=== PATIENT | male | born 1945 | race Caucasian/White ===

== ENCOUNTER → 2024-01-01 11:12 | Outpatient (REF) | payer MEDICARE, OTHER, SELFPAY | LOC: RAD 11:12 | PROVIDERS: ATTENDING PHYSICIAN Internal Medicine Gastroenterology; FAMILY PHYSICIAN Student in an Organized Health Care Education/Training Program | DX: Z85.038 Personal history of other malignant neoplasm of large intestine (principal) | CPT/HCPCS: 71260; 74177; Q9967 ==

== ENCOUNTER → 2024-04-19 09:36 | Outpatient (REF) | payer MEDICARE, OTHER, SELFPAY ==
[2024-04-19 09:55] VITALS: BP 143/86; BP_SYST 61
[2024-04-19] MEDS: ANCEF 10 IV (10:17)
[2024-04-19 11:24] VITALS: BP 126/67
[2024-04-19 11:30] VITALS: BP 139/48
== END ==
LOC: RADI 09:36
PROVIDERS: ATTENDING PHYSICIAN Internal Medicine Hematology & Oncology; FAMILY PHYSICIAN Student in an Organized Health Care Education/Training Program
DX: C18.3 Malignant neoplasm of hepatic flexure (principal)
CPT/HCPCS: 36561; 73610; 73630; 76937; 77001; 99152; 99153

== ENCOUNTER → 2024-04-20 13:34 | Outpatient (REF) | payer MEDICARE, OTHER, SELFPAY ==
[2024-04-20 11:49] LABS: % Basophils 1.2 % (0-2); % Eosinophils 3.7 % (0-6); % Immature Granulocytes 0.1 % (0-0.5); % Lymphocytes 26.8 % (20.5-51.1); % Monocytes 9.2 % (1.7-9.3); Absolute Basophils 0.1 10^3/uL (0-0.2); Absolute Eosinophils 0.3 10^3/uL (0-0.7); Absolute Monocytes 0.7 10^3/uL (0.1-0.6); Absolute Neutrophils 4.4 10^3/uL (1.4-6.5); Hematocrit 33.5 % (39.0-52.0); Hemoglobin 11.1 g/dL (13.0-18.0); Mean Corp Hgb Conc. 33.1 g/dL (33.0-37.0); Mean Corpuscular Hgb 29.7 pg (27.0-31.0); Mean Corpuscular Volume 89.6 fL (80.0-94.0); Mean Platelet Volume 9.6 fL (7.4-10.4); Platelet Count 285 10^3/uL (130-400); Red Blood Cell Count 3.74 10^6/uL (4.70-6.10); Red Cell Dist. Width 12.9 % (11.5-14.5); White Blood Cell Count 7.4 10^3/uL (4.8-10.8)
[2024-04-20 13:13] LABS: ALT (SGPT) 19 U/L (0-50); AST (SGOT) 30 U/L (17-59); Albumin 4.1 g/dl (3.5-5.0); Alkaline Phosphatase 85 U/L (38-126); Blood Urea Nitrogen 25 mg/dl (9-20); Calcium 9.3 mg/dl (8.4-10.2); Carbon Dioxide 23 mmol/L (22-30); Chloride 105 mmol/L (98-107); Glucose 90 mg/dl (70-99); Potassium 4.5 mmol/L (3.5-5.1); Sodium 138 mmol/L (135-145); Total Bilirubin 0.5 mg/dl (0.2-1.3); Total Protein 6.9 g/dl (6.3-8.2); eGFR 55.88
== END ==
LOC: OIDL 13:34
PROVIDERS: ATTENDING PHYSICIAN Internal Medicine Hematology & Oncology
DX: C18.3 Malignant neoplasm of hepatic flexure (principal)
CPT/HCPCS: 80053; 85025

== ENCOUNTER 2024-04-24 13:29 | Inpatient (IN) | payer MEDICARE, OTHER, SELFPAY ==
[2024-04-24] VITALS (21 sets, daily range): BP systolic 119–174; BP diastolic 58–87; PULSE 64; BMI 28.9; BMI 29.5
[2024-04-24] MEDS: DUONEB 3 ML INH (09:46)
--- NOTE | 2024-04-24 09:56 | ED.GENMED ---
History of Present Illness
<MIRELLA Rosa - Last Filed: 04/24/24 11:41>
General
Chief Complaint: Chest Pain
Source: patient
Exam Limitations: none
Time Seen by Provider: 04/24/24 09:38
Nursing documentation reviewed up to this point in time: agreed with
History of Present Illness
History of Present Illness:
Patient is a 78-year-old male currently undergoing treatment for colon cancer presents to the ER for evaluation of chest pain shortness of breath. Yesterday he noticed he was more short of breath on a walk and then around 2:30�3 AM this morning
developed left-sided chest pain. He woke up with continued chest pain this morning and shortness of breath. He did to aspirin. He continues to complain of shortness of breath he does feel pain in the chest and in the middle of his back as well.
He has no cardiac history.
He denies any lung history. He is not on blood thinners. He denies any recent fever or chills. He denies any other recent illness. He did have his port placed on Thursday and had first chemo on (4 days ago).
Review of Systems
<MIRELLA Rosa - Last Filed: 04/24/24 11:41>
Review of Systems
Allergies reviewed?: Yes
All Other Systems: ROS reviewed and negative except as documented in HPI and ROS
Constitutional: Denies fever, fatigue or chills
EENT: Reports no symptoms
Respiratory: Reports trouble breathing; Denies cough
Cardiac: Reports chest pain; Denies palpitations or syncope
ABD/GI: Reports no symptoms
: Reports no symptoms
Musculoskeletal: Reports back pain
Neurological: Reports no symptoms
Endocrine: Reports no symptoms
Hematologic/Lymphatic: Reports no symptoms
Psychiatric: Reports no symptoms
Phy Exam
<MIRELLA Rosa - Last Filed: 04/24/24 11:41>
General Physical Exam
General Presentation: no apparent distress
General age: appears stated age
General Skin: warm and dry
General Habitus: normal
General Mental: alert
General Hydration: appears well hydrated
Cardiovascular Exam
Cardiovascular Exam: regular rate/rhythm, no murmur and normal peripheral pulses
Pulmonary Exam
Pulmonary Exam: no respiratory distress and other (exp wheezing )
Neurological Exam
Neurological Exam: alert and oriented x3
Musculoskeletal Exam
Musculoskeletal Exam: full ROM
Skin Exam
Skin Exam: normal color and warm/dry
Psychiatric Exam
Psychiatric Exam: normal mood/affect
Scores
<MIRELLA Rosa - Last Filed: 04/24/24 11:41>
Heart Score for Chest Pain Patients
STEMI patient?: Not applicable
Course
<MIRELLA Rosa - Last Filed: 04/24/24 11:41>
Orders/Labs/Results
Orders:
Orders
04/24/24 09:40
Electrocardiogram (*1) Urgent
Reason for Study: Chest Pain
Cardiac Monitoring- Treatment ONCE
EKG- Treatment ONCE
IV Insert/Care/Rem.- Treatment PRN
O2 Therapy [RESP] Urgent
Titrate/Wean O2 to maintain O2 sat greater than (%): 90
Special Instructions: Maintain sats >/=90%
Pulse Ox/spot Check [RESP] Urgent
Quantity: 1
Special Instructions: ON ROOM AIR
04/24/24 09:44
CXR [CR Chest Portable - 1 View] Stat
Comment:
Reason For Exam: sob
Reason Study Needs to be Portable: Patient Unstable
04/24/24 09:45
Ipratropium/Albuterol Sulfate [Duoneb] 3 ml .ROUTE .[facility]-MED ONE
04/24/24 09:46
Ipratropium/Albuterol Sulfate [Duoneb] 3 ml INH R NOW ONE
04/24/24 09:55
CT Chest Pe Study Urgent
Comment:
Reason For Exam: sob
04/24/24 10:04
Complete Blood Count/With Diff Urgent
Comprehensive Metabolic Panel Urgent
Pro-BNP [NT-proBNP] Urgent
Troponin I Urgent
Abnormal Lab Results
04/24/24
10:04
RBC 4.03 L 10^6/uL
(4.70-6.10)
Hgb 11.9 L g/dL
(13.0-18.0)
Hct 36.9 L %
(39.0-52.0)
MCHC 32.2 L g/dL
(33.0-37.0)
Absolute Neuts (auto) 6.8 H 10^3/uL
(1.4-6.5)
Absolute Monos (auto) 0.7 H 10^3/uL
(0.1-0.6)
Lymphocytes % 18.3 L %
(20.5-51.1)
BUN 25 H mg/dl
(9-20)
Creatinine 1.4 H mg/dL
(0.7-1.3)
Glucose 129 H mg/dl
(70-99)
Troponin I 0.068 H* ng/ml
04/24/24 10:04
04/24/24 10:04
Vital Signs
Initial and Last Documented VS:
Initial Vital Signs
Temp Pulse Resp BP Pulse Ox
97.5 F 68 18 141/66 99
04/24/24 09:49 04/24/24 09:49 04/24/24 09:49 04/24/24 09:49 04/24/24 09:49
Last Documented Vital Signs
Temp Pulse Resp BP Pulse Ox
97.5 F 68 18 141/66 99
04/24/24 09:49 04/24/24 09:49 04/24/24 09:49 04/24/24 09:49 04/24/24 09:49
Seat Nailer consulted with Physician
Seat Nailer consulted with physician?: Yes
Name of Physician Consulted: Julio Cesar
<Kari Harrell MD - Last Filed: 04/24/24 10:13>
Orders/Labs/Results
Orders:
Orders
04/24/24 09:40
Electrocardiogram (*1) Urgent
Reason for Study: Chest Pain
Cardiac Monitoring- Treatment ONCE
EKG- Treatment ONCE
IV Insert/Care/Rem.- Treatment PRN
O2 Therapy [RESP] Urgent
Titrate/Wean O2 to maintain O2 sat greater than (%): 90
Special Instructions: Maintain sats >/=90%
Pulse Ox/spot Check [RESP] Urgent
Quantity: 1
Special Instructions: ON ROOM AIR
04/24/24 09:44
CXR [CR Chest Portable - 1 View] Stat
Comment:
Reason For Exam: sob
Reason Study Needs to be Portable: Patient Unstable
04/24/24 09:45
Ipratropium/Albuterol Sulfate [Duoneb] 3 ml .ROUTE .[facility]-MED ONE
04/24/24 09:46
Ipratropium/Albuterol Sulfate [Duoneb] 3 ml INH R NOW ONE
04/24/24 09:55
CT Chest Pe Study Urgent
Comment:
Reason For Exam: sob
04/24/24 10:04
Complete Blood Count/With Diff Urgent
Comprehensive Metabolic Panel Urgent
Pro-BNP [NT-proBNP] Urgent
Troponin I Urgent
Abnormal Lab Results
04/24/24
10:04
RBC 4.03 L 10^6/uL
(4.70-6.10)
Hgb 11.9 L g/dL
(13.0-18.0)
Hct 36.9 L %
(39.0-52.0)
MCHC 32.2 L g/dL
(33.0-37.0)
Absolute Neuts (auto) 6.8 H 10^3/uL
(1.4-6.5)
Absolute Monos (auto) 0.7 H 10^3/uL
(0.1-0.6)
Lymphocytes % 18.3 L %
(20.5-51.1)
BUN 25 H mg/dl
(9-20)
Creatinine 1.4 H mg/dL
(0.7-1.3)
Glucose 129 H mg/dl
(70-99)
Troponin I 0.068 H* ng/ml
04/24/24 10:04
04/24/24 10:04
Vital Signs
Initial and Last Documented VS:
Initial Vital Signs
Temp Pulse Resp BP Pulse Ox
97.5 F 68 18 141/66 99
04/24/24 09:49 04/24/24 09:49 04/24/24 09:49 04/24/24 09:49 04/24/24 09:49
Last Documented Vital Signs
Temp Pulse Resp BP Pulse Ox
97.5 F 68 18 141/66 99
04/24/24 09:49 04/24/24 09:49 04/24/24 09:49 04/24/24 09:49 04/24/24 09:49
<MIRELLA Rosa - Last Filed: 04/24/24 11:41>
MDM/Problems Addressed
Differential Diagnosis Includes:
Not limited to PE less likely dissection, congestive heart failure, OK, pneumonia, bronchitis
MDM/Problems Addressed:
Patient is a 78-year-old male with recent diagnosis of colon cancer status post colon resection in January recently started chemo 4 days ago with port placed on Thursday. He started with shortness of breath yesterday and then woke up in the middle of
the night with chest pain and continued shortness of breath. He does feel short of breath currently and has pain in the chest and in the middle of his back. He presents awake alert however he presents wheezing hypoxic on room air.
Stat portable chest x-ray was ordered no pneumothorax. Neb given. ED physician at bedside will order CT to rule out PE.
1135: Patient feeling better breathing improved. Troponin is elevated with new left bundle however EKG from 2007. Possible demand ischemia from being hypoxic and short of breath. White blood count stable at 9.5 hemoglobin stable 11.9
BUN/creatinine mildly elevated 25 and 1.4 CAT scan negative for PE increased reticular and groundglass opacities within both lungs representing pneumonitis. Patient with no history of CHF low BNP pulmonary edema less likely. Case reviewed with ED
physician IV antibiotics ordered. Will require admission discussed with admitting hosp.
Chronic conditions affecting care:
Colon cancer currently receiving chemotherapy
<MIRELLA Rosa - Last Filed: 04/24/24 11:41>
*Radiology
Radiology exam reviewed: radiology read reviewed
*Pulse Oximetry
Patient hypoxic: yes
*EKG
Interpreted by ED Provider?: Yes
Interpretation: abnormal
Heart Rate: 74
Rate: normal
Rhythm: sinus
QRS Pattern: left bundle branch block
*Critical Care Note
Total Time (30-74mins, 75-104mins- exclusive of procedures): Not Applicable
comment:
Critical care statement: A total of 30 minutes of critical care time was provided for this patient. This includes management of unstable vital signs, evaluation of the patient at bedside, reviewing the patient's pertinent medical records, discussion
with consultants, review of old EKGs and review of pertinent medical records. This time with separate from time utilized to perform the aforementioned documented procedures
ED Attending Note
<MIRELLA Rosa - Last Filed: 04/24/24 11:41>
-
Portions of this chart may have been created with voice recognition software.� Occasional wrong word or��sound alike� substitutions may have occurred due to the inherent limitations of voice recognition software.
<Kari Harrell MD - Last Filed: 04/24/24 10:13>
ED Attending Note
Patient seen and examined by attending physician: Yes
I performed the substantive portion of visit, reviewed & personally made and approve the management plan that is documented in note by myself or THAD.: Yes
ED Attending Note:
78-year-old male presents emergency department with complaints of left-sided chest discomfort that he states he noticed at approximately 5:30 AM this morning continues. The pain is a 'pressure', not sudden onset, not ripping or tearing in quality.
He also notes discomfort in his, which she says is 'not new' and that he gets from time to time. He does not feel that the pain in his chest is radiating through to his back. When he got up at 8 AM this morning he noted that he was mildly short of
breath when walking around as well. He denies fever, chills, cough, sore throat, rhinorrhea, abdominal pain, nausea, vomiting, leg swelling, or other complaints. Patient has a history of cancer and just received his first chemo treatment earlier
this week. He notes that he felt profound fatigue that began yesterday. On exam, patient awake alert pleasant, neb in progress. Heart regular rate and rhythm. Patient has diffuse mild wheezing with mild Rales noted at left base, no respiratory
distress, no retractions, speaks in full sentences. Differential includes PE, pneumonia, ACS, etc. Highly doubt acute aortic dissection given history and physical.
Discharge Plan
Departure
Patient Disposition: Admit
Date of Disposition: 04/24/24
Time of Disposition: 11:37
Admit to: IMU
Admit to doctor: hospitalist
Presentation/result/management discussed w/ accepting MD/DO: Hospitalist
Patient with high blood pressure during this ER visit?: Yes
Condition: Fair
Covid-19: Not Applicable
Discharge Problem:
hypoxia, Elevated troponin, Pneumonitis, left bundle branch block
Prescriptions:
No Action
amlodipine 5 mg Tablet
5 mg PO DAILY
atorvastatin 20 mg Tablet
20 mg PO DAILY
polyethylene glycol 3350 [Miralax] 17 gram Powder In Packet
17 g PO DAILY PRN (Reason: constipation)
omeprazole 40 mg Capsule,Delayed Release(Dr/Ec)
40 mg PO DAILY
benazepril 10 mg Tablet
10 mg PO DAILY
Xanax 0.5 mg
1 tab PO HS
Referrals:
Yael Jean MD [Family Provider] -
Interventions
Interventions:
*Risk Screen - Suicide Last Done: 04/24/24 09:49
*Neglect/Abuse Screening Last Done: 04/24/24 09:49
*ED COVID-19 Vaccine History Last Done: 04/24/24 09:49
ED- Cardiac Assessment Last Done: 04/24/24 09:49
Discharge Date and Time
Print Language: MAORI
[2024-04-24 10:12] LABS: % Eosinophils 1.7 % (0-6); % Immature Granulocytes 0.3 % (0-0.5); % Lymphocytes 18.3 % (20.5-51.1); % Monocytes 7.3 % (1.7-9.3); % Neutrophils 71.4 % (42.2-75.2); Absolute Basophils 0.1 10^3/uL (0-0.2); Absolute Eosinophils 0.2 10^3/uL (0-0.7); Absolute Lymphocytes 1.7 10^3/uL (1.2-3.4); Absolute Monocytes 0.7 10^3/uL (0.1-0.6); Absolute Neutrophils 6.8 10^3/uL (1.4-6.5); Hematocrit 36.9 % (39.0-52.0); Hemoglobin 11.9 g/dL (13.0-18.0); Mean Corp Hgb Conc. 32.2 g/dL (33.0-37.0); Mean Corpuscular Hgb 29.5 pg (27.0-31.0); Mean Corpuscular Volume 91.6 fL (80.0-94.0); Mean Platelet Volume 9.8 fL (7.4-10.4); Nucleated Red Blood Cells % 0 % (-); Platelet Count 244 10^3/uL (130-400); Red Blood Cell Count 4.03 10^6/uL (4.70-6.10); Red Cell Dist. Width 13.2 % (11.5-14.5); White Blood Cell Count 9.5 10^3/uL (4.8-10.8)
[2024-04-24 10:23] LABS: ALT (SGPT) 20 U/L (0-50); AST (SGOT) 28 U/L (17-59); Alkaline Phosphatase 76 U/L (38-126); Blood Urea Nitrogen 25 mg/dl (9-20); Calcium 9.6 mg/dl (8.4-10.2); Carbon Dioxide 26 mmol/L (22-30); Chloride 106 mmol/L (98-107); Estimated Creatinine Clearance 44 ml/min; Glucose 129 mg/dl (70-99); Potassium 4.8 mmol/L (3.5-5.1); Sodium 139 mmol/L (135-145); Total Bilirubin 0.4 mg/dl (0.2-1.3); Total Protein 6.7 g/dl (6.3-8.2); eGFR 51.13
[2024-04-24 10:41] LABS: NT-proBNP 186 pg/ml; Troponin I 0.068 ng/ml
[2024-04-24] MEDS: MAXIPIME 2000 MG IV (12:09)
[2024-04-24] MEDS: VANCOCIN 300 ML IV (12:20)
[2024-04-24] MEDS: VANCOCIN 300 MG IV (12:20)
--- NOTE | 2024-04-24 12:21 | HPS.HSE ---
Family Physician
<MIRELLA Kelly - Last Filed: 04/24/24 13:46>
-
Family Physician: Yael Jean MD
Chief Complaint
<MIRELLA Kelly - Last Filed: 04/24/24 13:46>
-
Shortness of breath, SANDHU, pleuritic chest pain
History of Present Illness
78-year-old male complaining of chest pain and shortness of breath. Yesterday he reported shortness of breath on exertion with walking. He reports around 230�3 AM this morning he developed left-sided/epigastric chest pain with inspiration and a
slight nonproductive cough. He does report taking an aspirin he also reported pain in the middle of his back. He is currently undergoing chemotherapy for colon cancer had first chemo 4 days ago. He also reports he did receive 1 single dose
infusion of oxaliplatin. he denies fever, chills, cough, abdominal pain, nausea, vomiting, diarrhea, urinary symptoms. Past medical history HTN, HLD, CKD 3B, GERD, anxiety, colon cancer Dx January 2024 on current chemo, hep C with interferon
treatment 1994
Medical History
<MIRELLA Kelly - Last Filed: 04/24/24 13:46>
Past Medical History
Past Medical History: Reports Other
Additional Past Medical History:
HTN
HLD
CKD 3B
GERD
anxiety
colon cancer Dx January 2024 on current chemo
hep C with interferon treatment 1994
Former smoker quit 40 years ago
Cardiac murmur
Past Surgical History: Reports Other
Additional Past Surgical History:
Port placement 04/19/2024
Foot surgery
Social History
Tobacco: Former Smoker (Quit 40 years ago)
Alcohol: Other (6 oz 1 to 2 days a week)
Drug: None
Personal:
Living: With Family ()
Employment: Retired
Family History
Family History: Not pertinent
Allergies / Home Medications
Allergies reflects when Allergies were last updated in [facility].
Home Medications with original date entered in [facility]
Allergy/Medication List:
Allergies
Allergy/AdvReac Type Severity Reaction Status Date / Time
meperidine [From Demerol] Allergy Unknown Verified 04/15/24 17:09
Sulfa (Sulfonamide Allergy Unknown Verified 04/15/24 17:09
Antibiotics)
Home Medications
alprazolam 0.5 mg tablet 0.5 mg PO HS anxiety/sleep 04/19/24
amlodipine 5 mg tablet 5 mg PO DAILY 04/19/24
atorvastatin 20 mg tablet 20 mg PO DAILY 04/19/24
benazepril 10 mg tablet 10 mg PO DAILY 04/19/24
polyethylene glycol 3350 17 gram oral powder packet (Miralax) 17 g PO DAILY PRN constipation 04/19/24
Xeloda 3 tab PO DIRECTED 04/24/24
omeprazole 20 mg capsule,delayed release 40 mg PO HS 04/24/24
ondansetron 8 mg disintegrating tablet 8 mg PO Q8H PRN nausea/vomiting 04/24/24
prochlorperazine maleate 10 mg tablet 10 mg PO Q6H PRN nausea/vomiting 04/24/24
Review of Systems
Gerardlt;MIRELLA Kelly - Last Filed: 04/24/24 13:46>
-
History Source: Patient
A 12 point ROS was completed and negative except as noted: Yes
Constitutional: Denies Fever, Fatigue or Chills
EENT: Denies Sore Throat or Runny Nose
Respiratory: Reports Cough (Nonproductive) and Trouble Breathing (SANDHU)
Cardiac: Reports Chest Pain (Epigastric to left side with inspiration); Denies Diaphoresis, Palpitations or Syncope
Abdomen/GI: Denies Abdominal Pain, Nausea, Vomiting, Diarrhea, Constipated, Bloody Stools or Black Stools
: Denies Dysuria, Frequency, Flank Pain, Incontinence, Difficulty Voiding or Urgency
Musculoskeletal: Denies Joint Pain or Edema
Skin: Denies Itching or Rash
Neurological: Denies Dizzy, Headache or Weakness
Endocrine: Reports No Symptoms
Hematologic/Lymphatic: Reports No Symptoms
Psych: Reports Calm
Physical Exam
<MIRELLA Kelly - Last Filed: 04/24/24 13:46>
Vital Signs
Vital Signs
Temp Pulse Resp BP Pulse Ox
97.5 F 60 17 137/59 97
04/24/24 09:49 04/24/24 12:15 04/24/24 12:15 04/24/24 12:07 04/24/24 12:15
Physical Exam
General: Comfortable and Conversant; No Fever or Chills
HEENT: NormoCephalic, Anicteric, Moist mucous membranes, PERRLA, [place] Conjunctivae, No Ptosis and Neck Nontender
Respiratory: Rales (Coarse fine throughout both lung wagner); No Wheezes
Cardiac: S1/S2, Regular Rhythm and Murmur (2/6 systolic); No Rub, Gallop or Peripheral Edema
Breast: Deferred by me
GI: Soft, Non Tender, Non Distended, Normal Bowel Sounds and No Hepatosplenomegaly
Rectal: Deferred by Provider
Genito-urinary: Deferred by me
Musculoskeletal: No Clubbing, No Cyanosis and No Edema
Skin: Warm, Dry and Other (Port present right upper chest wall with surrounding resolving ecchymosis as this is new placement 6 days ago); No Rash
Neuro: AO x 3, No Motor Deficits, Nonfocal/grossly intact, Cranial Nerves Intact and No Sensory Deficits; No Slurred Speech, Facial Droop or Tremors
Psych: Calm
Laboratory Results
<MIRELLA Kelly - Last Filed: 04/24/24 13:46>
-
04/24/24 10:04
04/24/24 10:04
Laboratory Results
Total Bilirubin 0.4 mg/dl (0.2-1.3) 04/24/24 10:04
AST 28 U/L (17-59) 04/24/24 10:04
ALT 20 U/L (0-50) 04/24/24 10:04
Alkaline Phosphatase 76 U/L (38-126) 04/24/24 10:04
Troponin I 0.068 ng/ml H* 04/24/24 10:04
Impression/Plan
<MIRELLA Kelly - Last Filed: 04/24/24 13:46>
-
Impression/plan:
Admit to telemetry
# Acute hypoxic resp insuff 2/2 pneumonitis bilateral lungs likely 2/2 chemotherapy
88% RA, 97% 2 L nasal cannula
-Given IV vancomycin IV cefepime in ER we will hold further antibiotics
-Consult Onc-consulted via phone regarding consideration of possible steroids
-PT/OT/case management consult
-Hold current Xeloda
CT PE study:
1. Increased reticular and groundglass opacities within both lungs representing pneumonitis.
2. Negative for PE
3. Bronchial wall thickening mainly in the lower lung suggesting bronchitis
#Nonischemic myocardial injury
#New LBBB�since 1999 and
-Troponin 0.068 will trend
-Follow EKG
-Continue aspirin 81 mg daily, atorvastatin 20 mg daily
-Check lipid profile
EKG: NSR 74 bpm, LBBB new since March 2008 QTc 472 MS
#Colon cancer on current chemotherapy
#Hemicolectomy January 2024
#Port placement 04/19/2024
1st chemotherapy 4 days ago 04/21/2024 is on Xeloda 3 tabs twice daily
-Single dose of oxaliplatin given before oral chemo
# Hx Cardiac murmur
#HTN�benign
141/66
-Continue amlodipine, benazepril
#HLD
-Continue atorvastatin 20 mg at bedtime
#CKD 3B
Creat 1.4 appears near baseline
#Normocytic anemia
Hgb 11.9, MCV 91.6
#Hep C with interferon treatment 1994
#Former smoker quit 40 years ago
DVT prophylaxis
Subcu Lovenox
DNR per patient states his son Pete is his POA is his has dementia
<Angel Jack, DO - Last Filed: 04/24/24 14:18>
-
Impression/plan:
Admit to telemetry
# Acute hypoxic resp insuff 2/2 pneumonitis bilateral lungs likely 2/2 chemotherapy
88% RA, 97% 2 L nasal cannula
-Given IV vancomycin IV cefepime in ER we will hold further antibiotics
-Consult Onc-consulted via phone regarding consideration of possible steroids
-PT/OT/case management consult
-Hold current Xeloda
CT PE study:
1. Increased reticular and groundglass opacities within both lungs representing pneumonitis.
2. Negative for PE
3. Bronchial wall thickening mainly in the lower lung suggesting bronchitis
#Nonischemic myocardial injury
#New LBBB�since 1999 and
-Troponin 0.068 will trend
-Follow EKG
-Continue aspirin 81 mg daily, atorvastatin 20 mg daily
-Check lipid profile
EKG: NSR 74 bpm, LBBB new since March 2008 QTc 472 MS
#Colon cancer on current chemotherapy
#Hemicolectomy January 2024
#Port placement 04/19/2024
1st chemotherapy 4 days ago 04/21/2024 is on Xeloda 3 tabs twice daily
-Single dose of oxaliplatin given before oral chemo
# Hx Cardiac murmur
#HTN�benign
141/66
-Continue amlodipine, benazepril
#HLD
-Continue atorvastatin 20 mg at bedtime
#CKD 3B
Creat 1.4 appears near baseline
#Normocytic anemia
Hgb 11.9, MCV 91.6
#Hep C with interferon treatment 1994
#Former smoker quit 40 years ago
DVT prophylaxis
Subcu Lovenox
DNR per patient states his son Pete is his POA is his has dementia
Attending note:
Patient seen and examined and discussed with RACHELLE Man, and I agree with her note.
Gen-AAOx3, NAD
HEENT-NC, AT, anicteric, clear oral mm
Neck-supple
CV-reg, no M, +S1/S2
Lungs-clear B/L
Abd-soft, NT, ND
Ext-no edema
Musculoskeletal-no cyanosis, clubbing
Skin-warm and dry
Neuro-grossly non-focal
Psych-calm, cooperative
Acute hypoxic respiratory insufficiency -due to pneumonitis. Oxygenation stable on 2 L. Reportedly was 89% on room air prior to arrival.
Acute pneumonitis -Suspect inflammatory component more so than infectious. Unclear if related to recent chemotherapy versus other causes. Hold further antibiotics for now pending oncology input.
No signs or symptoms of sepsis.
CT chest shows increased reticular and groundglass opacities within both lungs. Bronchial wall thickening mainly within the lower lungs suggesting bronchitis.
FAIZA -possibly due to volume depletion. Creatinine 1.4, BUN 25. Prerenal azotemia. IV fluids. Hold LAURA inhibitor.
Troponin elevation -0.068, will trend. Monitor on telemetry. EKG shows left bundle branch block with sinus rhythm. No recent baseline EKG to compare to. Differential diagnosis for troponin elevation includes ACS versus acute nonischemic
myocardial injury. Will need cardiology consult if troponin significantly elevated.
Colon cancer -T3. Just started chemotherapy on with 1 dose of oxaliplatin and oral Xeloda. Has a port in place.
ALMA -on CPAP at bedtime.
HCV
DNR
[2024-04-24 12:22] LABS: Urine Albumin Negative (Neg - Trace); Urine Bilirubin Negative (Negative); Urine Character Clear (Clear); Urine Color Straw; Urine Glucose Negative (Negative); Urine Ketone Negative (Negative); Urine Leukocyte Negative (Negative); Urine Nitrite Negative (Negative); Urine Occult Blood Negative (Negative); Urine Urobilinogen Negative (Neg - 1+)
[2024-04-24] MEDS: PROTONIX IV 40 MG IV (13:13)
[2024-04-24] MEDS: NSS (PRESERVATIVE FREE) 10 ML IV (13:13)
[2024-04-24] MEDS: TYLENOL 650 MG PO ×2 (14:05→18:37)
[2024-04-24 14:42] LABS: Troponin I 0.508 ng/ml
[2024-04-24] MEDS: ASPIRIN 325 MG PO (15:38)
[2024-04-24] MEDS: NSS 1000 IV (15:47)
--- NOTE | 2024-04-24 16:51 | CON.CAR ---
Consultation
Consultation Request
Date/Time Consultation Requested: 04/24/24 3:00pm
Date/Time Consultation Performed: 04/24/24 4:30pm
Requesting Provider: Dr Jack
Performing Provider: Dr Hebert
Reason for Consultation: chest pain
Medical History
-
Chief Complaint: chest pain
History of Present Illness:
78-year-old male with past medical history of hypertension, hyperlipidemia, colon cancer status post treatment 3 days ago with oxaliplatin and daily Xeloda, presents with left-sided chest pains and shortness of breath. The pain felt like an ache or
pressure and started at 3 AM this morning and then improved. It then again reoccurred and he presented to the emergency room. He had some mild shortness of breath. The pain seemed worse with deep breaths or twisting or pulling. He has never had
this pain before. CT scan of the chest was performed which revealed no pulmonary embolism. He denies any palpitations, dizziness, or syncope. He denies any orthopnea, PND, or edema. He has no bleeding. He has no fevers or chills. He has no
coughing or wheezing. He still is having some mild left-sided chest pain. He was also found to have a new left bundle branch block.
Past Medical History
Past Medical History: Cancer (Colon cancer diagnosed January 2024, CKD 3, GERD, hepatitis C), HTN, Hypercholesterolemia and Other (Right port placed 04/19/2024)
Social History
Tobacco: Former Smoker
Alcohol: Occasional
Drug: None
Personal:
Living: With Family
Employment: Retired
Family History
Family History: CAD and Hypertension
Allergies / Home Medications
Allergy/AdvReac Type Severity Reaction Status Date / Time
meperidine [From Demerol] Allergy Unknown Verified 04/15/24 17:09
Sulfa (Sulfonamide Allergy Unknown Verified 04/15/24 17:09
Antibiotics)
�Medication �Instructions �Recorded �Confirmed �Type
alprazolam 0.5 mg tablet 0.5 mg PO HS anxiety/sleep 04/19/24 04/24/24 History
amlodipine 5 mg tablet 5 mg PO DAILY 04/19/24 04/24/24 History
atorvastatin 20 mg tablet 20 mg PO DAILY 04/19/24 04/24/24 History
benazepril 10 mg tablet 10 mg PO DAILY 04/19/24 04/24/24 History
polyethylene glycol 3350 17 gram 17 g PO DAILY PRN constipation 04/19/24 04/24/24 History
oral powder packet (Miralax)
Xeloda 3 tab PO DIRECTED 04/24/24 04/24/24 History
omeprazole 20 mg capsule,delayed 40 mg PO HS 04/24/24 04/24/24 History
release
ondansetron 8 mg disintegrating 8 mg PO Q8H PRN nausea/vomiting 04/24/24 04/24/24 History
tablet
prochlorperazine maleate 10 mg 10 mg PO Q6H PRN nausea/vomiting 04/24/24 04/24/24 History
tablet
Review of Systems
-
History Source: Patient
Constitutional: Fatigue
EENT: No Symptoms
Respiratory: Trouble Breathing
Cardiac: Chest Pain
Abdomen/GI: No Symptoms
: No Symptoms
Musculoskeletal: No Symptoms
Skin: No Symptoms
Neurological: No Symptoms
Endocrine: No Symptoms
Hematologic/Lymphatic: No Symptoms
Physical Exam
Vital Signs
Temp Pulse Resp BP Pulse Ox
97.5 F 67 17 163/67 95
04/24/24 09:49 04/24/24 14:45 04/24/24 14:45 04/24/24 14:30 04/24/24 14:45
Lab Results
04/24/24 10:04
04/24/24 10:04
Troponin I 0.508 ng/ml H* D 04/24/24 14:04
Mzr-Y-Gdqlxcfrmke Pept 186 pg/ml 04/24/24 10:04
Physical Exam
General: Well Developed and Well Nourished
HEENT: Normocephalic and Anicteric
Respiratory: Clear and Non Labored Respirations
Cardiac: S1/S2, Regular Rhythm and Murmur (2/6 syst RSB)
GI: Soft, Non Tender and Non Distended
Genito-urinary: No Costovertebral Tender
Musculoskeletal: No Edema
Skin: Warm and Dry
Neuro: AO x 3
Hematologic/Lymphatic: No Lymphadenopathy
Psych: Calm
Impression / Plan
-
Assess:
Chest pain/non-STEMI
Colon cancer status post chemotherapy treatment with oxiplatinum and Xeloda 04/21
Hypertension
Hyperlipidemia
New left bundle branch block
CKD 3
GERD
History hepatitis C
Echo April 21, 2023, EF 55 to 60%, mild LVH, mild MR, aortic sclerosis with mild AI
Plan:
He presents with chest pains, left bundle branch block, and an abnormal troponin of 0.5. While his chest pain is somewhat atypical, I do have a high index of suspicion for possible coronary artery disease. Trend troponin
This could also be coronary spasm possibly from Xeloda. Will start aspirin, and IV heparin. Continue amlodipine. Continue Lipitor. Check lipid
Will add low-dose metoprolol 25 mg p.o. every 12. Hold benazepril for now with CKD and possible cardiac cath.
Tentative plan will be for cath in a.m. Check repeat echocardiogram
Case was discussed with hematology/Oncology who does not feel the patient will become markedly pancytopenic after this chemo treatment.
Data Reviewed
-
EKG: Tracing Personally Visualized and interpreted
Medical Tests (Nuc Med, Echo etc): Report Reviewed by me
Labs: Labs Reviewed by me
Old Records: Reviewed
[2024-04-24 18:29] LABS: Hematocrit 39.3 % (39.0-52.0); Mean Corp Hgb Conc. 33.1 g/dL (33.0-37.0); Mean Corpuscular Hgb 30.1 pg (27.0-31.0); Mean Platelet Volume 9.8 fL (7.4-10.4); Platelet Count 272 10^3/uL (130-400); Red Blood Cell Count 4.32 10^6/uL (4.70-6.10); Red Cell Dist. Width 13.2 % (11.5-14.5); White Blood Cell Count 9.2 10^3/uL (4.8-10.8)
[2024-04-24 18:38] LABS: APTT 29.3 Sec (23.4-35.0)
[2024-04-24] MEDS: HEPARIN 25000 UNITS/250 ML IV (18:39)
--- NOTE | 2024-04-24 18:56 | PTCARENOTE ---
Received pt from ED with c/o 6 out of 10 lower left breast pain. He states that it becomes an intermittent stabbing pain when he takes a deep breath. NSS infusing through his right sq port. Labs drawn. Heparin drip to be started. VSS. Will
monitor.
[2024-04-24 19:00] LABS: Troponin I 0.688 ng/ml
[2024-04-24] MEDS: LOPRESSOR 25 MG PO (22:04)
[2024-04-24] MEDS: XANAX 0.5 MG PO (22:04)
[2024-04-24] MEDS: PROTONIX 40 MG PO (22:04)
[2024-04-25] VITALS (10 sets, daily range): BP systolic 112–130; BP diastolic 61–75; PULSE 61; O2SAT 99–100; BMI 29.6
[2024-04-25 02:30] LABS: % Basophils 0.8 % (0-2); % Eosinophils 1.8 % (0-6); % Immature Granulocytes 0.2 % (0-0.5); % Lymphocytes 25.8 % (20.5-51.1); % Monocytes 6.7 % (1.7-9.3); % Neutrophils 64.7 % (42.2-75.2); Absolute Basophils 0.1 10^3/uL (0-0.2); Absolute Eosinophils 0.2 10^3/uL (0-0.7); Absolute Lymphocytes 2.3 10^3/uL (1.2-3.4); Absolute Monocytes 0.6 10^3/uL (0.1-0.6); Absolute Neutrophils 5.7 10^3/uL (1.4-6.5); Hematocrit 32.4 % (39.0-52.0); Hemoglobin 10.6 g/dL (13.0-18.0); Mean Corp Hgb Conc. 32.7 g/dL (33.0-37.0); Mean Corpuscular Hgb 29.7 pg (27.0-31.0); Mean Corpuscular Volume 90.8 fL (80.0-94.0); Mean Platelet Volume 10.2 fL (7.4-10.4); Nucleated Red Blood Cells % 0 % (-); Platelet Count 241 10^3/uL (130-400); Red Blood Cell Count 3.57 10^6/uL (4.70-6.10); Red Cell Dist. Width 13.2 % (11.5-14.5); White Blood Cell Count 8.9 10^3/uL (4.8-10.8)
[2024-04-25 03:00] LABS: Blood Urea Nitrogen 22 mg/dl (9-20); Carbon Dioxide 25 mmol/L (22-30); Chloride 107 mmol/L (98-107); Estimated Creatinine Clearance 46 ml/min; Glucose 99 mg/dl (70-99); HDL Cholesterol 48 mg/dl; LDL Cholesterol, Calculated 61 mg/dl; Potassium 4.4 mmol/L (3.5-5.1); Sodium 139 mmol/L (135-145); Total Cholesterol 127 mg/dl (50-199); Triglyceride 94 mg/dl (10-149); Very Low Density Lipoprotein 18 mg/dl (0-30); eGFR 55.88
[2024-04-25] MEDS: NSS 1000 IV (03:00)
[2024-04-25] MEDS: LOW STRENGTH ASPIRIN 81 MG PO (08:40)
[2024-04-25] MEDS: LOPRESSOR 25 MG PO ×2 (08:40→19:27)
[2024-04-25] MEDS: NORVASC 5 MG PO (08:40)
[2024-04-25] MEDS: LIPITOR 20 MG PO (08:40)
--- NOTE | 2024-04-25 10:10 | CON.PUL ---
Consultation
Consultation Request
Date/Time Consultation Requested: 04/25/2024-8 AM
Date/Time Consultation Performed: 04/25/2024-8:30 AM
Requesting Provider: Hospitalist
Performing Provider: Dr. Mccabe
Reason for Consultation: Abnormal CT chest
Medical History
-
Chief Complaint: Shortness of breath
History of Present Illness:
78-year-old male with a history of hypertension, hyperlipidemia, obstructive sleep apnea with recent diagnosis of colon cancer undergoing immunotherapy/chemotherapy and pulmonary consulted for abnormal CT chest 04/25/2024. Patient has very little
pulmonary complaints. Has mild dyspnea on exertion. Yesterday he had some pleuritic pain on the left side which is subsequently resolved. He has mild dyspnea on exertion. He currently denies any chest pain, chest tightness, wheezing, productive
cough, hemoptysis, abdominal pain, nausea, leg swelling or weakness.
Past Medical History
Past Medical History: None (Hypertension. Hyperlipidemia. Chronic kidney disease stage IIIb. GERD. Anxiety. Colon cancer diagnosed January 2024 on immunotherapy/chemotherapy. Hepatitis C/interferon treatment 1994. Former ahyvra-84-heio-year
quit 31 years old.)
Social History
Tobacco: Former Smoker (Less than 05-[id number]-[id number]-three quarters of a pack daily from 19 to 31 years of age)
Alcohol: Occasional
Drug: None
Personal:
Living: With Family
Occupational Exposures: No known asbestos exposure
Environmental Exposures: No known tuberculosis exposure
Family History
Family History: Other (Father-CAD. Okhlpf-kqevyb-giciw.)
Allergies / Home Medications
Allergies
Allergy/AdvReac Type Severity Reaction Status Date / Time
meperidine [From Demerol] Allergy Unknown Verified 04/15/24 17:09
Sulfa (Sulfonamide Allergy Unknown Verified 04/15/24 17:09
Antibiotics)
Home Medications
�Medication �Instructions �Recorded �Confirmed �Last Taken �Type
alprazolam 0.5 mg tablet 0.5 mg PO HS anxiety/sleep 04/19/24 04/24/24 Unknown History
amlodipine 5 mg tablet 5 mg PO DAILY Blood Pressure 04/19/24 04/24/24 04/24/24 History
atorvastatin 20 mg tablet 20 mg PO DAILY High Cholesterol 04/19/24 04/24/24 04/24/24 History
benazepril 10 mg tablet 10 mg PO DAILY Blood Pressure 04/19/24 04/24/24 04/24/24 History
polyethylene glycol 3350 17 gram 17 g PO DAILY PRN constipation 04/19/24 04/24/24 Unknown History
oral powder packet (Miralax)
Xeloda 3 tab PO DIRECTED Cancer 04/24/24 04/24/24 04/24/24 History
omeprazole 20 mg capsule,delayed 40 mg PO HS Gastrointestinal Issue 04/24/24 04/24/24 04/23/24 History
release
ondansetron 8 mg disintegrating 8 mg PO Q8H PRN nausea/vomiting 04/24/24 04/24/24 Unknown History
tablet
prochlorperazine maleate 10 mg 10 mg PO Q6H PRN nausea/vomiting 04/24/24 04/24/24 Unknown History
tablet
Review of Systems
-
Unable to Obtain full review of systems at this time due to: Other (Per HPI)
Vitals / Labs / Diagnostic Testing
Vital Signs
Temp Pulse Resp BP Pulse Ox
97.4 F 62 18 121/71 97
04/25/24 08:43 04/25/24 08:43 04/25/24 08:43 04/25/24 08:43 04/25/24 08:43
Lab Data
04/25/24 02:03
04/25/24 02:03
Laboratory Results
04/24/24 04/25/24 04/25/24
18:21 00:49 07:13
APTT 29.3 82.0 H 114.0 H
Diagnostic Testing:
Physical Exam
-
Exam:
Well-nourished and well-developed in no apparent distress
HEENT-atraumatic, normocephalic
Neck-supple, no JVD, no bruit
Heart-regular rate and rhythm-systolic murmur
Chest with diminished breath sounds, rare end inspiratory crackle at the base without wheezes
Back without tenderness
Abdomen-soft, nontender, nondistended, no hepatosplenomegaly
Extremities-no cyanosis, clubbing, no edema
Integument-intact, no rashes, lesions or ecchymosis
Neurology-alert and oriented, nonfocal motor and sensory exam
Assessment
-
78-year-old male with a history of hypertension, hyperlipidemia, obstructive sleep apnea with recent diagnosis of colon cancer undergoing immunotherapy/chemotherapy and pulmonary consulted for abnormal CT chest 04/25/2024.
Atypical chest pain and shortness of breath
Mild anemia-hemoglobin 10.6-normocytic
Elevated troponin
Conditions present prior to admission:
Hypertension.
Hyperlipidemia.
Chronic kidney disease stage IIIb.
GERD.
Anxiety/depression
Colon cancer diagnosed January 2024-status post resection, 6 of 40 lymph nodes positive for on immunotherapy/chemotherapy-oxaliplatin and Xeloda.
Hepatitis C/interferon treatment 1994.
Obstructive sleep [id number], desaturation chula 77%-WmfoGxm-5-71 cm
Periodic limb movements of sleep
COPD/restrictive lung disease
Decreased diffusing capacity
Former ckgdly-93-fvol-year quit 31 years old.
Pulmonary nodule-4 mm left lower lobe stable 2014 through 2021
Elevated hemidiaphragm
Chronic cough
Postnasal drip
Vasomotor rhinitis
History of shingles
Hiatal hernia
Bilateral cataract
Postnasal drip
Shoulder surgery 10 years ago
Plan
Mild respiratory decompensation with abnormal CT chest, noted aortic regurgitation, aortic sclerosis, mild mitral regurgitation, possible fluid overload and pneumonitis
Multiple radiographs as well as multiple CTs chest summarized below
Recommended treating pneumonia as well as possible fluid overload with radiographic follow-up
Oxaliplatin and Xeloda recently started-can cause interstitial pneumonitis, but, he has only received 1 dose 1 week ago and unless hypersensitivity reaction less likely immunotherapy/chemotherapy induced lung injury
Hold oxaliplatin and Xeloda for now
Obtain oncological opinion
Trend troponin
Cardiology evaluation
Consider cardiac catheterization
Echocardiogram noted below
Diuresis as tolerated
Monitor renal function, electrolytes, intake/output, lower extremity edema and weight
Replace electrolytes as needed
Monitor hemoglobin
Transfuse if needed
DVT prophylaxis-on heparin
GI prophylaxis-on pantoprazole
Nutrition
Early mobilization
Last seen by Dr. Mccabe/-had been recommended follow-up in 1 year for CPAP compliance-will see sooner after this hospitalization
Diagnostic data:
Chest x-ray 01/15/2022-new mild to moderate elevation right hemidiaphragm
Chest x-ray 04/24/2024-increased reticular nodular markings within both lung, likely representing interstitial type pneumonia
CT chest 01/23/22-cough and elevated diaphragm, findings-Mildly elevated right hemidiaphragm, unchanged prior chest x-ray 01/15/22, no significant change compared to abdomen. CT 01/04/15, mild linear opacification each lung base suggesting subsegmental
atelectasis, right greater than left, no evidence for lobar pneumonia, emphysema or interstitial fibrosis, small lung nodule at the left base, 4 mm, unchanged compared to prior abdominal CT dating to and likely benign, moderate coronary artery
calcifications, mild aortic valvular calcification.
CT chest abdomen pelvis 01/01/2024-focal wall thickening and luminal narrowing superior aspect of ascending colon, no pathological mesenteric lymphadenopathy, small groundglass nodule left lower lobe measuring 4 mm, linear opacification at the Base
Suggesting Scarring or Subsegmental Atelectasis, No Lobar Airspace Consolidation, Pleural Effusion or Pneumothorax
CT Chest 04/24/2024-Negative for Pulm Embolism, Increased Reticular and Groundglass Opacifications within Both Lungs Likely Representing Pneumonitis, Pulmonary Edema Could Be Considered on Differential but Less Likely, Bronchial Wall Thickening May
within the Lower Lungs Suggesting Bronchitis
PET Scan 04/04/2024-No PET/CT Evidence for Hypermetabolic Metastatic Disease
Echocardiogram 04/21/2023-EF 55-60%, mild mitral regurgitation, aortic sclerosis with mild aortic regurgitation, normal pulmonary artery pressures
Spirometry 11/12/22-FEV1 1.89 L-64%, FVC 2.75 L-67%, no significant BD response. Moderate obstruction
PFT 02/10/23-FEV1 2.24-78%, FVC 3.45-85%, 8% BD response, TLC 69%, RV 44%, DLCO 84%. Mild combined obstruction and restriction with mild reduction in diffusing capacity.
6 minute walk test 02/10/23-Ambulated 1050 feet with a desaturation chula of 94%. The maximum heart rate of 101. Maximum dyspnea scale score 0. No supplemental oxygen required.
HST 10/08/2022-AHI-25, desaturation chula 77%, 1.1-minute spent less than 88% saturation-on AutoPap-average 7-10 cm
Data Reviewed
-
PFT: Report reviewed by me
EKG: Report reviewed by me
Radiology: Image personally visualized and interpreted and Report reviewed by me
CT Scan: Image personally visualized and interpreted and Report reviewed by me
Medical Tests (Nuc Med, Echo etc): Report reviewed by me
Labs: Labs reviewed by me
Old Records: Reviewed
Total Time Spent with Patient (in minutes): 65
--- NOTE | 2024-04-25 10:54 | PTCARENOTE ---
Pt AOx3, no complaints of pain, discomfort, or SOB. Heparin gtt infusing per orders. Independent with ADLs. NPO for possible cathodic protection technician today. VSS. Call coughlin within reach.
--- NOTE | 2024-04-25 12:34 | CM ---
Reviewed chart. Met with Mr. Bhatti to review discharge plans. He states prior to admission he resides alone in a two story home with two steps to enter. He states he has a first floor living arrangement. He states his spouse is currently in the
hospital, but she is residing at [facility] assisted living. She has been there since September. He states prior to admission he was independent with ambulation and adls. He states he has a CPAP Machine at home. He
states he has a prescription plan and uses [facility]. Medical work-up in progress. The discharge plan is to return home when medically stable.
--- NOTE | 2024-04-25 14:00 | PTOTSP ---
Patient is independent with functional mobility. No skilled PT needs at this time. Will D/C PT services.
--- NOTE | 2024-04-25 14:13 | W.PN.CARDCBS ---
Addendum entered and electronically signed by Misty Wilcox MD 04/25/24 21:41:
I saw and examined the patient.
The Court Officer's note was reviewed and I agree with the note.
Comment: Remains CP free, not exertional in nature per patient, possible pleuritic component. LBBB on ECG.
Echo completed and reviewed with normal biventricular function.
Labs and vitals reviewed. Exam with gentleman in NAD, RR, normal S1 and S2, no m/r/g, abd soft, NT, ND +BS, warm extrem, Lungs CTAB.
Reccs:
1. Plan for cath in AM. Informed consent obtained after discussion of risks and benefits.
2. Cont heparin gtt for now. TRending trops.
Misty Wilcox MD
Original Note:
Today's Communication / Plan
-
Heparin gtt renewed
Cath planned for AM
Check echo and trend Troponin
Impression / Plan
-
PCP: Dr. Jean
Cardiology: None prior to admission, seen initially by Dr. Hebert
Impression:
Chest pain
Elevated Troponin, possible NSTEMI, Troponin up to 0.68 and trending
Colon cancer status post chemotherapy treatment with oxiplatinum and Xeloda 04/21
Hypertension
Hyperlipidemia
New left bundle branch block
CKD 3
GERD
History hepatitis C
Echo 04/21/23: EF 55 to 60%, mild LVH, mild MR, aortic sclerosis with mild AI
Echo 04/25/24: Study pending
Plan:
-No recurrence of chest pain
-Remains on Heparin gtt. Platelet count 241 and stable. Heparin gtt renewed by nj 04/25/24
-Troponin up to 0.688 on 04/24/24 PM. Additional Troponin ordered for now and in AM
-Echo ordered for now
-New to Lopressor 25 mg BID this admission
-Outpatient dose of benazepril is on hold due to CKD and plans for cardiac cath
-Outpatient dose of amlodipine 5 mg daily continued
-LDL 61, outpatient dose of atorvastatin 20 mg daily continued. Might increase dose if CAD found
-Reviewed with patient that it is possible his Xeloda chemotherapy treatment for colon cancer might have caused coronary spasm.
HPI: He presents with chest pains, left bundle branch block, and an abnormal troponin of 0.5. While his chest pain is somewhat atypical, I do have a high index of suspicion for possible coronary artery disease. Trend troponin
Progress Note - Pain[employer] And [employer]
Subjective
Date of Service: April 25, 2024
He feels well, no chest pain
Objective
Labs:
04/25/24 02:03
04/25/24 02:03
Labs
Hgb 10.6 g/dL (13.0-18.0) L 04/25/24 02:03
Hct 32.4 % (39.0-52.0) L 04/25/24 02:03
Plt Count 241 10^3/uL (130-400) 04/25/24 02:03
APTT 114.0 Sec (23.4-35.0) H 04/25/24 07:13
Sodium 139 mmol/L (135-145) 04/25/24 02:03
Potassium 4.4 mmol/L (3.5-5.1) 04/25/24 02:03
BUN 22 mg/dl (9-20) H 04/25/24 02:03
Creatinine 1.3 mg/dL (0.7-1.3) 04/25/24 02:03
Glucose 99 mg/dl (70-99) 04/25/24 02:03
Troponins
04/24/24 04/24/24 04/24/24
10:04 14:04 18:21
Troponin I 0.068 H* 0.508 H* D 0.688 H* D
Vital Signs and I&O:
Vital Signs
Temp Pulse Resp BP Pulse Ox
97.8 F 56 20 118/61 99
04/25/24 11:15 04/25/24 11:45 04/25/24 11:15 04/25/24 11:15 04/25/24 11:15
Vital Signs
Temp Pulse Resp BP Pulse Ox
97.8 F 56 20 118/61 99
04/25/24 11:15 04/25/24 11:45 04/25/24 11:15 04/25/24 11:15 04/25/24 11:15
Physical Exam
Physical Exam
GEN: NAD. AAOx3
HEENT: EOMI, MMM
LUNGS: No audible wheeze
CV: SR with LBBB on tele
ABD: ND
EXT: No edema B/L
NEURO: Gross non-focal
SKIN: No rash
--- NOTE | 2024-04-25 15:22 | CON.ONC ---
Impression
Impression
Stage III colon cancer, first cycle of oxaliplatin and Xeloda on April 21
Shortness of breath and chest pain
Interstitial lung process, predominantly perihilar
Treated hepatitis C
Plan
Plan
Unclear process at this point. Both oxaliplatin and Xeloda have been associated, albeit rarely, with interstitial pneumonitis. The oxaliplatin cases have oftentimes been fatal even with steroids. Agree with plans to hold Xeloda for now. Also of
note, he was not on immunotherapy, which would be a more common cause of pneumonitis.
Await results of cardiac catheterization. Repeat studies to evaluate the interstitial process. Make a decision about possible steroids in the next 1 to 2 days. It remains unclear to me whether some of the process on the CT may be mild fluid
retention. We will continue to follow.
Patient History
History of Present Illness
Consult from Dr. Jack regarding colon cancer
This 78-year-old man was admitted with chest pain and breathing difficulties. Both of these came on early in the morning, without any known precipitating factors. He is still experiencing some left-sided chest discomfort, but his breathing is much
improved. His troponins have been as high as 0.688. CT of the chest showed a mild interstitial process, more pronounced at the hilar regions. He is due for catheterization tomorrow.
He is known to our office with a recently diagnosed stage III colon cancer. He received his first dose of oxaliplatin on April 21, and has been taking Xeloda since then.
Past-Medical/Surgical History
Hypertension
Chronic kidney disease
Treated hepatitis C
Patient Medication
�Medication �Instructions �Recorded �Confirmed �Last Taken �Type
alprazolam 0.5 mg tablet 0.5 mg PO HS anxiety/sleep 04/19/24 04/24/24 Unknown History
amlodipine 5 mg tablet 5 mg PO DAILY Blood Pressure 04/19/24 04/24/24 04/24/24 History
atorvastatin 20 mg tablet 20 mg PO DAILY High Cholesterol 04/19/24 04/24/2404/24/24 History
benazepril 10 mg tablet 10 mg PO DAILY Blood Pressure 04/19/24 04/24/24 04/24/24 History
polyethylene glycol 3350 17 gram 17 g PO DAILY PRN constipation 04/19/24 04/24/24 Unknown History
oral powder packet (Miralax)
Xeloda 3 tab PO DIRECTED Cancer 04/24/24 04/24/24 04/24/24 History
omeprazole 20 mg capsule,delayed 40 mg PO HS Gastrointestinal Issue 04/24/24 04/24/24 04/23/24 History
release
ondansetron 8 mg disintegrating 8 mg PO Q8H PRN nausea/vomiting 04/24/24 04/24/24 Unknown History
tablet
prochlorperazine maleate 10 mg 10 mg PO Q6H PRN nausea/vomiting 04/24/24 04/24/24 Unknown History
tablet
Active Medications
Generic Name Dose Route Start Last Admin
Trade Name Freq PRN Reason Stop Dose Admin
Acetaminophen 650 mg 04/24/24 13:37 04/24/24 18:37
Acetaminophen 325 Mg Tablet PO 05/22/24 13:36 650 mg
Q4HPRN PRN Administration
mild pain/SMALL/temp> 100.4F
Alprazolam 0.5 mg 04/24/24 22:00 04/24/24 22:04
Alprazolam 0.5 Mg Tablet PO 05/22/24 21:59 0.5 mg
HS SHAKEEL Administration
Amlodipine Besylate 5 mg 04/25/24 08:00 04/25/24 08:40
Amlodipine 5 Mg Tablet PO 05/23/24 07:59 5 mg
DAILY SHAKEEL Administration
Aspirin 81 mg 04/25/24 08:00 04/25/24 08:40
Aspirin 81 Mg Chewable Tablet PO 05/23/24 07:59 81 mg
DAILY SHAKEEL Administration
Atorvastatin Calcium 20 mg 04/25/24 08:00 04/25/24 08:40
Atorvastatin (Lipitor) 20 Mg Tablet PO 05/23/24 07:59 20 mg
DAILY SHAKEEL Administration
Sodium Chloride 1,000 mls @ 80 mls/hr 04/24/24 14:30 04/25/24 03:00
Nss IV 04/25/24 15:29 1,000 mls
.[id number] SHAKEEL Administration
Heparin Sodium 25,000 units in 250 mls @ 0 mls/hr 04/24/24 17:15 04/24/24 18:39
Heparin 69023 Units/250 Ml IV 250 mls
PER PROTOCOL SHAKEEL Administration
Protocol
Per Protocol
Metoprolol Tartrate 25 mg 04/24/24 20:00 04/25/24 08:40
Metoprolol 25 Mg Regular Release Tablet PO 05/22/24 19:59 25 mg
BID SHAKEEL Administration
Ondansetron HCl 8 mg 04/24/24 13:47
Ondansetron 4 Mg (Orally-Disintegrating) Tablet PO 05/22/24 13:46
Q8H PRN
nausea/vomiting
Pantoprazole Sodium 40 mg 04/24/24 22:00 04/24/24 22:04
Pantoprazole 40 Mg Delayed Release Tablet PO 05/22/24 21:59 40 mg
HS SHAKEEL Administration
Polyethylene Glycol 17 grams 04/24/24 13:37
Polyethylene Glycol Powder 17 Grams Packet PO 05/22/24 13:36
DAILY PRN
constipation
Prochlorperazine Maleate 10 mg 04/24/24 13:37
Prochlorperazine 10 Mg Tablet PO 05/22/24 13:36
Q6H PRN
nausea/vomiting
Sodium Chloride 0 flush 04/24/24 12:00
Sodium Chloride 0.9% (Flush) Syringe IV 05/22/24 11:59
PER PROTOCOL SHAKEEL
Review of Systems
-
All Other Systems: Reviewed and Negative
Physical Exam
-
Physical examination shows the patient to be in no acute distress.
HEENT exam is unremarkable.
There are no palpable nodes.
Chest is clear.
The heart is regular with no murmur or gallop.
The abdomen is soft and nontender with no organomegaly or masses.
Extremities are unremarkable.
Neurologic is grossly intact.
Labs
Lab Results
WBC 8.9 10^3/uL (4.8-10.8) 04/25/24 02:03
RBC 3.57 10^6/uL (4.70-6.10) L 04/25/24 02:03
Hgb 10.6 g/dL (13.0-18.0) L 04/25/24 02:03
Hct 32.4 % (39.0-52.0) L 04/25/24 02:03
MCV 90.8 fL (80.0-94.0) 04/25/24 02:03
MCH 29.7 pg (27.0-31.0) 04/25/24 02:03
MCHC 32.7 g/dL (33.0-37.0) L 04/25/24 02:03
RDW 13.2 % (11.5-14.5) 04/25/24 02:03
Plt Count 241 10^3/uL (130-400) 04/25/24 02:03
MPV 10.2 fL (7.4-10.4) 04/25/24 02:03
Abs Immat Gran (auto) 0.0 10^3/uL (0-0.05) 04/25/24 02:03
Absolute Neuts (auto) 5.7 10^3/uL (1.4-6.5) 04/25/24 02:03
Absolute Lymphs (auto) 2.3 10^3/uL (1.2-3.4) 04/25/24 02:03
Absolute Monos (auto) 0.6 10^3/uL (0.1-0.6) 04/25/24 02:03
Absolute Eos (auto) 0.2 10^3/uL (0-0.7) 04/25/24 02:03
Absolute Basos (auto) 0.1 10^3/uL (0-0.2) 04/25/24 02:03
Immature Gran % 0.2 % (0-0.5) 04/25/24 02:03
Neutrophils % 64.7 % (42.2-75.2) 04/25/24 02:03
Lymphocytes % 25.8 % (20.5-51.1) 04/25/24 02:03
Monocytes % 6.7 % (1.7-9.3) 04/25/24 02:03
Eosinophils % 1.8 % (0-6) 04/25/24 02:03
Basophils % 0.8 % (0-2) 04/25/24 02:03
Creatinine 1.3 mg/dL (0.7-1.3) 04/25/24 02:03
Vital Signs
Vital Signs
Temp Pulse Resp BP Pulse Ox
97.8 F 56 20 118/61 99
04/25/24 11:15 04/25/24 11:45 04/25/24 11:15 04/25/24 11:15 04/25/24 11:15
[2024-04-25 15:32] LABS: APTT 67.1 Sec (23.4-35.0)
[2024-04-25 15:59] LABS: Troponin I 0.284 ng/ml
--- NOTE | 2024-04-25 18:03 | W.PN.HOSP.TC ---
Today's Communication/Plan
-
cath tomorrow; trend trops. Echo. continue IV Heparin.
Assessment / Plan
Assessment / Plan
Assessment:
Acute hypoxic respiratory insufficiency - due to pneumonitis. Oxygenation improved, now on RA. Reportedly was 89% on room air prior to arrival and briefly required 2L NC.
Acute pneumonitis -Suspect inflammatory component more so than infectious. Unclear if related to recent chemotherapy versus other causes. Hold further antibiotics. Appreciate pulm input.
- CT chest shows increased reticular and ground-glass opacities within both lungs. Bronchial wall thickening mainly within the lower lungs suggesting bronchitis.
FAIZA
- possibly due to volume depletion. Creatinine 1.4, BUN 25. Prerenal azotemia. IV fluids. Hold LAURA inhibitor.
Troponin elevation with chest pain
- EKG: shows left bundle branch block with sinus rhythm
- trend trops to peak
- Lopressor BID
- continue IV heparin drip
- LDL 61; statin
- DCA cards following; for Cath tomorrow
- Echo pending
Essential HTN
- continue Norvasc 5mg daily
Colon cancer - T3. Just started chemotherapy on with 1 dose of oxaliplatin and oral Xeloda. Has a port in place. Oncology following.
ALMA -on CPAP at bedtime.
HCV
Code: DNR
Anticipated Discharge: > 48 hours
Subjective/Interval History
-
Date of Service: April 25, 2024
denies any new complaints at present
Objective Data
-
Labs:
Laboratory Results
04/25/24 04/25/24 04/25/24
07:13 15:08 21:50
APTT 114.0 H 67.1 H Pending
Vital Signs:
Vital Signs
Temp Pulse Resp BP Pulse Ox
97.8 F 68 20 120/75 97
04/25/24 15:52 04/25/24 15:45 04/25/24 15:52 04/25/24 13:08 04/25/24 15:52
Physical Exam
-
General: No Apparent Distress
HEENT: Normocephalic and Atraumatic
Respiratory: Negative Wheezes
Cardiac: Regular Rhythm and S1/S2
GI: Soft
Neuro: AO x 3
Hematologic / Lymphatic: No Lymphadenopathy
Psych: Calm
Data Reviewed
-
Total Time Spent with Patient (in minutes): 45
Labs: Labs Reviewed by me
[2024-04-25] MEDS: HEPARIN 25000 UNITS/250 ML IV (19:27)
[2024-04-25] MEDS: PROTONIX 40 MG PO (21:58)
[2024-04-25] MEDS: XANAX 0.5 MG PO (21:58)
[2024-04-25 22:11] LABS: APTT 86.5 Sec (23.4-35.0)
[2024-04-26] VITALS (15 sets, daily range): BP systolic 110–146; BP diastolic 59–90; PULSE 60
[2024-04-26 05:55] LABS: % Eosinophils 4.5 % (0-6); % Immature Granulocytes 0.3 % (0-0.5); % Lymphocytes 26.9 % (20.5-51.1); % Monocytes 8.4 % (1.7-9.3); % Neutrophils 58.9 % (42.2-75.2); Absolute Basophils 0.1 10^3/uL (0-0.2); Absolute Eosinophils 0.3 10^3/uL (0-0.7); Absolute Lymphocytes 1.7 10^3/uL (1.2-3.4); Absolute Monocytes 0.5 10^3/uL (0.1-0.6); Absolute Neutrophils 3.7 10^3/uL (1.4-6.5); Hematocrit 30.9 % (39.0-52.0); Hemoglobin 10.3 g/dL (13.0-18.0); Mean Corp Hgb Conc. 33.3 g/dL (33.0-37.0); Mean Corpuscular Hgb 29.3 pg (27.0-31.0); Mean Corpuscular Volume 87.8 fL (80.0-94.0); Nucleated Red Blood Cells % 0 % (-); Platelet Count 213 10^3/uL (130-400); Red Blood Cell Count 3.52 10^6/uL (4.70-6.10); White Blood Cell Count 6.3 10^3/uL (4.8-10.8)
[2024-04-26 06:08] LABS: APTT 93.8 Sec (23.4-35.0)
[2024-04-26 06:19] LABS: Blood Urea Nitrogen 22 mg/dl (9-20); Calcium 8.9 mg/dl (8.4-10.2); Carbon Dioxide 24 mmol/L (22-30); Chloride 106 mmol/L (98-107); Estimated Creatinine Clearance 46 ml/min; Glucose 101 mg/dl (70-99); Potassium 4.4 mmol/L (3.5-5.1); Sodium 138 mmol/L (135-145); eGFR 55.88
[2024-04-26 06:22] LABS: Troponin I 0.234 ng/ml
[2024-04-26] MEDS: LOW STRENGTH ASPIRIN 81 MG PO (09:07)
--- NOTE | 2024-04-26 09:44 | W.PN.PUL.V3 ---
Today's Communication / Plan
-
Cardiac catheterization
Diuresis
Medical therapy versus bypass grafting
After adequate diuresis repeat imaging-if interstitial pattern resolves then majority was likely fluid related and not immuno/chemotherapy induced
Assessment
-
78-year-old male with a history of hypertension, hyperlipidemia, obstructive sleep apnea with recent diagnosis of colon cancer undergoing immunotherapy/chemotherapy and pulmonary consulted for abnormal CT chest 04/25/2024.
Atypical chest pain and shortness of breath
Mild anemia-hemoglobin 10.6-normocytic
Elevated troponin
Conditions present prior to admission:
Hypertension.
Hyperlipidemia.
Chronic kidney disease stage IIIb.
GERD.
Anxiety/depression
Colon cancer diagnosed January 2024-status post resection, 6 of 40 lymph nodes positive for on immunotherapy/chemotherapy-oxaliplatin and Xeloda.
Hepatitis C/interferon treatment 1994.
Obstructive sleep [id number], desaturation chula 77%-HbtpYon-2-60 cm
Periodic limb movements of sleep
COPD/restrictive lung disease
Decreased diffusing capacity
Former karkhh-50-iacr-year quit 31 years old.
Pulmonary nodule-4 mm left lower lobe stable 2014 through 2021
Elevated hemidiaphragm
Chronic cough
Postnasal drip
Vasomotor rhinitis
History of shingles
Hiatal hernia
Bilateral cataract
Postnasal drip
Shoulder surgery 10 years ago
Plan
Mild respiratory decompensation with abnormal CT chest, noted aortic regurgitation, aortic sclerosis, mild mitral regurgitation, suspected fluid overload and pneumonitis
Multiple radiographs as well as multiple CTs chest summarized below
Recommended treating pneumonia as well as fluid overload with radiographic follow-up
Oxaliplatin and Xeloda recently started-can cause interstitial pneumonitis, but, he has only received 1 dose 1 week ago and unless hypersensitivity reaction less likely immunotherapy/chemotherapy induced lung injury
Hold oxaliplatin and Xeloda for now
Oncology following-correspondence reviewed
Troponin trended
Cardiology evaluation noted-correspondence reviewed
Cardiac catheterization 04/26/2024-significant CAD-50% distal left main extending into 80% ostial left circumflex, 70% ostial intermedius and 50 to 60% ostial LAD stenosis and elevated left ventricular end-diastolic pressure at 33
Discussions in regards to medical therapy versus bypass grafting
Echocardiogram summarized below
Continue diuresis as tolerated
Monitor renal function, electrolytes, intake/output, lower extremity edema and weight
Replace electrolytes as needed
After adequate diuresis repeat imaging-if interstitial pattern resolves then majority was likely fluid related and not immuno/chemotherapy induced
Follow hemoglobin
Transfuse if needed
DVT prophylaxis-on heparin
GI prophylaxis-on pantoprazole
Nutrition
Early mobilization
Reviewed with nursing
Last seen by Dr. Mccabe/-had been recommended follow-up in 1 year for CPAP compliance-will see sooner after this hospitalization
Diagnostic data:
Chest x-ray 01/15/2022-new mild to moderate elevation right hemidiaphragm
Chest x-ray 04/24/2024-increased reticular nodular markings within both lung, likely representing interstitial type pneumonia
CT chest 01/23/22-cough and elevated diaphragm, findings-Mildly elevated right hemidiaphragm, unchanged prior chest x-ray 01/15/22, no significant change compared to abdomen. CT 01/04/15, mild linear opacification each lung base suggesting subsegmental
atelectasis, right greater than left, no evidence for lobar pneumonia, emphysema or interstitial fibrosis, small lung nodule at the left base, 4 mm, unchanged compared to prior abdominal CT dating to and likely benign, moderate coronary artery
calcifications, mild aortic valvular calcification.
CT chest abdomen pelvis 01/01/2024-focal wall thickening and luminal narrowing superior aspect of ascending colon, no pathological mesenteric lymphadenopathy, small groundglass nodule left lower lobe measuring 4 mm, linear opacification at the Base
Suggesting Scarring or Subsegmental Atelectasis, No Lobar Airspace Consolidation, Pleural Effusion or Pneumothorax
CT Chest 04/24/2024-Negative for Pulm Embolism, Increased Reticular and Groundglass Opacifications within Both Lungs Likely Representing Pneumonitis, Pulmonary Edema Could Be Considered on Differential but Less Likely, Bronchial Wall Thickening May
within the Lower Lungs Suggesting Bronchitis
PET Scan 04/04/2024-No PET/CT Evidence for Hypermetabolic Metastatic Disease
Echocardiogram 04/21/2023-EF 55-60%, mild mitral regurgitation, aortic sclerosis with mild aortic regurgitation, normal pulmonary artery pressures
Spirometry 11/12/22-FEV1 1.89 L-64%, FVC 2.75 L-67%, no significant BD response. Moderate obstruction
PFT 02/10/23-FEV1 2.24-78%, FVC 3.45-85%, 8% BD response, TLC 69%, RV 44%, DLCO 84%. Mild combined obstruction and restriction with mild reduction in diffusing capacity.
6 minute walk test 02/10/23-Ambulated 1050 feet with a desaturation chula of 94%. The maximum heart rate of 101. Maximum dyspnea scale score 0. No supplemental oxygen required.
HST 10/08/2022-AHI-25, desaturation chula 77%, 1.1-minute spent less than 88% saturation-on AutoPap-average 7-10 cm
Subjective Data
-
Date of Service:
Date of Service: April 26, 2024
Chief Complaint: Pulmonary Follow Up and Dyspnea Follow Up
Subjective:
No complaints of worsening shortness of breath, cough, chest pain or abdominal pain
Review of Systems
General: Other (Per HPI)
Objective Data
Data Reviewed
Vital Signs / I&O:
Vital Signs
Temp Pulse Resp BP Pulse Ox
97.5 F 58 18 125/60 97
04/26/24 06:54 04/26/24 09:00 04/26/24 06:54 04/26/24 06:56 04/26/24 06:54
SaO2: 97
Nasal Cannula flow liters per minute: 2
Physical Exam
General: Respiratory Distress (n) and Comfortable
HEENT: Normocephalic, Anicteric and Moist Mucous Membranes
Cardiovascular: Regular Rhythm
Respiratory: Wheeze (n), Crackles (n), Rhonchi (n), Non-Labored Respirations, Accessory Resp Muscle Use (n) and Stridor (n)
GI: Soft, Non Distended and Non Tender
Neurology: Awake, Alert and No Motor Deficits
Skin: Warm, Good Color, Cyanosis (n), Jaundice (n) and Rash (n)
Labs/Micro/Reports
Lab Data
04/26/24 05:41
04/26/24 05:41
Laboratory Results
04/25/24 04/25/24 04/26/24
15:08 21:51 05:41
APTT 67.1 H 86.5 H 93.8 H
--- NOTE | 2024-04-26 10:24 | ITS.CL.CATH ---
Consumer Product Advisor - Catheterization
Cardiac Catheterization
Procedure Report:
LEFT HEART CATHETERIZATION
Date of Procedure: April 26, 2024
Referring: Jamie Hebert
PROCEDURES:
1. Left catheterization, coronary angiogram.
2. Ultrasound-guided access
INDICATION: Concern for NSTEMI
ACCESS: Right radial artery, 6 Portuguese sheath, under ultrasound guidance
HEMODYNAMICS : (mmHg)
AO (s/d) : 163/67
LV (s/d) : 173/8
LVEDP : 33
CORONARY FINDINGS
DOMINANCE: Left
LEFT MAIN: The left main artery is a large-caliber vessel which gives rise to the left anterior descending artery, the ramus intermedius artery and the left circumflex artery. There appears to be about 50% distal stenosis extending into the ostium
of all 3 major branches
LEFT ANTERIOR DESCENDING: The left anterior descending artery is a medium caliber vessel which gives rise to 1 major diagonal branch which is small in caliber as it courses through the anterior interventricular groove towards the apex. There is
eccentric ostial 50 to 60% stenosis.
CIRCUMFLEX: The left circumflex artery is a large-caliber, dominant vessel which gives rise to 2 major obtuse marginal branches, left posterolateral branch and the left posterior descending artery. There is an eccentric ostial 80% stenosis.
RAMUS INTERMEDIUS: The ramus intermedius artery is a medium caliber vessel with ostial 70% stenosis
RIGHT CORONARY ARTERY: The right coronary artery is a small caliber, nondominant vessel with mild diffuse atherosclerotic plaque
SEDATION: 33 minutes of procedural sedation was utilized. An independent medical research tech was present to assist with and help manage the patient's level of consciousness and physiologic status.
RADIATION SUMMARY: Fluoro Time (min): 3.6, Dose (mGy): 666.5, DAP (Gy.cm2) : 39.7
Closure Device: Vascular band over right radial artery, 10 cc of air
CONCLUSIONS
1. Significant coronary artery disease involving 50% distal left main stenosis extending into 80% ostial left circumflex stenosis, 70% ostial ramus intermedius artery stenosis and 50 to 60% ostial LAD stenosis.
2. Significantly elevated LVEDP at 33 mmHg.
RECOMMENDATIONS
1. Heart team discussion in regards to continued medical therapy versus consideration for coronary artery bypass grafting.
2. Continue goal-directed medical therapy for coronary artery disease and aggressive management of cardiovascular risk factors.
3. Discussed with oncology given known history of stage III colon cancer. Post his surgical resection, his colon cancer is thought to be curative and he is currently only on adjuvant therapy to prevent recurrence.
Copy to: Jamie Hebert
Misty Wilcox MD, FACC, [facility]
--- NOTE | 2024-04-26 10:27 | CONSULT.CT ---
Consultation
-
Date/Time Consultation Requested: 04/26/24 1025
Date/Time Consultation Performed: 04/26/24 1030
Requesting Provider: Dr. Wilcox
Performing Provider: Lian Conteh MD
Reason for Consultation: CABG Eval
Patient History
Physicians
Family Physician: Yael Jean MD
Outpatient Neonatal Critical Care Nurse: None
Inpatient Neonatal Critical Care Nurse: Anup
History of Present Illness
78-year-old male with past medical history significant for CKD stage IIIb, recent colon cancer diagnosis on chemotherapy, hepatitis C presented to [facility] on 04/24 with acute onset of chest pain and shortness of breath. He stated the day
prior to admission he was having some shortness of breath on upon exertion that subsided with rest, however, patient then developed left-sided chest pain and epigastric pain at 3 AM. Upon arrival to the ED emergency room patient was found to have
an elevated troponin and was started on a heparin infusion per cardiology. Today the patient was taken to the cardiac Cnc Set Up Operator for a left heart cath in which they found 50% distal left main stenosis extending into a 80% ostial left circumflex
stenosis, 70% ostial ramus stenosis, and 50 to 60% ostial LAD stenosis. CT surgery was consulted for surgical evaluation.
Of note he recently diagnosed with stage III colon cancer s/p surgical resection started his chemotherapy for colon cancer 1 week ago.
Past Medical History
Past Medical History: Other
HTN
HLD
CKD 3B
GERD
anxiety
colon cancer Dx January 2024 on current chemo
hep C with interferon treatment 1994
Former smoker quit 40 years ago
Cardiac murmur
Past Surgical History
Past Surgical History: Other
Port placement 04/19/2024
Foot surgery
Family History
Mother: Cause of (Colon CA)
Father: Cause of
Family Medical History: Aneurysm and CAD
Social History
Alcohol: Occasional (2/week)
Drug: None
Tobacco: Former Smoker (quit 40 years ago)
Personal: ( in memory care)
Living: Alone
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
Allergies
Allergy/AdvReac Type Severity Reaction Status Date / Time
meperidine [From Demerol] Allergy Unknown Verified 04/15/24 17:09
Sulfa (Sulfonamide Allergy Unknown Verified 04/15/24 17:09
Antibiotics)
Home Medications
�Medication �Instructions �Recorded �Confirmed �Type
alprazolam 0.5 mg tablet 0.5 mg PO HS anxiety/sleep 04/19/24 04/24/24 History
amlodipine 5 mg tablet 5 mg PO DAILY Blood Pressure 04/19/24 04/24/24 History
atorvastatin 20 mg tablet 20 mg PO DAILY High Cholesterol 04/19/24 04/24/24 History
benazepril 10 mg tablet 10 mg PO DAILY Blood Pressure 04/19/24 04/24/24 History
polyethylene glycol 3350 17 gram 17 g PO DAILY PRN constipation 04/19/24 04/24/24 History
oral powder packet (Miralax)
Xeloda 3 tab PO DIRECTED Cancer 04/24/24 04/24/24 History
omeprazole 20 mg capsule,delayed 40 mg PO HS Gastrointestinal Issue 04/24/24 04/24/24 History
release
ondansetron 8 mg disintegrating 8 mg PO Q8H PRN nausea/vomiting 04/24/24 04/24/24 History
tablet
prochlorperazine maleate 10 mg 10 mg PO Q6H PRN nausea/vomiting 04/24/24 04/24/24 History
tablet
Review of Systems
-
History Source: Patient
General: Reports No Symptoms
HEENT: Reports No Symptoms
Respiratory: Reports SANDHU and Cough
Cardiac: Reports Chest Pain
Abdomen/GI: Reports Abdominal Pain and Indigestion
: Reports No Symptoms
Musculoskeletal: Reports No Symptoms
Skin: Reports No Symptoms
Neurological: Reports No Symptoms
Vascular: Reports No Symptoms
Physical Exam
Vital Signs
Temp 97.5 F 04/26/24 06:54
Temp route: Oral 04/26/24 06:54
Pulse 58 04/26/24 09:00
Rhythm: Sinus bradycardia 04/26/24 09:00
With- Bundle Branch Block Confi 04/26/24 09:00
Resp Rate 18 04/26/24 06:54
Blood pressure 125/60 04/26/24 06:56
Blood pressure extremity used: Right upper arm 04/26/24 06:54
Position: Lying 04/26/24 06:54
MAP (cuff-Abdiaziz Monitor) 80 04/26/24 06:56
SaO2 97 04/26/24 09:44
Nasal Cannula flow liters per minute 2 04/26/24 09:44
Oxygen Mode of Delivery Room air 04/26/24 09:00
Pulse Ox at Rest 99 04/25/24 13:32
Acceptable pain level during hospitalization? 0 04/24/24 09:49
Can the patient verbally communicate their pain? Yes 04/24/24 20:04
Pain scale ratin 04/26/24 09:00
Actual Weight 90.9 kg 04/25/24 06:00
Body Mass Index (BMI) 29.6 04/25/24 06:00
Sitting- Blood Pressure 120/71 04/25/24 13:32
Sitting- Pulse 61 04/25/24 13:32
Heart rate after activity 64 04/25/24 13:31
Oxygen Saturation with Activity 99 04/25/24 13:31
Labs
04/26/24 05:41
04/26/24 05:41
APTT 93.8 Sec (23.4-35.0) H 04/26/24 05:41
Troponin I 0.234 ng/ml H* 04/26/24 05:41
Sch-Z-Bmguisraeqj Pept 186 pg/ml 04/24/24 10:04
Urinalysis
Urine Color Straw 04/24/24 12:12
Urine Clarity Clear (Clear) 04/24/24 12:12
Urine pH 6.0 (5.0-9.0) 04/24/24 12:12
Ur Specific [place] 1.010 (<1.030) 04/24/24 12:12
Urine Ketones Negative (Negative) 04/24/24 12:12
Ur Occult Blood Reflex Negative (Negative) 04/24/24 12:12
Urine Bilirubin Negative (Negative) 04/24/24 12:12
Leukocyte Esterase Rfl Negative (Negative) 04/24/24 12:12
Urine Glucose Negative (Negative) 04/24/24 12:12
Urine Albumin (Reflex) Negative (Neg - Trace) 04/24/24 12:12
Exam
General: Well Developed
HEENT: Normocephalic
Respiratory: Clear
Cardiac: S1/S2
GI: Soft and Flat
Rectal: Deferred by Provider
Skin: Warm
Neuro: AO x 3
Lymph: No Lymphadenopathy
Psych: Calm
Assessment / Plan
-
78-year-old male with past medical history listed above presented to [facility] with sudden onset of chest pain and shortness of breath. He was found to have multivessel disease and CT surgery was consulted for surgical evaluation.
#CAD
-Patient's case will be discussed with attending physician. Further details regarding surgical timing intervention will be determined after attending physicians full evaluation
-Routine preoperative cardiothoracic surgery orders will be initiated.
-STS risk stratification score will be calculated after preoperative testing is complete
-Continue nitroglycerin and heparin gtt per cardiology
[2024-04-26] MEDS: NSS 1000 IV (10:36)
--- NOTE | 2024-04-26 11:28 | W.PN.HOSP.TC ---
Today's Communication/Plan
-
await CTS/Cards input
Assessment / Plan
Assessment / Plan
Assessment:
Acute hypoxic respiratory insufficiency - due to pneumonitis. Oxygenation improved, now on RA. Reportedly was 89% on room air prior to arrival and briefly required 2L NC.
Acute pneumonitis on CT - Suspect inflammatory component more so than infectious. Other differential is volume overloaded. Unclear if related to recent chemotherapy versus other causes. Hold further antibiotics. Appreciate pulm input.
- CT chest shows increased reticular and ground-glass opacities within both lungs. Bronchial wall thickening mainly within the lower lungs suggesting bronchitis.
FAIZA
- possibly due to volume depletion. Creatinine 1.3, BUN 25. Prerenal azotemia. Hold LAURA
Troponin elevation with chest pain
- EKG: shows left bundle branch block with sinus rhythm
- trop peaked at .688
- Lopressor BID
- LDL 61; statin
- LHC: Significant coronary artery disease involving 50% distal left main stenosis extending into 80% ostial left circumflex stenosis, 70% ostial ramus intermedius artery stenosis and 50 to 60% ostial LAD stenosis. Significantly elevated LVEDP at 33
mmHg.
- Echo: EF 65%, mild AR, mild , trace TR
- DCA cards and CT surgery following
Essential HTN
- continue Norvasc 5mg daily
Colon cancer - T3. Just started chemotherapy on with 1 dose of oxaliplatin and oral Xeloda. Has a port in place. Oncology following.
ALMA -on CPAP at bedtime.
HCV
Code: DNR
Anticipated Discharge: > 48 hours
Subjective/Interval History
-
Date of Service: April 26, 2024
resting comfortably, post cath
Objective Data
-
Labs:
Laboratory Results
04/26/24
05:41
WBC 6.3
Hgb 10.3 L
Hct 30.9 L
Plt Count 213
APTT 93.8 H
Sodium 138
Potassium 4.4
Chloride 106
Carbon Dioxide 24
BUN 22 H
Creatinine 1.3
Glucose 101 H
Calcium 8.9
Vital Signs:
Vital Signs
Temp Pulse Resp BP Pulse Ox
97.8 F 58 16 138/65 100
04/26/24 11:11 04/26/24 11:11 04/26/24 11:11 04/26/24 10:45 04/26/24 11:11
Physical Exam
-
General: No Apparent Distress
HEENT: Normocephalic and Atraumatic
Respiratory: Negative Wheezes
Cardiac: Regular Rhythm and S1/S2
GI: Soft
Musculoskeletal: No Edema
Neuro: AO x 3
Hematologic / Lymphatic: No Lymphadenopathy
Psych: Calm
Data Reviewed
-
Total Time Spent with Patient (in minutes): 47
Labs: Labs Reviewed by me
--- NOTE | 2024-04-26 11:57 | PTCARENOTE ---
Pt denied any chest pain this am. However, when pt was repositioned himself in bed prior to going to the terrazzo laborer, pt c/o left breast pain. Pt stated that he has constant left chest pain rated 6 out of 10. Pt also c/o intermittent 'stabbing' left
sided chest pain w/ certain movements. VSS. MD's aware. Meds as ordered. Will monitor.
[2024-04-26] MEDS: NORVASC 5 MG PO (12:40)
[2024-04-26] MEDS: LOPRESSOR 25 MG PO ×2 (12:40→19:53)
[2024-04-26] MEDS: LIPITOR PO (12:40)
[2024-04-26] MEDS: MIRALAX 17 GRAMS PO (12:45)
--- NOTE | 2024-04-26 13:53 | PN.CDI ---
CDI
- -
CDI:
Physician Documentation Request
Admit Date: 04/24/24 13:29
Dear Doctor Dean,
Please review the following and provide your response in the progress notes.
Due to conflicting documentation, please clarify the documentation related to renal status...
Clinical Indicators:
H+P, 6/2
#CKD 3B
#Creat 1.4 appears near baseline
PN, 6/3
#FAIZA
#...- possibly due to volume depletion. Creatinine 1.4, BUN 25.
#...Prerenal azotemia. IV fluids. Hold LAURA inhibitor.
Laboratory Tests
04/24/24 04/25/24 04/26/24
10:04 02:03 05:41
Creatinine 1.4 H 1.3 1.3
eGFR 51.13 55.88 55.88
Bases on the above information and the clinical indicators in the record, please clarify in the Progress Notes which of the following most accurately represents the patient's renal status:
Chronic stable CKD 3b
Acute kidney injury on baseline CKD 3b
Other(please specify)
Criteria for FAIZA*
1 Increase in serum creatinine by > or = to 0.3 mg/dL (> or = to 26.5 micromol/L) within 48 hours, OR
2 Increase in serum creatinine to > or = to 1.5 times baseline, which is known or presumed to have occurred within 7 days, OR
3 Urine volume < 0.5 nL/kg/hour for six hours
Stages of Chronic Kidney Disease*
Level Description GFR
G1 Normal or High >90
G2 Mildly decreased 60-89
G3a Mildly to moderately decreased 45-59
G3b Moderately to severely decreased 30-44
G4 Severely decreased 15-29
G5 Kidney failure <15
Use of terms such as suspected, likely, concern for, or probable (associated with a specific diagnosis that is being evaluated, monitored, or treated as if it exists) are acceptable and can be coded in the inpatient setting, when documented at the
time of discharge.
Thank you,
Cha Adrian RN BSN CCDS
CDI Specialist
please contact via tiger text
Please use your independent medical judgment in providing your response.
*Source: Kidney Disease: Improving Global Outcomes (KDIGO) 2012
--- NOTE | 2024-04-26 14:00 | PN.CDI ---
CDI
- -
CDI:
Physician Documentation Request
Admit Date: 04/24/24 13:29
Dear Doctor Dean,
Please review the following and provide your response in the progress notes.
Clinical Indicators:
H+P, 04/24
#Nonischemic myocardial injury
#New LBBB�since 1999 and
#-Troponin 0.068 will trend
Cardiology consult, 04/24
#Chest pain/non-STEMI
Cardiology PN, 04/25
#Elevated Troponin, possible NSTEMI, Troponin up to 0.68 and trending
Laboratory Tests
04/24/24 04/24/24 04/24/24
10:04 14:04 18:21
Troponin I 0.068 H* 0.508 H* D 0.688 H* D
04/25/24 04/26/24
15:08 05:41
Troponin I 0.284 H* 0.234 H*
Please clarify the etiology of the elevated troponins:
Non Ischemic Myocardial injury
NSTEMI
Other(please specify)
Extent of NM
STEMI - indicate the location and vessel involved
NSTEMI - subendocardial, nontransmural
Use of terms such as suspected, likely, concern for, or probable (associated with a specific diagnosis that is being evaluated, monitored, or treated as if it exists) are acceptable and can be coded in the inpatient setting, when documented at the
time of discharge.
Thank you,
Cha Adrian RN BSN CCDS
CDI Specialist
please contact via tiger text
Please use your independent medical judgment in providing your response.
[2024-04-26] MEDS: PROTONIX 40 MG PO (22:21)
[2024-04-26] MEDS: XANAX 0.5 MG PO (22:21)
--- NOTE | 2024-04-26 22:32 | PTCARENOTE ---
Pt rec'd at change of shift sitting on side of bed. Pt denies sob or CP. right radial site with DDI,good radial pulse. Sinus with + murmur noted. Pt oob in hallway around 9pm ambulating freq around both units. At one point pt was speed walking down
hallway. Pt instructed to slow down. Pt reports experiencing no complaints while ambulating.
[2024-04-27] VITALS (7 sets, daily range): BP systolic 112–154; BP diastolic 49–72
--- NOTE | 2024-04-27 03:27 | PTCARENOTE ---
Pt oob to void at this time. Does not wish to go back on cpap. am vs taken and labs drawn
[2024-04-27 03:58] LABS: % Basophils 0.8 % (0-2); % Eosinophils 4.2 % (0-6); % Immature Granulocytes 0.3 % (0-0.5); % Lymphocytes 22.5 % (20.5-51.1); % Monocytes 7.7 % (1.7-9.3); % Neutrophils 64.5 % (42.2-75.2); Absolute Basophils 0.1 10^3/uL (0-0.2); Absolute Eosinophils 0.3 10^3/uL (0-0.7); Absolute Lymphocytes 1.7 10^3/uL (1.2-3.4); Absolute Monocytes 0.6 10^3/uL (0.1-0.6); Hematocrit 30.8 % (39.0-52.0); Hemoglobin 10.1 g/dL (13.0-18.0); Mean Corp Hgb Conc. 32.8 g/dL (33.0-37.0); Mean Corpuscular Hgb 29.1 pg (27.0-31.0); Mean Corpuscular Volume 88.8 fL (80.0-94.0); Mean Platelet Volume 10.3 fL (7.4-10.4); Nucleated Red Blood Cells % 0 % (-); Platelet Count 237 10^3/uL (130-400); Red Blood Cell Count 3.47 10^6/uL (4.70-6.10); Red Cell Dist. Width 12.8 % (11.5-14.5); White Blood Cell Count 7.7 10^3/uL (4.8-10.8)
[2024-04-27 04:17] LABS: Blood Urea Nitrogen 23 mg/dl (9-20); Carbon Dioxide 25 mmol/L (22-30); Chloride 106 mmol/L (98-107); Estimated Creatinine Clearance 46 ml/min; Glucose 103 mg/dl (70-99); Potassium 4.5 mmol/L (3.5-5.1); Sodium 137 mmol/L (135-145); eGFR 55.88
--- NOTE | 2024-04-27 08:33 | W.PN.HOSP.TC ---
Addendum entered and electronically signed by Felisa Moran MD 04/27/24 13:20:
Febrile this afternoon
CXR, procal and cultures obtained
start empiric CAP Coverage, d/w Pulmonary
Original Note:
Today's Communication/Plan
-
await CTS evaluation for medical therapy vs bypass option
follow cards recs
follow pulm recs
Assessment / Plan
Assessment / Plan
Assessment:
Acute hypoxic respiratory insufficiency - due to pneumonitis vs volume overload. Oxygenation improved, now on RA. Reportedly was 89% on room air prior to arrival and briefly required 2L NC.
Acute pneumonitis vs volume overload on CT
- CT read: increased reticular and ground-glass opacities within both lungs. Bronchial wall thickening mainly within the lower lungs suggesting bronchitis.
- d/w pulm/onc, unlikely pneumonitis at this point, only started chemo x 1 week ago
- volume overload possible in setting of NSTEMI
- continue to monitor, probably repeat imaging outpatient.
FAIZA on CKD stage 3b
- possibly due to volume depletion. Creatinine 1.3, BUN 25. Prerenal azotemia. Hold LAURA
NSTEMI
- EKG: shows left bundle branch block with sinus rhythm
- trop peaked at .688
- Lopressor BID
- LDL 61; statin
- LHC: Significant coronary artery disease involving 50% distal left main stenosis extending into 80% ostial left circumflex stenosis, 70% ostial ramus intermedius artery stenosis and 50 to 60% ostial LAD stenosis. Significantly elevated LVEDP at 33
mmHg.
- Echo: EF 65%, mild AR, mild , trace TR
- DCA cards and CT surgery following; may be indicated for bypass
Essential HTN
- continue Norvasc 5mg daily
Colon cancer - T3. Just started chemotherapy on with 1 dose of oxaliplatin and oral Xeloda. Has a port in place. Oncology following.
ALMA -on CPAP at bedtime.
HCV
Code: DNR
Anticipated Discharge: 24 - 48 hours
Subjective/Interval History
-
Date of Service: April 27, 2024
no cp or sob
Objective Data
-
Labs:
Laboratory Results
04/27/24 04/27/24
03:20 05:00
WBC 7.7
Hgb 10.1 L
Hct 30.8 L
Plt Count 237
APTT Pending
Sodium 137
Potassium 4.5
Chloride 106
Carbon Dioxide 25
BUN 23 H
Creatinine 1.3
Glucose 103 H
Calcium 9.0
Vital Signs:
Vital Signs
Temp Pulse Resp BP Pulse Ox
97.7 F 56 16 112/58 100
04/27/24 07:17 04/27/24 07:17 04/27/24 07:17 04/27/24 03:21 04/27/24 07:17
I&O
04/26/24 04/27/24 04/28/24
06:59 06:59 06:59
Intake Total 208 / 208
Balance 208 / 208
Physical Exam
-
General: No Apparent Distress
HEENT: Normocephalic and Atraumatic
Respiratory: Negative Wheezes
Cardiac: Regular Rhythm and S1/S2
GI: Soft
Genito-urinary: No Costovertebral Tender
Musculoskeletal: No Edema
Neuro: AO x 3
Hematologic / Lymphatic: No Lymphadenopathy
Psych: Calm
Data Reviewed
-
Total Time Spent with Patient (in minutes): 42
Labs: Labs Reviewed by me
[2024-04-27] MEDS: MIRALAX 17 GRAMS PO (09:28)
[2024-04-27] MEDS: NORVASC 5 MG PO (09:32)
[2024-04-27] MEDS: LOPRESSOR 25 MG PO ×2 (09:33→20:38)
[2024-04-27] MEDS: LIPITOR 80 MG PO (09:33)
[2024-04-27] MEDS: LOW STRENGTH ASPIRIN 81 MG PO (09:33)
--- NOTE | 2024-04-27 10:06 | W.PN.PUL.V3 ---
Today's Communication / Plan
-
Diuresis as tolerated
Bypass surgery versus medical therapy
Follow-up radiographically after euvolemic
Assessment
-
78-year-old male with a history of hypertension, hyperlipidemia, obstructive sleep apnea with recent diagnosis of colon cancer undergoing immunotherapy/chemotherapy and pulmonary consulted for abnormal CT chest 04/25/2024.
Atypical chest pain and shortness of breath
Mild anemia-hemoglobin 10.6-normocytic
Elevated troponin
Conditions present prior to admission:
Hypertension.
Hyperlipidemia.
Chronic kidney disease stage IIIb.
GERD.
Anxiety/depression
Colon cancer diagnosed January 2024-status post resection, 6 of 40 lymph nodes positive for on immunotherapy/chemotherapy-oxaliplatin and Xeloda.
Hepatitis C/interferon treatment 1994.
Obstructive sleep [id number], desaturation chula 77%-NmoeIvu-5-20 cm
Periodic limb movements of sleep
COPD/restrictive lung disease
Decreased diffusing capacity
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
Pulmonary nodule-4 mm left lower lobe stable 2014 through 2021
Elevated hemidiaphragm
Chronic cough
Postnasal drip
Vasomotor rhinitis
History of shingles
Hiatal hernia
Bilateral cataract
Postnasal drip
Shoulder surgery 10 years ago
Plan
Mild respiratory decompensation with abnormal CT chest, noted aortic regurgitation, aortic sclerosis, mild mitral regurgitation, suspected fluid overload and possible pneumonitis
Multiple radiographs as well as multiple CTs chest summarized below
Recommended treating pneumonia as well as fluid overload with radiographic follow-up
Oxaliplatin and Xeloda recently started-can cause interstitial pneumonitis, but, he has only received 1 dose 1 week ago and unless hypersensitivity reaction less likely immunotherapy/chemotherapy induced lung injury
Hold oxaliplatin and Xeloda for now
Oncology following-correspondence reviewed
Supplemental oxygen if needed-currently on room air and 100%
Nebulizers if needed-currently not bronchospastic
The troponin was trended
Cardiology evaluation noted-correspondence reviewed
Cardiac catheterization 04/26/2024-significant CAD-50% distal left main extending into 80% ostial left circumflex, 70% ostial intermedius and 50 to 60% ostial LAD stenosis and elevated left ventricular end-diastolic pressure at 33
Discussions in regards to medical therapy versus bypass grafting
Echocardiogram summarized below
Diuresis as tolerated
Monitor renal function, electrolytes, intake/output, lower extremity edema and weight
Replace electrolytes as needed
After adequate diuresis repeat imaging-if interstitial pattern resolves then majority was likely fluid related and not immuno/chemotherapy induced
proBNP on 04/24/2024 was not significantly elevated
Follow hemoglobin
Transfuse if needed
DVT prophylaxis-on heparin
GI prophylaxis-on pantoprazole
Nutrition
Early mobilization
Reviewed with nursing as well as primary team
Last seen by Dr. Mccabe/-had been recommended follow-up in 1 year for CPAP compliance-will see sooner after this hospitalization
Diagnostic data:
Chest x-ray 01/15/2022-new mild to moderate elevation right hemidiaphragm
Chest x-ray 04/24/2024-increased reticular nodular markings within both lung, likely representing interstitial type pneumonia
CT chest 01/23/22-cough and elevated diaphragm, findings-Mildly elevated right hemidiaphragm, unchanged prior chest x-ray 01/15/22, no significant change compared to abdomen. CT 01/04/15, mild linear opacification each lung base suggesting subsegmental
atelectasis, right greater than left, no evidence for lobar pneumonia, emphysema or interstitial fibrosis, small lung nodule at the left base, 4 mm, unchanged compared to prior abdominal CT dating and likely benign, moderate coronary artery
calcifications, mild aortic valvular calcification.
CT chest abdomen pelvis 01/01/2024-focal wall thickening and luminal narrowing superior aspect of ascending colon, no pathological mesenteric lymphadenopathy, small groundglass nodule left lower lobe measuring 4 mm, linear opacification at the Base
Suggesting Scarring or Subsegmental Atelectasis, No Lobar Airspace Consolidation, Pleural Effusion or Pneumothorax
CT Chest 04/24/2024-Negative for Pulm Embolism, Increased Reticular and Groundglass Opacifications within Both Lungs Likely Representing Pneumonitis, Pulmonary Edema Could Be Considered on Differential but Less Likely, Bronchial Wall Thickening May
within the Lower Lungs Suggesting Bronchitis
PET Scan 04/04/2024-No PET/CT Evidence for Hypermetabolic Metastatic Disease
Echocardiogram 04/21/2023-EF 55-60%, mild mitral regurgitation, aortic sclerosis with mild aortic regurgitation, normal pulmonary artery pressures
Spirometry 11/12/22-FEV1 1.89 L-64%, FVC 2.75 L-67%, no significant BD response. Moderate obstruction
PFT 02/10/23-FEV1 2.24-78%, FVC 3.45-85%, 8% BD response, TLC 69%, RV 44%, DLCO 84%. Mild combined obstruction and restriction with mild reduction in diffusing capacity.
6 minute walk test 02/10/23-Ambulated 1050 feet with a desaturation chula of 94%. The maximum heart rate of 101. Maximum dyspnea scale score 0. No supplemental oxygen required.
HST 10/08/2022-AHI-25, desaturation chula 77%, 1.1-minute spent less than 88% saturation-on AutoPap-average 7-10 cm
Subjective Data
-
Date of Service:
Date of Service: April 27, 2024
Chief Complaint: Pulmonary Follow Up and Dyspnea Follow Up
Subjective:
Denies any shortness of breath, chest pain or abdominal pain
Review of Systems
General: Other (Per HPI)
Objective Data
Data Reviewed
Vital Signs / I&O:
Vital Signs
Temp Pulse Resp BP Pulse Ox
97.7 F 54 16 140/64 100
04/27/24 07:17 04/27/24 09:32 04/27/24 07:17 04/27/24 09:32 04/27/24 07:17
Intake and Output
04/26/24 04/27/24 04/28/24
06:59 06:59 06:59
Intake Total
Balance
SaO2: 100
Nasal Cannula flow liters per minute: 2
Physical Exam
General: Respiratory Distress (n) and Comfortable
HEENT: Normocephalic, Anicteric and Moist Mucous Membranes
Cardiovascular: Regular Rhythm
Respiratory: Wheeze (n), Crackles (n), Rhonchi (n), Non-Labored Respirations, Accessory Resp Muscle Use (n) and Stridor (n)
GI: Soft, Non Distended and Non Tender
Neurology: Awake, Alert and No Motor Deficits
Skin: Warm, Good Color, Cyanosis (n), Jaundice (n) and Rash (n)
Labs/Micro/Reports
Lab Data
04/27/24 03:20
04/27/24 03:20
--- NOTE | 2024-04-27 11:59 | W.PN.CT ---
Today's Communication / Plan
-
Patient seen with Dr. Conteh today.
- Continue diureses
- repeat imaging after fluid removal per pulmonary recommendations
- Will continue to follow to evaluate for surgical optimization and surgical timing
- Will ultrasound liver to assess for cirrhosis; follow liver panel labs
- Will consult GI
- pt would prefer to go home and return electively for Surgery
Subjective
-
Date of Service: April 27, 2024
Objective Data
-
Lab Results
04/27/24 03:20
04/27/24 03:20
APTT 93.8 Sec (23.4-35.0) H 04/26/24 05:41
Vital Signs
Vital Signs
Temp Pulse Resp BP Pulse Ox
98.2 F 56 16 140/64 100
04/27/24 11:34 04/27/24 11:34 04/27/24 11:34 04/27/24 09:32 04/27/24 11:[address]
CT Intake/Output/Weight
04/26/24 04/27/24 04/27/24
18:59 06:59 18:59
Intake Total 208 / 208
Balance 208 / 208
SaO2: 100
--- NOTE | 2024-04-27 12:09 | W.PN.CARDCBS ---
Addendum entered and electronically signed by Misty Wilcox MD 04/27/24 18:10:
I saw and examined the patient.
The City Dispatcher's note was reviewed and I agree with the note.
Comment: Patient's active fever of 102 today with no other localizing symptoms so far. Workup underway.
Vital signs and lab work reviewed. Exam notable for a well-appearing gentleman in no acute distress, normal S1 and S2, no murmurs, rubs or gallops, abdomen is soft, nontender, nondistended, decreased breath sounds at bases, warm extremities. Cath
site without evidence of hematoma or bruit.
Recommendations:
1. Agree with IV diuresis in the setting of a significantly elevated LVEDP.
2. Workup for fever per primary team.
3. Ongoing discussions with patient in regards to best management of significant coronary artery disease: Continued medical therapy versus medicine occasions and CABG. Multiple discussions have been had with the patient however he is unsure of the
approach he would like to pursue.
4. Diagnosis of cirrhosis has been brought up, appreciate GI input in regards to this to further help her stratify.
Misty Wilcox MD, [facility], [facility]
Original Note:
Today's Communication / Plan
-
Try a dose of Lasix 40 mg IV x1
Recheck pro-BNP
Cirrhosis findings at least as far back as 2015, no record of GI consult in [facility] or [facility] that I can see
Impression / Plan
-
PCP: Dr. Jean
Cardiology: None prior to admission, seen initially by Dr. Hebert
Impression:
Chest pain
Elevated Troponin, possible NSTEMI, Troponin up to 0.688
CAD with 50% distal LM stenosis extending into 80% ostial left circumflex stenosis, 70% ostial Ramus stenosis and 50 to 60% ostial LAD stenosis by cath 04/26/24
Colon cancer status post chemotherapy treatment with oxaliplatin and Xeloda 04/21
Hypertension
Hyperlipidemia
New left bundle branch block
CKD 3
GERD
History hepatitis C
Possible acute HFpEF
Echo 04/21/23: EF 55 to 60%, mild LVH, mild MR, aortic sclerosis with mild AI
Echo 04/25/24: EF 65 to 70%, mild concentric LVH, mild aortic regurgitation, mild AAS mean gradient 18 mmHg and CARLOS ALBERTO 1.3 cm sq
Plan:
-Chest pain on admission and Troponin peaked at 0.688. Cath revealed distal LM, ostial Circ, ostial Ramus and ostial LAD. No recurrence of chest pain. EF stable at 65-70%.
-CT surgery correspondence reviewed and patient was offered CABG, but he is not ready to commit in part because he otherwise feels well.
-Heparin gtt ran for 48 hours and has now stopped.
-Medical therapy includes addition of Lopressor 25 mg BID and aspirin 81 mg daily.
-Outpatient dose of benazepril is on hold due to CKD and plans for cardiac cath
-Outpatient dose of amlodipine 5 mg daily continued
-LDL 61, outpatient dose of atorvastatin increased to 80 mg daily
-Abdominal u/s 05/08/23 showed cirrhosis and looking back in [facility] he had an u/s in 2016 that showed cirrhosis as well. No previous inpatient or outpatient GI consultation seen in [facility] or [facility].
-Another concern is possible pneumonitis. Pulm note reviewed from 04/27/24 and there is concern for CHF as the cause of abnormal radiographic findings. Recheck pro-BNP and will try a dose of Lasix 40 mg IV x1 now.
HPI: 78-year-old male with past medical history of hypertension, hyperlipidemia, colon cancer status post treatment 3 days ago with oxaliplatin and daily Xeloda, presents with left-sided chest pains and shortness of breath. The pain felt like an
ache or pressure and started at 3 AM this morning and then improved. It then again reoccurred and he presented to the emergency room. He had some mild shortness of breath. The pain seemed worse with deep breaths or twisting or pulling. He has
never had this pain before. CT scan of the chest was performed which revealed no pulmonary embolism. He denies any palpitations, dizziness, or syncope. He denies any orthopnea, PND, or edema. He has no bleeding. He has no fevers or chills. He
has no coughing or wheezing. He still is having some mild left-sided chest pain. He was also found to have a new left bundle branch block.
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
Subjective
Date of Service: April 27, 2024
No chest pain
Objective
Labs:
04/27/24 03:20
04/27/24 03:20
Labs
Hgb 10.1 g/dL (13.0-18.0) L 04/27/24 03:20
Hct 30.8 % (39.0-52.0) L 04/27/24 03:20
Plt Count 237 10^3/uL (130-400) 04/27/24 03:20
APTT 93.8 Sec (23.4-35.0) H 04/26/24 05:41
Sodium 137 mmol/L (135-145) 04/27/24 03:20
Potassium 4.5 mmol/L (3.5-5.1) 04/27/24 03:20
BUN 23 mg/dl (9-20) H 04/27/24 03:20
Creatinine 1.3 mg/dL (0.7-1.3) 04/27/24 03:20
Glucose 103 mg/dl (70-99) H 04/27/24 03:20
Troponins
04/24/24 04/24/24 04/25/24
14:04 18:21 15:08
Troponin I 0.508 H* D 0.688 H* D 0.284 H*
04/26/24
05:41
Troponin I 0.234 H*
Vital Signs and I&O:
Vital Signs
Temp Pulse Resp BP Pulse Ox
98.2 F 56 16 140/64 100
04/27/24 11:34 04/27/24 11:34 04/27/24 11:34 04/27/24 09:32 04/27/24 12:01
Vital Signs
Temp Pulse Resp BP Pulse Ox
98.2 F 56 16 140/64 100
04/27/24 11:34 04/27/24 11:34 04/27/24 11:34 04/27/24 09:32 04/27/24 12:01
Intake & Output
04/25/24 04/26/24 04/27/24 04/28/24
06:59 06:59 06:59 06:59
Intake Total 208 / 208
Balance 208 / 208
Physical Exam
Physical Exam
GEN: NAD. AAOx3
HEENT: MMM
LUNGS: No audible wheeze
CV: SR with LBBB on tele
ABD: ND
EXT: No edema B/L
NEURO: Gross non-focal
SKIN: No rash
--- NOTE | 2024-04-27 12:17 | W.PN.UPDATE ---
Addendum entered and electronically signed by MIRELLA Payton 04/27/24 14:10:
Patient developed a fever of up to 102. Surgery is post-poned. Patient will need an infectious work up.
Original Note:
Update Note
Progress Note Update
pt seen and examined
Cabg discussed in detail
Pt not convinced 'yet' to consider cabg now
I have offered Thursday am as earliest for cabg, he is considering
???cirrhosis history needs to be cleared up
???pneumonitis needs to be clarified
[2024-04-27] MEDS: TYLENOL 650 MG PO ×2 (12:50→21:24)
--- NOTE | 2024-04-27 12:57 | PTCARENOTE ---
I'm covering for Chantal while she is at lunch. The patient rang the call coughlin. He was shivering vigorously. Temperature was 102. I medicated him with Tylenol as ordered and covered him with warm blankets. I also notified Dr. Moran.
--- NOTE | 2024-04-27 13:15 | PTCARENOTE ---
The patient became nauseated while speaking with Pat, the CT PA. He then began to vomit a small amount clear liquid. I notified Dr. Moran for an IV antiemetic. IV Compazine was ordered.
--- NOTE | 2024-04-27 13:43 | CM ---
Reviewed chart. Met with Mr. Bhatti to review discharge plans. He has to make a decision regarding heart surgery. Awaiting his decision. Prior to admission he resides alone in a two story home with two steps to enter. He has a first floor living
arrangement. His spouse is in [facility] memory impaired assisted living. Prior to admission he was independent with ambulation and adls. He has a CPAP Machine at home. He states he has two sons who reside locally. He has a
prescription plan and uses [facility]. Medical work-up in progress. The discharge plan is to return home when medically stable.
--- NOTE | 2024-04-27 13:52 | PTCARENOTE ---
Pt c/o shivering. Pt nauseous and spit about 15 cc of clear, thin liquid. Pt's PO temperature was 102. Pt's HR was in the 80's. MD notified. Orders noted. Blood cx and labs sent. Tylenol and warm blanket given. Will send urine cx when
available. Antibiotics to be given when cx's obtained. Pt refused antiemetic. Pt said that his nausea passed. Pt continues to c/o 'fleeting left breast discomfort'. He rates this discomfort as an occasional 1-2 out of 10. Will monitor.
[2024-04-27 14:10] LABS: Procalcitonin < 0.05 ng/ml (0.0-0.25)
[2024-04-27 15:30] LABS: Urine Albumin Negative (Neg - Trace); Urine Bilirubin Negative (Negative); Urine Character Clear (Clear); Urine Color Yellow; Urine Glucose Negative (Negative); Urine Ketone Negative (Negative); Urine Leukocyte 1+ (Negative); Urine Nitrite Negative (Negative); Urine Occult Blood Negative (Negative); Urine Urobilinogen Negative (Neg - 1+)
[2024-04-27 15:44] LABS: Urine Bacteria Moderate (Negative); Urine Red Blood Cell 0-2 /HPF (0-2); Urine Squamous Cell 16-20 /LPF (Few); Urine Yeast Many (Negative)
[2024-04-27] MEDS: ZITHROMAX 500 MG PO (15:44)
[2024-04-27] MEDS: ROCEPHIN 1000 MG IV (15:45)
[2024-04-27] MEDS: STERILE WATER FOR INJECTION 10 ML IV (15:45)
[2024-04-27] MEDS: LASIX 40 MG IV (16:00)
[2024-04-27 16:36] LABS: NT-proBNP 516 pg/ml
--- NOTE | 2024-04-27 16:57 | CON.GI ---
Addendum entered and electronically signed by Quentin Mcdonough MD 04/27/24 20:44:
d/w patient vocal JOLIE surgical risk for cardiac surgery in light of cirrhosis which is less than 5 % in terms of decompensation and mortality (90 and 30 days).
He can f/u with his primary GI as an outpatient
will sign off call with questions
Addendum entered and electronically signed by Quentin Mcdonough MD 04/27/24 20:42:
I saw and examined the patient.
The CLIENT SERVICES ADMINISTRATOR or PA's note was reviewed and I agree with the note.
Comment:
Pt is a 78 y/o man with a hx of colon cancer, cirrhosis which is compensated with no known varices or ascites followed by Dr. Reis [facility] for many years. He was found to have significant CAD and in need of a CABG. Consult for hx of
cirrhosis
aao x3
no abdominal tenderness or ascites
anicteric
CT done in recent past with no sign of cirrhosis or portal htn.
plan:
d/w pt the surgical risk for cardiac surgery in the face of compensated cirrhosis with less than a 3% 90 day decompensation and lower risk of . He is not sure he wants surgery for other reasons
f/u with primary GI for maintenance screening f/u
Original Note:
Consultation
-
Date/Time Consultation Requested: 04/27/24 1231
Date/Time Consultation Performed: 04/27/24 1600
Requesting Provider: MIRELLA Payton
Performing Provider: Dr. Mcdonough/MIRELLA Monique
Reason for Consultation: cirrhosis/risk statification for possible surgery
Medical History
Chief Complaint / HPI
Chief Complaint: Left sided discomfort and SOB
History of Present Illness:
78-year-old male with past medical history of hypertension, hyperlipidemia, chronic kidney disease, GERD, anxiety, history of hepatitis C treated. He was diagnosed with colon cancer for stage IIIb colon cancer of the hepatic flexure T3 N2 M0 status
post extended right hemicolectomy on 02/05/2024 at [facility]. The patient recently had a right chest wall port placed on 04/19/2024. Patient recently started oxaliplatin and Xeloda treatment with Dr. Rodriguez on 04/21/2024. He
presents to the emergency room after waking up on Thursday a.m. with left-sided discomfort as well as shortness of breath. He called the ambulance and was brought to the hospital. The patient was found to have an elevated troponin. He was started
on a heparin infusion. He went to the cardiac [facility] for left heart catheterization where they found a 50% distal left main stenosis extending into an 80% ostial left circumflex stenosis, 70% ostial ramus stenosis and a 50 to 60% ostial LAD
stenosis. We are asked to evaluate for risk stratification for possible cardiac surgery given patient's history of cirrhosis. The patients hepatitis C [place] [facility] [place] [address] [facility] [facility] with sustained viral
response, compensated cirrhosis since at least [address] of the abdomen and pelvis followed by Dr. Reis with imaging every 6 months and alpha-fetoprotein which has been normal. Patient undergoes routine variceal surveillance every 2
years. Patient states last EGD was performed and showed only portal hypertension without any signs of bleeding. The patient has never had an upper GI bleed. He has no history of varices. He has no history of ascites or encephalopathy. He has
never been placed on diuretics. His next follow-up appoint with Dr. Reis is in June. 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 I was also able to review his prior PCP notes as well.
-Patient did spike a fever of 102.1 this morning. He also had chills with 15 cc of clear spit up. He was given Tylenol and his temperature is down to 99.0. He denies any GI complaints otherwise.
Past Medical History
Past Medical History: Cancer (colon cancer), GERD, HTN, Hypercholesterolemia and Other (anxiety, Hepatitis C s/p Tx with Interferon A with SVR in 1994, cirrhosis, CKD 3, )
Past Surgical History: Orthopedic (foot surgery) and Other (right chest wall port 04/19/2024, extended right hemicolectomy 02/05/24, portal hypertensive gastropathy on EGD)
Social History
Tobacco: Former Smoker
Alcohol: Other (1 glass wine a week)
Drug: None
Personal:
Employment: Retired
Family History
Family History: Other (Mother hx colon cancer, )
Allergies / Home Medications
Allergy/AdvReac Type Severity Reaction Status Date / Time
meperidine [From Demerol] Allergy Unknown Verified 04/15/24 17:09
Sulfa (Sulfonamide Allergy Unknown Verified 04/15/24 17:09
Antibiotics)
�Medication �Instructions �Recorded
alprazolam 0.5 mg tablet 0.5 mg PO HS anxiety/sleep 04/19/24
amlodipine 5 mg tablet 5 mg PO DAILY Blood Pressure 04/19/24
atorvastatin 20 mg tablet 20 mg PO DAILY High Cholesterol 04/19/24
benazepril 10 mg tablet 10 mg PO DAILY Blood Pressure 04/19/24
polyethylene glycol 3350 17 gram 17 g PO DAILY PRN constipation 04/19/24
oral powder packet (Miralax)
Xeloda 3 tab PO DIRECTED Cancer 04/24/24
omeprazole 20 mg capsule,delayed 40 mg PO HS Gastrointestinal Issue 04/24/24
release
ondansetron 8 mg disintegrating 8 mg PO Q8H PRN nausea/vomiting 04/24/24
tablet
prochlorperazine maleate 10 mg 10 mg PO Q6H PRN nausea/vomiting 04/24/24
tablet
Review of Systems
-
All other systems: A 12 pt ROS was Negative except as stated above in HPI
Vital Signs
Temp Pulse Resp BP Pulse Ox
99.5 F 76 18 123/49 95
04/27/24 16:21 04/27/24 16:00 04/27/24 16:21 04/27/24 16:00 04/27/24 16:21
Physical Exam
Exam
General: No Apparent Distress
HEENT: Anicteric
Respiratory: Clear
Cardiac: Regular Rhythm and Other (Right chest wall port)
GI: Soft, Non Tender, Non Distended and Normal Bowel Sounds
Musculoskeletal: No Edema
Skin: Warm and Dry
Neuro: AO x 3
Psych: Calm
Results
WBC 7.7 10^3/uL (4.8-10.8) 04/27/24 03:20
Hgb 10.1 g/dL (13.0-18.0) L 04/27/24 03:20
Hct 30.8 % (39.0-52.0) L 04/27/24 03:20
MCV 88.8 fL (80.0-94.0) 04/27/24 03:20
Plt Count 237 10^3/uL (130-400) 04/27/24 03:20
Absolute Neuts (auto) 5.0 10^3/uL (1.4-6.5) 04/27/24 03:20
APTT 93.8 Sec (23.4-35.0) H 04/26/24 05:41
Sodium 137 mmol/L (135-145) 04/27/24 03:20
Potassium 4.5 mmol/L (3.5-5.1) 04/27/24 03:20
Chloride 106 mmol/L (98-107) 04/27/24 03:20
Carbon Dioxide 25 mmol/L (22-30) 04/27/24 03:20
BUN 23 mg/dl (9-20) H 04/27/24 03:20
Creatinine 1.3 mg/dL (0.7-1.3) 04/27/24 03:20
Calcium 9.0 mg/dl (8.4-10.2) 04/27/24 03:20
Total Bilirubin 0.4 mg/dl (0.2-1.3) 04/24/24 10:04
AST 28 U/L (17-59) 04/24/24 10:04
ALT 20 U/L (0-50) 04/24/24 10:04
Alkaline Phosphatase 76 U/L (38-126) 04/24/24 10:04
Diagnostic Image Results:
Prior GI Procedures:
EGD: With Dr. Reis. Patient states EGD is up-to-date. States that he had portal hypertension seen on EGD. No history of varices
Colonoscopy: 12/29/2023 colonoscopy ([facility]) likely malignant tumor at hepatic flexure. Biopsied. Tattooed. 3 diminutive polyps in the transverse colon, removed with cold snare. Resected and retrieved. Diverticulosis in the sigmoid colon and
the descending colon and the transverse colon and the ascending colon and in the cecum. Internal hemorrhoids. Exam was otherwise normal. Repeat colonoscopy in 6 months for surveillance
Assessment / Plan
-
78-year-old male with past medical history of hypertension, hyperlipidemia, chronic kidney disease, GERD, anxiety, history of hepatitis C treated. He was diagnosed with colon cancer for stage IIIb colon cancer of the hepatic flexure T3 N2 M0 status
post extended right hemicolectomy on 02/05/2024 at [facility]. The patient recently had a right chest wall port placed on 04/19/2024. Patient recently started oxaliplatin and Xeloda treatment with Dr. Rodriguez on 04/21/2024. He
presents to the emergency room after waking up on Thursday a.m. with left-sided discomfort as well as shortness of breath. We are asked to evaluate for risk stratification for possible cardiac surgery given patient's history of cirrhosis. The
patients hepatitis C [place] [address] [facility] with sustained viral response, compensated cirrhosis since at least [address] of the abdomen and pelvis followed by Dr. Reis with imaging
every 6 months and alpha-fetoprotein which has been normal. Patient undergoes routine variceal surveillance every 2 years. Patient states last EGD was performed and showed only portal hypertension without any signs of bleeding. The patient has
never had an upper GI bleed. He has no history of varices. He has no history of ascites or encephalopathy. He has never been placed on diuretics. His next follow-up appoint with Dr. Reis is in June. I was able to review some records from
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 I was also able to review his prior PCP notes.
Impression:
Compensated Cirrhosis UTD on routine surveillance, confirmed with patient's Racing Driver
[facility] Cirrhosis surgical risk score is a 2.4% 90-day decompensation predicted postoperative outcome and 1% 30-day predicted postoperative mortality.
-Follow up with his Primary Racing Driver in June as planned. I updated Dr. Reis about patient current events per patient request.
Data Reviewed
-
Radiology: Report Reviewed by me
CT Scan: Report Reviewed by me
Ultrasound: Report Reviewed by me
Old Records: Reviewed
-
-
Thank you for consultation and allowing me to participate in the patient's care. Please call the [facility] GI physician during the after hours with any questions or concerns.
[2024-04-27] MEDS: XANAX 0.5 MG PO (21:24)
[2024-04-27] MEDS: PROTONIX 40 MG PO (21:24)
--- NOTE | 2024-04-27 21:34 | PTCARENOTE ---
Pt with c/o cramping and spasms all over; neck, knees,lower legs. calling out in pain. Tylenol and Xanax given at this time. Sinus with BBB on telemetry. Pt aware of npo status after mn for abd US. Pt remains afebrile
[2024-04-28] VITALS (7 sets, daily range): BP systolic 113–138; BP diastolic 55–67; PULSE 65
--- NOTE | 2024-04-28 03:46 | PTCARENOTE ---
Pt still with occ short lived shooting pains in legs. vs taken,and labs drawn
[2024-04-28 04:23] LABS: ALT (SGPT) 21 U/L (0-50); AST (SGOT) 46 U/L (17-59); Albumin 3.8 g/dl (3.5-5.0); Alkaline Phosphatase 74 U/L (38-126); Blood Urea Nitrogen 25 mg/dl (9-20); Carbon Dioxide 25 mmol/L (22-30); Chloride 100 mmol/L (98-107); Direct Bilirubin 0.3 mg/dl (0.0-0.4); Estimated Creatinine Clearance 40 ml/min; Glucose 117 mg/dl (70-99); Potassium 4.5 mmol/L (3.5-5.1); Sodium 135 mmol/L (135-145); Total Bilirubin 0.7 mg/dl (0.2-1.3); Total Protein 6.4 g/dl (6.3-8.2); eGFR 47.06
[2024-04-28] MEDS: NORVASC 5 MG PO (09:22)
[2024-04-28] MEDS: LOW STRENGTH ASPIRIN 81 MG PO (09:22)
[2024-04-28] MEDS: LIPITOR 80 MG PO (09:22)
[2024-04-28] MEDS: ZITHROMAX 500 MG PO (09:22)
[2024-04-28] MEDS: LOPRESSOR 25 MG PO ×2 (09:22→21:40)
--- NOTE | 2024-04-28 09:31 | W.PN.PUL.V3 ---
Today's Communication / Plan
-
Temperature spike noted-1/2 blood culture positive
Not convinced pneumonia
Procalcitonin negative
Chest x-ray clear-suspect was mostly fluid
Contemplating bypass surgery versus medical therapy
Assessment
-
78-year-old male with a history of hypertension, hyperlipidemia, obstructive sleep apnea with recent diagnosis of colon cancer undergoing immunotherapy/chemotherapy and pulmonary consulted for abnormal CT chest 04/25/2024.
Atypical chest pain and shortness of breath
Mild anemia-hemoglobin 10.6-normocytic
Elevated troponin
Conditions present prior to admission:
Hypertension.
Hyperlipidemia.
Chronic kidney disease stage IIIb.
GERD.
Anxiety/depression
Colon cancer diagnosed January 2024-status post resection, 6 of 40 lymph nodes positive for on immunotherapy/chemotherapy-oxaliplatin and Xeloda.
Hepatitis C/interferon treatment 1994.
Obstructive sleep [id number], desaturation chula 77%-[id number]-9-66 cm
Periodic limb movements of sleep
COPD/restrictive lung disease
Decreased diffusing capacity
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
Pulmonary nodule-4 mm left lower lobe stable 2014 through 2021
Elevated hemidiaphragm
Chronic cough
Postnasal drip
Vasomotor rhinitis
History of shingles
Hiatal hernia
Bilateral cataract
Postnasal drip
Shoulder surgery 10 years ago
Plan
Mild respiratory decompensation with abnormal CT chest, noted aortic regurgitation, aortic sclerosis, mild mitral regurgitation, suspected fluid overload and possible pneumonitis
Multiple radiographs as well as multiple CTs chest summarized below
Recommended treating pneumonia as well as fluid overload with radiographic follow-up
Oxaliplatin and Xeloda recently started-can cause interstitial pneumonitis, but, he has only received 1 dose 1 week ago and unless hypersensitivity reaction less likely immunotherapy/chemotherapy induced lung injury
Hold oxaliplatin and Xeloda for now
Oncology following-correspondence reviewed
Supplemental oxygen if needed-currently on room air and 100%
Nebulizers if needed-currently not bronchospastic
Chest x-ray 04/27/2024-resolution of interstitial markings, no findings to suggest pneumonia
Temperature spike 04/27/2024 noted
Check cultures
Sputum culture if possible
Ceftriaxone and azithromycin continue-finish finite course
Procalcitonin negative and chest x-ray without clear infiltrate-not convinced patient has bronchitis or pneumonia
Troponin trended
Cardiology evaluation noted-correspondence reviewed
Cardiac catheterization 04/26/2024-significant CAD-50% distal left main extending into 80% ostial left circumflex, 70% ostial intermedius and 50 to 60% ostial LAD stenosis and elevated left ventricular end-diastolic pressure at 33
Discussions in regards to medical therapy versus bypass grafting-patient unsure if he is willing to undergo bypass surgery-earliest would be tomorrow, however, now has temperatures etc.
Echocardiogram summarized below
Diuresis as tolerated
Monitor renal function, electrolytes, intake/output, lower extremity edema and weight
Replace electrolytes as needed
GI evaluation noted with history of cirrhosis-correspondence reviewed-in light of cirrhosis they quoted 5% cardiac surgical risks in terms of decompensation and mortality
After adequate diuresis repeat imaging-if interstitial pattern resolves then majority was likely fluid related and not immuno/chemotherapy induced
proBNP on 04/24/2024 was not significantly elevated
Follow hemoglobin
Transfuse if needed
DVT prophylaxis-on heparin
GI prophylaxis-on pantoprazole
Nutrition
Early mobilization
Reviewed with nursing as well as primary team
Last seen by Dr. Mccabe/-had been recommended follow-up in 1 year for CPAP compliance-will see sooner after this hospitalization
Diagnostic data:
Chest x-ray 01/15/2022-new mild to moderate elevation right hemidiaphragm
Chest x-ray 04/24/2024-increased reticular nodular markings within both lung, likely representing interstitial type pneumonia
CT chest 01/23/22-cough and elevated diaphragm, findings-Mildly elevated right hemidiaphragm, unchanged prior chest x-ray 01/15/22, no significant change compared to abdomen. CT 01/04/15, mild linear opacification each lung base suggesting subsegmental
atelectasis, right greater than left, no evidence for lobar pneumonia, emphysema or interstitial fibrosis, small lung nodule at the left base, 4 mm, unchanged compared to prior abdominal CT dating to and likely benign, moderate coronary artery
calcifications, mild aortic valvular calcification.
CT chest abdomen pelvis 01/01/2024-focal wall thickening and luminal narrowing superior aspect of ascending colon, no pathological mesenteric lymphadenopathy, small groundglass nodule left lower lobe measuring 4 mm, linear opacification at the Base
Suggesting Scarring or Subsegmental Atelectasis, No Lobar Airspace Consolidation, Pleural Effusion or Pneumothorax
CT Chest 04/24/2024-Negative for Pulm Embolism, Increased Reticular and Groundglass Opacifications within Both Lungs Likely Representing Pneumonitis, Pulmonary Edema Could Be Considered on Differential but Less Likely, Bronchial Wall Thickening May
within the Lower Lungs Suggesting Bronchitis
PET Scan 04/04/2024-No PET/CT Evidence for Hypermetabolic Metastatic Disease
Echocardiogram 04/21/2023-EF 55-60%, mild mitral regurgitation, aortic sclerosis with mild aortic regurgitation, normal pulmonary artery pressures
Spirometry 11/12/22-FEV1 1.89 L-64%, FVC 2.75 L-67%, no significant BD response. Moderate obstruction
PFT 02/10/23-FEV1 2.24-78%, FVC 3.45-85%, 8% BD response, TLC 69%, RV 44%, DLCO 84%. Mild combined obstruction and restriction with mild reduction in diffusing capacity.
6 minute walk test 02/10/23-Ambulated 1050 feet with a desaturation chula of 94%. The maximum heart rate of 101. Maximum dyspnea scale score 0. No supplemental oxygen required.
HST 10/08/2022-AHI-25, desaturation chula 77%, 1.1-minute spent less than 88% saturation-on AutoPap-average 7-10 cm
Subjective Data
-
Date of Service:
Date of Service: April 28, 2024
Chief Complaint: Pulmonary Follow Up and Dyspnea Follow Up
Subjective:
No worsening shortness of breath, no respiratory distress
Review of Systems
General: Other (Per HPI)
Objective Data
Data Reviewed
Vital Signs / I&O:
Vital Signs
Temp Pulse Resp BP Pulse Ox
99 F 70 20 117/58 98
04/28/24 08:07 04/28/24 09:22 04/28/24 08:07 04/28/24 09:22 04/28/24 08:07
Intake and Output
04/27/24 04/28/24 04/29/24
06:59 06:59 06:59
Intake Total 208 / 208
Balance 208 / 208
SaO2: 98
Nasal Cannula flow liters per minute: 2
Physical Exam
General: Respiratory Distress (n) and Comfortable
HEENT: Normocephalic, Anicteric and Moist Mucous Membranes
Cardiovascular: Regular Rhythm
Respiratory: Wheeze (n), Crackles (n), Rhonchi (n), Non-Labored Respirations, Accessory Resp Muscle Use (n) and Stridor (n)
GI: Soft, Non Distended and Non Tender
Neurology: Awake, Alert and No Motor Deficits
Skin: Warm, Good Color, Cyanosis (n), Jaundice (n) and Rash (n)
Labs/Micro/Reports
Lab Data
04/27/24 03:20
04/28/24 03:55
Laboratory Results
04/28/24
00:22
APTT Cancelled
--- NOTE | 2024-04-28 10:58 | NUT.ASMT ---
[facility] Nutrition Assess/Interview
- Patient History
Diagnosis / Referral:
Patient Phone: Use [email or web address] instead
Referring Physician:
Referral Source: [facility]
Reason for Referral: diagnosis
Diagnosis: Colorectal cancer
Past Medical History: CAD
48 Hour Diet Recall:
Day 1
Breakfast:
Snack 1:
Lunch:
Snack 2:
Dinner:
Snack 3:
Day 2
Breakfast:
Snack 1:
Lunch:
Snack 2:
Dinner:
Snack 3:
- Anthropometrics
Height in Inches: 69.5
Height in Centimeters: 176.530
Stated weight in lbs: 200.6
Stated weight in Kilograms: 90.99
BMI: 29.2
Unintentional weight gain in lbs: Weight gain 12 pounds
- Labs and Medication
BUN Cancelled 04/28/24 03:55
Glucose Cancelled 04/28/24 03:55
Triglycerides 94 mg/dl (10-149) 04/25/24 02:03
Total Cholesterol 127 mg/dl (50-199) 04/25/24 02:03
HDL Cholesterol 48 mg/dl 04/25/24 02:03
alprazolam 0.5 mg tablet 0.5 mg PO HS anxiety/sleep 04/19/24
amlodipine 5 mg tablet 5 mg PO DAILY Blood Pressure 04/19/24
atorvastatin 20 mg tablet 20 mg PO DAILY High Cholesterol 04/19/24
benazepril 10 mg tablet 10 mg PO DAILY Blood Pressure 04/19/24
polyethylene glycol 3350 17 gram oral powder packet (Miralax) 17 g PO DAILY PRN constipation 04/19/24
Xeloda 3 tab PO DIRECTED Cancer 04/24/24
omeprazole 20 mg capsule,delayed release 40 mg PO HS Gastrointestinal Issue 04/24/24
ondansetron 8 mg disintegrating tablet 8 mg PO Q8H PRN nausea/vomiting 04/24/24
prochlorperazine maleate 10 mg tablet 10 mg PO Q6H PRN nausea/vomiting 04/24/24
- Assessment
Patient / Caregiver Interview:
Called patient today to dicusss any side effects of cancer diagnosis and s/p surgery, however he reported he is in the hospital and needs heart surgery. He said he was admitted with high fever and has vomited today, and he is thirsty but he does
not think he is allowed to eat or drink at present. He stated his recent weight gain is likely due to eating well and liking to cook, but he may also be experiencing fluid changes with current cardiac diagnosis.
Assessment / Nutrition Diagnosis: Potential for altered nutrition intake related to cancer and cardiac diagnoses.
Nutrition Interventions / Education provided: Will f/u for nutrition assessment and counseling for outpatient diet needs when current status medical stabilizes and patient has been discharged from hospital.
--- NOTE | 2024-04-28 11:49 | W.PN.CARDCBS ---
Addendum entered and electronically signed by Matt Newton MD 04/28/24 15:53:
I saw and examined the patient.
The Sagger Maker's note was reviewed and I agree with the note.
Comment: Briefly, 78-year-old man presenting with chest discomfort found to have elevated troponin consistent with NSTEMI
Invasive coronary angiography revealed multivessel CAD and he was recommended to undergo coronary artery bypass grafting
At this time he is not interested in proceeding with surgery, tells me he would reconsider this in the fall
For now would recommend medical management of CAD with aspirin/Plavix, high intensity statin. Cont metoprolol and amlodipine as anti-anginals.
Cardiac rehab referral
Treatment of Pseudomonas bacteremia per hospital medicine and infectious disease
We will sign off, please recall as needed
Outpatient cardiology follow-up arranged
Recommended cardiac meds on discharge:
Aspirin 81 mg daily
Plavix 75 mg daily
Atorvastatin 80 mg daily
Amlodipine 5 mg daily
Toprol-XL 25 mg daily
Original Note:
Today's Communication / Plan
-
New to Lopressor 25 mg BID
New to aspirin 81 mg daily
Consider adding Plavix 75 mg daily now that he has declined CABG for the time being
Hold benazepril and can restart as an outpatient
Cont prior to admission dose of amlodipine 5 mg daily
Cont higher dose atorvastatin 80 mg daily
Cardiology follow up arranged
Impression / Plan
-
PCP: Dr. Jean
Cardiology: None prior to admission, seen initially by Dr. Hebert
Impression:
Chest pain
Elevated Troponin, possible NSTEMI, Troponin up to 0.688
CAD with 50% distal LM stenosis extending into 80% ostial left circumflex stenosis, 70% ostial Ramus stenosis and 50 to 60% ostial LAD stenosis by cath 04/26/24
Colon cancer status post chemotherapy treatment with oxaliplatin and Xeloda 04/21
Hypertension
Hyperlipidemia
New left bundle branch block
CKD 3
GERD
History hepatitis C
Pseudomonas bacteremia
Echo 04/21/23: EF 55 to 60%, mild LVH, mild MR, aortic sclerosis with mild AI
Echo 04/25/24: EF 65 to 70%, mild concentric LVH, mild aortic regurgitation, mild AAS mean gradient 18 mmHg and CARLOS ALBERTO 1.3 cm sq
Plan:
-Talked with patient again 04/28/24 about treatment options for his multivessel CAD. Patient states that he wants to continue with medical therapy for now and wait to have CABG until the weather is bleaker, he doesn't want to have to recover from CABG
during the nice weather of the spring and summer. Patient says that he wants to maximize the time he has left in his life.
-Reviewed that patient does not have percutaneous options and that options are really only CABG or medical therapy.
-Medical therapy includes addition of Lopressor 25 mg BID and aspirin 81 mg daily. Technically patient is a NSTEMI and was not on DAPT due to possibility of CABG, but now he says he does not want CABG for the foreseeable future so would consider
adding Plavix 75 mg daily.
-Outpatient dose of benazepril is on hold due to CKD and plans for cardiac cath
-Outpatient dose of amlodipine 5 mg daily continued
-Heparin gtt ran for 48 hours and has now stopped.
-LDL 61, outpatient dose of atorvastatin increased to 80 mg daily
-Chest pain on admission and Troponin peaked at 0.688. No recurrence of chest pain which was an atypical left rib pain. Reviewed that if he has recurrent pain he should return to the ER. EF stable at 65-70%.
-Abdominal u/s 05/08/23 showed cirrhosis and looking back in [employer] he had an u/s in 2016 that showed cirrhosis as well. GI saw patient 04/27/24 and believe he is compensated from a cirrhosis standpoint.
-LVEDP was 33 on 04/26/24. He was given Lasix 40 mg IV x1 on 04/27/24 resulting in FAIZA. Will not attempt further diuresis. Would not consider this acute HF given FAIZA after attempt to diurese with a single dose of Lasix.
-Now with Pseudomonas growing in blood cultures 04/28/24. ID to see.
-Patient says he wants to go home 04/28/24.
HPI: 78-year-old male with past medical history of hypertension, hyperlipidemia, colon cancer status post treatment 3 days ago with oxaliplatin and daily Xeloda, presents with left-sided chest pains and shortness of breath. The pain felt like an
ache or pressure and started at 3 AM this morning and then improved. It then again reoccurred and he presented to the emergency room. He had some mild shortness of breath. The pain seemed worse with deep breaths or twisting or pulling. He has
never had this pain before. CT scan of the chest was performed which revealed no pulmonary embolism. He denies any palpitations, dizziness, or syncope. He denies any orthopnea, PND, or edema. He has no bleeding. He has no fevers or chills. He
has no coughing or wheezing. He still is having some mild left-sided chest pain. He was also found to have a new left bundle branch block.
Progress Note - Resident Surgeon
Subjective
Date of Service: April 28, 2024
He says the weather is nice and he wouldn't want to have to recover from CABG when the weather is so nice
Objective
Labs:
04/27/24 03:20
04/28/24 03:55
Labs
Hgb 10.1 g/dL (13.0-18.0) L 04/27/24 03:20
Hct 30.8 % (39.0-52.0) L 04/27/24 03:20
Plt Count 237 10^3/uL (130-400) 04/27/24 03:20
APTT Cancelled 04/28/24 00:22
Sodium Cancelled 04/28/24 03:55
Potassium Cancelled 04/28/24 03:55
BUN Cancelled 04/28/24 03:55
Creatinine Cancelled 04/28/24 03:55
Glucose Cancelled 04/28/24 03:55
Troponins
04/25/24 04/26/24
15:08 05:41
Troponin I 0.284 H* 0.234 H*
Vital Signs and I&O:
Vital Signs
Temp Pulse Resp BP Pulse Ox
98.7 F 67 20 120/59 99
04/28/24 11:31 04/28/24 11:45 04/28/24 11:31 04/28/24 11:31 04/28/24 11:31
Vital Signs
Temp Pulse Resp BP Pulse Ox
98.7 F 67 20 120/59 99
04/28/24 11:31 04/28/24 11:45 04/28/24 11:31 04/28/24 11:31 04/28/24 11:31
Intake & Output
04/26/24 04/27/24 04/28/24 04/29/24
06:59 06:59 06:59 06:59
Intake Total 208 / 208
Balance 208 / 208
Physical Exam
Physical Exam
GEN: NAD. AAOx3
HEENT: MMM
LUNGS: No audible wheeze
CV: SR with LBBB on tele
ABD: ND
EXT: No edema B/L
NEURO: Gross non-focal
SKIN: No rash
--- NOTE | 2024-04-28 12:05 | PTCARENOTE ---
Pt AOx3, no complaints of pain or discomfort. Pt went for ultrasound of abdomen this AM. VSS. NSR on tele monitor. Call coughlin within reach.
--- NOTE | 2024-04-28 13:00 | W.PN.HOSP.TC ---
Today's Communication/Plan
-
continue Abx pending ID recs
patient remains unsure about CABG/timing
Assessment / Plan
Assessment / Plan
Assessment:
Acute hypoxic respiratory insufficiency - due to pneumonitis vs volume overload. Oxygenation improved, now on RA. Reportedly was 89% on room air prior to arrival and briefly required 2L NC.
Acute pneumonitis vs volume overload on CT
- CT read: increased reticular and ground-glass opacities within both lungs. Bronchial wall thickening mainly within the lower lungs suggesting bronchitis.
- d/w pulm/onc, unlikely pneumonitis at this point, only started chemo x 1 week ago
- also CXR rapidly improved, s/p 1 IV Lasix dose, so more likely volume overload possibly in setting of NSTEMI
- with fever, continue Abx Azithromcyin + Cefepime for now
- continue to monitor
Fever
Gram negative bacteremia
- continue Cefepime, day 1
- follow cultures
- ID Consulted
FAIZA on CKD stage 3b
- possibly due to volume depletion. Creatinine 1.3, BUN 25. Prerenal azotemia. Hold LAURA
NSTEMI
- EKG: shows left bundle branch block with sinus rhythm
- trop peaked at .688
- Lopressor BID
- LDL 61; statin
- LHC: Significant coronary artery disease involving 50% distal left main stenosis extending into 80% ostial left circumflex stenosis, 70% ostial ramus intermedius artery stenosis and 50 to 60% ostial LAD stenosis. Significantly elevated LVEDP at 33
mmHg.
- Echo: EF 65%, mild AR, mild , trace TR
- DCA cards and CT surgery following; CABG offered, patient still contemplating
Essential HTN
- continue Norvasc 5mg daily
Colon cancer - T3. Just started chemotherapy on with 1 dose of oxaliplatin and oral Xeloda. Has a port in place. Oncology following.
ALMA -on CPAP at bedtime.
HCV
Code: DNR
Anticipated Discharge: > 48 hours
Subjective/Interval History
-
Date of Service: April 28, 2024
denies any chest pain or sob
no fevers
gram neg bacteremia discovered
Objective Data
-
Labs:
Laboratory Results
04/28/24 04/28/24 04/28/24
00:22 03:22 03:55
APTT Cancelled
Sodium 135 Cancelled
Potassium 4.5 Cancelled
Chloride 100 Cancelled
Carbon Dioxide 25 Cancelled
BUN 25 H Cancelled
Creatinine 1.5 H Cancelled
Glucose 117 H Cancelled
Calcium 9.0 Cancelled
Total Bilirubin 0.7
AST 46
ALT 21
Alkaline Phosphatase 74
Vital Signs:
Vital Signs
Temp Pulse Resp BP Pulse Ox
98.7 F 67 20 120/59 99
04/28/24 11:31 04/28/24 11:45 04/28/24 11:31 04/28/24 11:31 04/28/24 11:31
I&O
04/27/24 04/28/24 04/29/24
06:59 06:59 06:59
Intake Total 208 / 208
Balance 208 / 208
Physical Exam
-
General: No Apparent Distress
HEENT: Normocephalic and Atraumatic
Respiratory: Negative Wheezes
Cardiac: Regular Rhythm
GI: Soft
Musculoskeletal: No Edema
Neuro: AO x 3
Psych: Calm
Data Reviewed
-
Total Time Spent with Patient (in minutes): 45
Labs: Labs Reviewed by me
[2024-04-28] MEDS: MAXIPIME 1000 MG IV (13:22)
[2024-04-28] MEDS: STERILE WATER FOR INJECTION 10 ML IV ×2 (13:22→21:39)
--- NOTE | 2024-04-28 15:50 | W.PN.UPDATE ---
Update Note
Progress Note Update
Met with the patient briefly this afternoon. Explained to him that we will have a more definitive plan for him once Infectious Disease as well as the rest of the team weighs in. He expressed understanding and also expressed the desire to go home and
return at a later date if that is acceptable to the medical team. He also asked if surgery was 'really necessary' and could he be treated with medicine optimization? I gently informed him that those decisions are best made once all pertinent
information and consultations are obtained. I told him we would revisit his case tomorrow. He again expressed understanding and agreement with the plan.
--- NOTE | 2024-04-28 16:34 | CON.ID ---
Consultation
-
Date/Time Consultation Requested: 04/28/2024 1139
Date/Time Consultation Performed: 04/28/2024 1630
Requesting Provider: Dr. Moran
Performing Provider: Dr. Murray
Reason for Consultation: Bacteremia
Chief Complaint / Past History
History of Present Illness
Sylvester Bhatti is a 78-year-old man being evaluated at the request of Dr. Moran in regards to bacteremia. History is obtained from chart review, along with patient interview.
Patient has a significant past medical history of colon cancer and presented to [facility] on 04/24 with complaints of chest pain and shortness of breath. Symptomatology started earlier that day with left-sided and epigastric pain, along with
pleuritic pain and a slight nonproductive cough. His first chemotherapy was 4 days prior to admission.
On 04/27/2024, the patient developed fever, and blood cultures were obtained; one of which is now positive for Pseudomonas. Infectious Diseases is asked to manage further antimicrobial therapy.
The patient denies any fever prior to admission, but did note having fever afterwards, although noted temperature spikes were recorded only on 04/27/2024. The patient notes that he had a Port-A-Cath placed last week. He currently notes a small
amount of tenderness at the site, but there has been no difficulty with port functioning. He admits to cough, but with minimal sputum production and only slight congestion. He denies seeing any skin lesions on his body.
Past History
Additional Past Medical History:
HTN
Dyslipidemia
CKD stage IIIb
GERD
Anxiety
Stage III colon cancer (Dx 01/2024; on current chemo)
Hx hep C
Cardiac murmur
Additional Past Surgical History:
Port-A-Cath placement
Partial colectomy
Foot surgery
Allergy History:
meperidine [From Demerol] Allergy (Verified 04/15/24 17:09)
Unknown
Sulfa (Sulfonamide Antibiotics) Allergy (Verified 04/15/24 17:09)
Unknown
Medications Reviewed: Yes
Current Antibiotics:
Cefepime 1 g IV every 8 hours (day #1)
Azithromycin 500 mg p.o. daily (day #2)
Social History
Tobacco: Former Smoker
Alcohol: Occasional
Drug: None
Employment: Retired
Family History
Family History: Not Pertinent
Review of Systems
Vital Signs
Temp Pulse Resp BP Pulse Ox
98.1 F 63 22 134/55 99
04/28/24 15:21 04/28/24 15:30 04/28/24 15:21 04/28/24 15:20 04/28/24 15:21
Physical Exam
Physical Exam
Constitutional: No Acute Distress, Comfortable and Non-toxic
Eyes: Pupils Equal, Pupils Round, No Conjunctival Hemorrhage and Sclera Anicteric
Oral: No Thrush and No Ulcers
Cardiovascular: S1/S2; Negative S3/S4 or Murmur
Pulmonary: Non Labored; Negative Wheezes, Rales or Rhonchi
Gastrointestinal: Soft, Non Tender, Non Distended, Normal Bowel Sounds, No Rebound and No Guarding
Genito-Urinary: Negative Harrell
Extremities: Negative Edema, Cyanosis or Erythema
Skin: Warm and Dry; Negative Rash or Jaundice
Neurological: Awake and Alert
Psychological: Calm
Lines: Port (Right ACW; site without tenderness or erythema)
Lab / Diagnostic Study Results
04/27/24 03:20
04/28/24 03:55
Abs Immat Gran (auto) 0.0 10^3/uL (0-0.05) 04/27/24 03:20
Absolute Neuts (auto) 5.0 10^3/uL (1.4-6.5) 04/27/24 03:20
Absolute Lymphs (auto) 1.7 10^3/uL (1.2-3.4) 04/27/24 03:20
Absolute Monos (auto) 0.6 10^3/uL (0.1-0.6) 04/27/24 03:20
Absolute Basos (auto) 0.1 10^3/uL (0-0.2) 04/27/24 03:20
Immature Gran % 0.3 % (0-0.5) 04/27/24 03:20
Neutrophils % 64.5 % (42.2-75.2) 04/27/24 03:20
Lymphocytes % 22.5 % (20.5-51.1) 04/27/24 03:20
Monocytes % 7.7 % (1.7-9.3) 04/27/24 03:20
Eosinophils % 4.2 % (0-6) 04/27/24 03:20
Basophils % 0.8 % (0-2) 04/27/24 03:20
Procalcitonin < 0.05 ng/ml (0.0-0.25) 04/27/24 13:19
Ur Squamous Epith Cells 16-20 /LPF (Few) 04/27/24 15:05
Microbiology Results
Micro:
04/27/24 14:00 Blood Culture - Preliminary
Blood/Venous Pseudomonas aeruginosa
Gram Stain - Preliminary
04/27/24 13:19 Blood Culture - Preliminary
Blood/Venous No Growth in 24 hours- Final report to follow
04/27/24 15:05 Urine Culture - Pending
Urine
Imaging:
04/28/2024 Abdominal ultrasound:
1. MILD HEPATIC CIRRHOSIS without sonographic evidence for hepatocellular carcinoma.
2. No sonographic evidence for cholelithiasis or biliary obstruction.
3. Mild chronic bilateral renal disease.
4. Severe calcific atherosclerotic plaque in the abdominal aorta.
04/24/2024 CT chest (PE study): No evidence of PE. Increased reticular and groundglass opacities within both lungs, likely representing pneumonitis. Pulmonary edema remains on the differential. Small amount of fluid within the pleural fissure on
the right. Bronchial wall thickening, mainly within the lower lungs. Please see full dictation for additional detail.
Assessment / Plan
Pseudomonas bacteremia
Fever
Pulmonary infiltrates
FAIZA on CKD
HTN
Dyslipidemia
GERD
Anxiety
Stage III colon cancer (Dx 01/2024; on current chemo)
Hx hep C
Cardiac murmur
Recommendations:
Source of recovered Pseudomonas not immediately clear. Exam is nonfocal. Possible sources include port which was recently placed vs abdominal source vs urine.
For now, continue with cefepime. Increase dose to 2 g IV every 12 hours
Will repeat blood cultures now to assess clearance.
Await further culture data to guide antimicrobial selection and de-escalation.
[2024-04-28] MEDS: PLAVIX 300 MG PO (17:14)
[2024-04-28] MEDS: MAXIPIME 2000 MG IV (21:38)
[2024-04-28] MEDS: TYLENOL 650 MG PO (21:38)
[2024-04-28] MEDS: PROTONIX 40 MG PO (21:39)
[2024-04-28] MEDS: XANAX 0.5 MG PO (21:39)
[2024-04-29] VITALS (9 sets, daily range): BP systolic 115–164; BP diastolic 56–72; PULSE 68; BMI 26.9
[2024-04-29 03:37] LABS: Hematocrit 31.8 % (39.0-52.0); Hemoglobin 10.6 g/dL (13.0-18.0); Mean Corp Hgb Conc. 33.3 g/dL (33.0-37.0); Mean Corpuscular Hgb 29.7 pg (27.0-31.0); Mean Corpuscular Volume 89.1 fL (80.0-94.0); Mean Platelet Volume 9.9 fL (7.4-10.4); Platelet Count 230 10^3/uL (130-400); Red Blood Cell Count 3.57 10^6/uL (4.70-6.10); Red Cell Dist. Width 13.1 % (11.5-14.5); White Blood Cell Count 6.7 10^3/uL (4.8-10.8)
[2024-04-29 04:04] LABS: Blood Urea Nitrogen 24 mg/dl (9-20); Calcium 8.9 mg/dl (8.4-10.2); Carbon Dioxide 25 mmol/L (22-30); Chloride 103 mmol/L (98-107); Estimated Creatinine Clearance 40 ml/min; Glucose 103 mg/dl (70-99); Potassium 4.3 mmol/L (3.5-5.1); Sodium 137 mmol/L (135-145); eGFR 47.06
--- NOTE | 2024-04-29 08:02 | PTCARENOTE ---
Pt known to have heart rate down to 40's overnight. Contacted Dr Moran as follows:
Mr. Bhatti had heart rates down in 40's overnight. I know beta jose is important with his CAD, 25mg XL. His heart rate is higher during the day. I just need to know if it is okay to give it this am. I contacted cardiology and they said they
already signed off on him.
He stated: around 10 or so if higher HR then we can give
--- NOTE | 2024-04-29 08:10 | W.PN.UPDATE ---
Update Note
Progress Note Update
Patient seen this am. He expresses that he is not interested in surgery at this time. We spoke with cardiology about medical management optimization. Patient will be given a follow up with Dr. Calvo to be seen on 08/02/24 @ 1030. Cardiac surgery
signing off at this time.
Vivian VU
Cardiac Surgery
--- NOTE | 2024-04-29 08:42 | PTCARENOTE ---
Discussed port access with Dr Murray. He states we can use the port for IV and pt does not need a peripheral site. He states the infection may be port but states we can use it.
[2024-04-29] MEDS: NORVASC 5 MG PO (08:49)
[2024-04-29] MEDS: LIPITOR 80 MG PO (08:49)
[2024-04-29] MEDS: PLAVIX 75 MG PO (08:50)
[2024-04-29] MEDS: LOW STRENGTH ASPIRIN 81 MG PO (08:50)
[2024-04-29] MEDS: ZITHROMAX 500 MG PO (08:50)
--- NOTE | 2024-04-29 08:51 | W.PN.ID1 ---
Date of Service
Date of Service: April 29, 2024
Today's Communication
Continue with cefepime (day #3)
Assessment / Plan
Pseudomonas bacteremia
Fever
Pulmonary infiltrates
FAIZA on CKD
HTN
Dyslipidemia
GERD
Anxiety
Stage III colon cancer (Dx 01/2024; on current chemo)
Hx hep C
Cardiac murmur
Recommendations:
Source of recovered Pseudomonas not immediately clear. Exam is nonfocal. Possible sources include port which was recently placed vs abdominal source vs urine.
Continue with cefepime (day #3)
Follow repeat blood cultures to assess clearance.
Await further culture data to guide antimicrobial selection and de-escalation.
Chief Complaint
-: Bacteremia
Subjective / Review of Systems
Patient seen and examined. Overall feels well. Denies specific complaints.
Vital Signs / Physical Exam
Vital Signs
Vital Signs
Temp Pulse Resp BP Pulse Ox
97.7 F 57 20 123/56 99
04/29/24 07:10 04/29/24 08:49 04/29/24 07:10 04/29/24 08:49 04/29/24 07:10
Physical Exam
Constitutional: No Acute Distress, Comfortable and Non-toxic
Eyes: No Conjunctival Hemorrhage and Sclera Anicteric
Cardiovascular: S1/S2; Negative S3/S4
Pulmonary: Non Labored; Negative Wheezes or Rales
Gastrointestinal: Soft, Non Tender and Non Distended
Skin: Negative Rash or Jaundice
Neurological: Awake and Alert
Psychological: Calm
Lines: Port (R ACW port; nontender)
Objective Data
Lab Data
Lab Results
04/29/24 03:18
04/29/24 03:18
APTT Cancelled 04/28/24 00:22
Estimated Creat Clear 40 ml/min 04/29/24 03:18
Total Bilirubin 0.7 mg/dl (0.2-1.3) 04/28/24 03:22
AST 46 U/L (17-59) 04/28/24 03:22
ALT 21 U/L (0-50) 04/28/24 03:22
Alkaline Phosphatase 74 U/L (38-126) 04/28/24 03:22
Most recent labs reviewed.
Micro Results:
04/27/24 14:00 Blood Culture - Preliminary
Blood/Venous Pseudomonas aeruginosa
Gram Stain - Preliminary
04/28/24 19:19 Blood Culture - Pending
Blood/Venous
04/28/24 17:31 Blood Culture - Pending
Blood/Venous
04/27/24 13:19 Blood Culture - Preliminary
Blood/Venous No Growth in 24 hours- Final report to follow
04/27/24 15:05 Urine Culture - Pending
Urine
Imaging:
04/28/2024 Abdominal ultrasound:
1. MILD HEPATIC CIRRHOSIS without sonographic evidence for hepatocellular carcinoma.
2. No sonographic evidence for cholelithiasis or biliary obstruction.
3. Mild chronic bilateral renal disease.
4. Severe calcific atherosclerotic plaque in the abdominal aorta.
04/24/2024 CT chest (PE study): No evidence of PE. Increased reticular and groundglass opacities within both lungs, likely representing pneumonitis. Pulmonary edema remains on the differential. Small amount of fluid within the pleural fissure on
the right. Bronchial wall thickening, mainly within the lower lungs. Please see full dictation for additional detail.
--- NOTE | 2024-04-29 09:23 | W.PN.PUL.V3 ---
Today's Communication / Plan
-
Antibiotics per infectious disease
Now on room air and chest clear without wheezes or crackles
Diuresis per cardiology
Patient would like to hold off on bypass surgery and reevaluate as an outpatient
Pulmonary will sign off-outpatient pulmonary/sleep disorders follow-up is recommended
Assessment
-
78-year-old male with a history of hypertension, hyperlipidemia, obstructive sleep apnea with recent diagnosis of colon cancer undergoing immunotherapy/chemotherapy and pulmonary consulted for abnormal CT chest 04/25/2024.
Atypical chest pain and shortness of breath
Mild anemia-hemoglobin 10.6-normocytic
Elevated troponin
CAD significant noted on cardiac catheterization
Temperature spike with Pseudomonas and blood-? Source-antibiotics per infectious disease
Conditions present prior to admission:
Hypertension.
Hyperlipidemia.
Chronic kidney disease stage IIIb.
GERD.
Anxiety/depression
Colon cancer diagnosed January 2024-status post resection, 6 of 40 lymph nodes positive for on immunotherapy/chemotherapy-oxaliplatin and Xeloda.
Hepatitis C/interferon treatment 1994.
Obstructive sleep [id number], desaturation chula 77%-PatbUvu-5-10 cm
Periodic limb movements of sleep
COPD/restrictive lung disease
Decreased diffusing capacity
Former [id number]-left-year quit 31 years old.
Pulmonary nodule-4 mm left lower lobe stable 2014 through 2021
Elevated hemidiaphragm
Chronic cough
Postnasal drip
Vasomotor rhinitis
History of shingles
Hiatal hernia
Bilateral cataract
Postnasal drip
Shoulder surgery 10 years ago
Plan
Mild respiratory decompensation with abnormal CT chest, noted aortic regurgitation, aortic sclerosis, mild mitral regurgitation, suspected fluid overload and possible pneumonitis
Oxaliplatin and Xeloda recently started-can cause interstitial pneumonitis, but, he has only received 1 dose 1 week ago and unless hypersensitivity reaction less likely immunotherapy/chemotherapy induced lung injury
Hold oxaliplatin and Xeloda for now
Oncology following-correspondence reviewed
Supplemental oxygen if needed-currently on room air and 100%
Nebulizers if needed-currently not bronchospastic
Chest x-ray 04/27/2024-resolution of interstitial markings, no findings to suggest pneumonia-suggests that infiltrates were cardiogenic/pulmonary edema related
After adequate diuresis repeat imaging-if interstitial pattern resolves then majority was likely fluid related and not immuno/chemotherapy induced
Interestingly the patient's proBNP on 04/24/2024 was not significantly elevated
Temperature spike 04/27/2024 noted
Cultures reviewed
Blood culture 11/24 positive for Pseudomonas
Sputum culture if possible-unable to produce
Ceftriaxone and azithromycin initially-now cefepime and azithromycin under ID guidance
Procalcitonin negative and chest x-ray without clear infiltrate-not convinced patient has bronchitis or pneumonia
Infectious disease following-correspondence reviewed
Troponin trended
Cardiology evaluation noted-correspondence reviewed
Cardiac catheterization 04/26/2024-significant CAD-50% distal left main extending into 80% ostial left circumflex, 70% ostial intermedius and 50 to 60% ostial LAD stenosis and elevated left ventricular end-diastolic pressure at 33
Discussions in regards to medical therapy versus bypass grafting-patient unsure if he is willing to undergo bypass surgery-earliest would be tomorrow, however, now has temperatures etc.
CT surgery following-correspondence reviewed-patient would like to hold off on surgery and will see Dr. Calvo as an outpatient in July
Echocardiogram summarized below
Continues with diuresis as tolerated
Monitor renal function, electrolytes, intake/output, lower extremity edema and weight
Replace electrolytes as needed
GI evaluation noted with history of cirrhosis-correspondence reviewed-in light of cirrhosis they quoted 5% cardiac surgical risks in terms of decompensation and mortality
Follow hemoglobin
Transfuse if needed
DVT prophylaxis-on heparin
GI prophylaxis-on pantoprazole
Nutrition
Early mobilization
Reviewed with nursing as well as primary team
Patient is now on room air, chest clear and pulmonary will sign off-please call with questions
Last seen by Dr. Mccabe 03/08/24-had been recommended follow-up in 1 year for CPAP compliance-will see sooner after this hospitalization
Diagnostic data:
Chest x-ray 01/15/2022-new mild to moderate elevation right hemidiaphragm
Chest x-ray 04/24/2024-increased reticular nodular markings within both lung, likely representing interstitial type pneumonia
CT chest 01/23/22-cough and elevated diaphragm, findings-Mildly elevated right hemidiaphragm, unchanged prior chest x-ray 01/15/22, no significant change compared to abdomen. CT 01/04/15, mild linear opacification each lung base suggesting subsegmental
atelectasis, right greater than left, no evidence for lobar pneumonia, emphysema or interstitial fibrosis, small lung nodule at the left base, 4 mm, unchanged compared to prior abdominal CT dating and likely benign, moderate coronary artery
calcifications, mild aortic valvular calcification.
CT chest abdomen pelvis 01/01/2024-focal wall thickening and luminal narrowing superior aspect of ascending colon, no pathological mesenteric lymphadenopathy, small groundglass nodule left lower lobe measuring 4 mm, linear opacification at the Base
Suggesting Scarring or Subsegmental Atelectasis, No Lobar Airspace Consolidation, Pleural Effusion or Pneumothorax
CT Chest 04/24/2024-Negative for Pulm Embolism, Increased Reticular and Groundglass Opacifications within Both Lungs Likely Representing Pneumonitis, Pulmonary Edema Could Be Considered on Differential but Less Likely, Bronchial Wall Thickening May
within the Lower Lungs Suggesting Bronchitis
PET Scan 04/04/2024-No PET/CT Evidence for Hypermetabolic Metastatic Disease
Echocardiogram 04/21/2023-EF 55-60%, mild mitral regurgitation, aortic sclerosis with mild aortic regurgitation, normal pulmonary artery pressures
Spirometry 11/12/22-FEV1 1.89 L-64%, FVC 2.75 L-67%, no significant BD response. Moderate obstruction
PFT 02/10/23-FEV1 2.24-78%, FVC 3.45-85%, 8% BD response, TLC 69%, RV 44%, DLCO 84%. Mild combined obstruction and restriction with mild reduction in diffusing capacity.
6 minute walk test 02/10/23-Ambulated 1050 feet with a desaturation chula of 94%. The maximum heart rate of 101. Maximum dyspnea scale score 0. No supplemental oxygen required.
HST 10/08/2022-AHI-25, desaturation chula 77%, 1.1-minute spent less than 88% saturation-on AutoPap-average 7-10 cm
Subjective Data
-
Date of Service:
Date of Service: April 29, 2024
Chief Complaint: Pulmonary Follow Up and Dyspnea Follow Up
Subjective:
No complaints of shortness of breath, chest pain, productive cough, abdominal pain
Review of Systems
General: Other (Per HPI)
Objective Data
Data Reviewed
Vital Signs / I&O:
Vital Signs
Temp Pulse Resp BP Pulse Ox
97.7 F 57 20 123/56 99
04/29/24 07:10 04/29/24 08:49 04/29/24 07:10 04/29/24 08:49 04/29/24 07:10
Intake and Output
04/28/24 04/29/24 04/30/24
06:59 06:59 06:59
Intake Total 480 / 480
Balance 480 / 480
SaO2: 99
Nasal Cannula flow liters per minute: 2
Physical Exam
General: Respiratory Distress (n) and Comfortable
HEENT: Normocephalic, Anicteric and Moist Mucous Membranes
Cardiovascular: Regular Rhythm
Respiratory: Wheeze (n), Crackles (n), Rhonchi (n), Non-Labored Respirations, Accessory Resp Muscle Use (n) and Stridor (n)
GI: Soft, Non Distended and Non Tender
Neurology: Awake, Alert and No Motor Deficits
Skin: Warm, Good Color, Cyanosis (n), Jaundice (n) and Rash (n)
Labs/Micro/Reports
Lab Data
04/29/24 03:18
04/29/24 03:18
Microbiology
04/27/24 14:00 Blood/Venous Blood Culture - Preliminary
Pseudomonas aeruginosa
04/27/24 14:00 Blood/Venous Gram Stain - Preliminary
04/27/24 13:19 Blood/Venous Blood Culture - Preliminary
No Growth in 24 hours- Final report to follow
[2024-04-29 09:47] LABS: Glycohemoglobin (HgbA1c) 6.2 % (4.0-5.6)
[2024-04-29] MEDS: TOPROL XL 12.5 MG PO (10:49)
[2024-04-29] MEDS: MAXIPIME 2000 MG IV ×2 (10:53→22:32)
[2024-04-29] MEDS: STERILE WATER FOR INJECTION 10 ML IV ×2 (10:56→22:32)
--- NOTE | 2024-04-29 11:34 | W.PN.HOSP.TC ---
Today's Communication/Plan
-
continue IV abx
follow repeat cultures
continue medical management of CAD
Assessment / Plan
Assessment / Plan
Assessment:
Acute hypoxic respiratory insufficiency - due to pneumonitis vs volume overload. Oxygenation improved, now on RA. Reportedly was 89% on room air prior to arrival and briefly required 2L NC.
Acute pneumonitis vs volume overload on CT
- CT read: increased reticular and ground-glass opacities within both lungs. Bronchial wall thickening mainly within the lower lungs suggesting bronchitis.
- d/w pulm/onc, unlikely pneumonitis at this point, only started chemo x 1 week ago
- also CXR rapidly improved, s/p 1 IV Lasix dose, so more likely volume overload possibly in setting of NSTEMI
- continue Cefepime/doxy, day 3/5
- continue to monitor
Fever
Pseudomonas bacteremia
- unclear source, GI vs vs PORT
- continue Cefepime, day 2
- follow cultures
- ID following
FAIZA on CKD stage 3b
- possibly due to volume depletion. Creatinine 1.3, BUN 25. Prerenal azotemia. stop LAURA
NSTEMI
- EKG: shows left bundle branch block with sinus rhythm
- trop peaked at .688
- continue Toprol
- continue ASA/Plavix
- LDL 61; statin
- LHC: Significant coronary artery disease involving 50% distal left main stenosis extending into 80% ostial left circumflex stenosis, 70% ostial ramus intermedius artery stenosis and 50 to 60% ostial LAD stenosis. Significantly elevated LVEDP at 33
mmHg.
- Echo: EF 65%, mild AR, mild , trace TR
- DCA cards and CT surgery following; CABG offered, patient will f/u oupatient in 3 months.
Essential HTN
- continue Norvasc 5mg daily + Toprol XL
- LAURA stopped
Colon cancer - T3. Just started chemotherapy on with 1 dose of oxaliplatin and oral Xeloda. Has a port in place. Oncology following.
ALMA -on CPAP at bedtime.
HCV
Code: DNR
Anticipated Discharge: > 48 hours
Subjective/Interval History
-
Date of Service: April 29, 2024
no complaints
Objective Data
-
Labs:
Laboratory Results
04/29/24
03:18
WBC 6.7
Hgb 10.6 L
Hct 31.8 L
Plt Count 230
Sodium 137
Potassium 4.3
Chloride 103
Carbon Dioxide 25
BUN 24 H
Creatinine 1.5 H
Glucose 103 H
Calcium 8.9
Vital Signs:
Vital Signs
Temp Pulse Resp BP Pulse Ox
97.7 F 68 20 136/71 99
04/29/24 07:10 04/29/24 10:49 04/29/24 07:10 04/29/24 10:49 04/29/24 09:23
I&O
04/28/24 04/29/24 04/30/24
06:59 06:59 06:59
Intake Total 480 / 480
Balance 480 / 480
Physical Exam
-
General: No Apparent Distress
HEENT: Normocephalic and Atraumatic
Respiratory: Negative Wheezes
Cardiac: Regular Rhythm and S1/S2
GI: Soft and Nontender
Musculoskeletal: No Edema
Neuro: AO x 3
Psych: Calm
Data Reviewed
-
Total Time Spent with Patient (in minutes): 42
Labs: Labs Reviewed by me
--- NOTE | 2024-04-29 11:40 | W.PN.ONC ---
Today's Communication / Plan
-
6/7 WBC 6.7, Hgb 10.6, PLT 230
s/p first round of chemotherapy 04/21/24 with Oxaliplatin and oral Xeloda
Holding Xeloda at this time
6/5 +blood cultures: pseudomonas aeruginosa
Cefepime per Infectious Disease - follow repeat blood cultures
Removal of port to be considered with unclear source of infection- Port placed 04/19/24
Continue supportive care
Patient is scheduled for IV iron at [facility] Mon 05/02 - explained to patient that we cannot administer IV iron with active infection.
[facility] office has been updated of patient's clinical status. We will follow.
Impression
Impression
Stage III colon cancer, s/p first cycle of Oxaliplatin and Xeloda (04/21/24)
Shortness of breath and chest pain
Interstitial lung process
Pseudomonas bacteremia
Treated Hepatitis C
Anxiety
Iron deficiency
Subjective/Objective
Subjective/Objective
patient sitting on the side of the bed, talkative and pleasant. denies pain or acute shortness of breath. he notes fatigue. He is eager for discharge. Denies evidence of hand foot syndrome. denies neuropathy.
Vital Signs:
Vital Signs
Temp Pulse Resp BP Pulse Ox
97.7 F 68 20 136/71 99
04/29/24 07:10 04/29/24 10:49 04/29/24 07:10 04/29/24 10:49 04/29/24 09:23
Lab Results:
Laboratory Data
WBC 6.7 10^3/uL (4.8-10.8) 04/29/24 03:18
Hgb 10.6 g/dL (13.0-18.0) L 04/29/24 03:18
Plt Count 230 10^3/uL (130-400) 04/29/24 03:18
APTT Cancelled 04/28/24 00:22
eGFR 47.06 04/29/24 03:18
physical exam:
aaox3, pallor
HRR, bradycardia
room air, lungs diminished/clear
+bowel sounds
04/27/24 CXR: No findings to suggest pneumonia.
04/28/24 Abdominal US: MILD HEPATIC CIRRHOSIS without sonographic evidence for hepatocellular carcinoma. No sonographic evidence for cholelithiasis or biliary obstruction.Mild chronic bilateral renal disease. Severe calcific atherosclerotic plaque in
the abdominal aorta.
--- NOTE | 2024-04-29 12:00 | PTCARENOTE ---
Prior assessment unchanged, pt is ambulating in the hallway and conversing with staff. He remains in good spirits.
--- NOTE | 2024-04-29 13:19 | CM ---
Reviewed chart. Met [facility] Mr. Bhatti to review discharge plans. He states he is feeling well and is hoping to be able to go home soon. He is awaiting repeat cultures to see if he can go home on oral ABX or if he will need IV ABX. He states he will
not need [facility] if he goes home on oral ABX. He will need Home infusion and [facility] Services if he goes home on IV ABX. Prior to admission he resides alone in a two story home with two steps to enter. He has a first floor set-up. Prior to
admission he was independent with ambulation and adls. He has a prescription plan and uses [facility]. Medical work-up in progress. The discharge plan is to return home when medically stable.
--- NOTE | 2024-04-29 16:00 | PTCARENOTE ---
Prior assessment remains unchanged. Heart and lung sounds unchanged. Pt continues to ambulate in the [place] and activity level. Infection prevention education provided including hand hygiene, port care, and plan of care.
--- NOTE | 2024-04-29 18:51 | W.PN.UPDATE ---
Update Note
Progress Note Update
As per nurse patient wants to be full code.
--- NOTE | 2024-04-29 20:59 | PTCARENOTE ---
Pt received at start of shift, HR SB/SR w/ BBB. Pt appears in high spirits. At change of shift, pt declared want to switch from DNR to full code. Code status changed. Pt expresses desire to get out of hospital soon as possible. Pt updated on plan of
care, reinforced troponin levels and significance of them being elevated. Pt states no further questions. Pt denies any CP, SOB, or lightheadedness/dizziness at this time. Informed to notify RN if any changes, call coughlin within reach.
[2024-04-29] MEDS: XANAX 0.5 MG PO (22:31)
[2024-04-29] MEDS: PROTONIX 40 MG PO (22:31)
[2024-04-29] MEDS: TYLENOL 650 MG PO (22:46)
[2024-04-30 03:49] VITALS: BP 108/60
[2024-04-30 04:30] LABS: Hematocrit 30.7 % (39.0-52.0); Hemoglobin 10.3 g/dL (13.0-18.0); Mean Corp Hgb Conc. 33.6 g/dL (33.0-37.0); Mean Corpuscular Hgb 29.9 pg (27.0-31.0); Platelet Count 240 10^3/uL (130-400); Red Blood Cell Count 3.45 10^6/uL (4.70-6.10); White Blood Cell Count 6.4 10^3/uL (4.8-10.8)
[2024-04-30 04:57] LABS: Blood Urea Nitrogen 26 mg/dl (9-20); Carbon Dioxide 25 mmol/L (22-30); Chloride 105 mmol/L (98-107); Estimated Creatinine Clearance 37 ml/min; Glucose 101 mg/dl (70-99); Potassium 4.4 mmol/L (3.5-5.1); Sodium 137 mmol/L (135-145); eGFR 43.56
[2024-04-30 08:40] VITALS: BP 129/61
[2024-04-30 08:49] VITALS: BMI 26.9
[2024-04-30] MEDS: TOPROL XL 12.5 MG PO (09:31)
[2024-04-30] MEDS: NORVASC 5 MG PO (09:31)
[2024-04-30] MEDS: LOW STRENGTH ASPIRIN 81 MG PO (09:31)
[2024-04-30] MEDS: LIPITOR 80 MG PO (09:31)
[2024-04-30] MEDS: PLAVIX 75 MG PO (09:31)
[2024-04-30] MEDS: ZITHROMAX 500 MG PO (09:31)
[2024-04-30] MEDS: MAXIPIME 2000 MG IV (09:32)
[2024-04-30] MEDS: STERILE WATER FOR INJECTION 10 ML IV (09:32)
--- NOTE | 2024-04-30 10:46 | W.PN.HOSP.TC ---
Today's Communication/Plan
-
Awaiting ID recs
continue cardiac meds
Assessment / Plan
Assessment / Plan
Assessment:
Acute hypoxic respiratory insufficiency - due to pneumonitis vs volume overload. Oxygenation improved, now on RA. Reportedly was 89% on room air prior to arrival and briefly required 2L NC.
Acute pneumonitis vs volume overload on CT
- CT read: increased reticular and ground-glass opacities within both lungs. Bronchial wall thickening mainly within the lower lungs suggesting bronchitis.
- d/w pulm/onc, unlikely pneumonitis at this point, only started chemo x 1 week ago
- also CXR rapidly improved, s/p 1 IV Lasix dose, so more likely volume overload possibly in setting of NSTEMI
- continue Cefepime/doxy, day 4/5
- continue to monitor
Fever
Pseudomonas bacteremia, pansensitive
- unclear source, GI vs vs PORT
- continue Cefepime, day 3
- repeat cultures NGTD
- appreciate ID recs
FAIZA on CKD stage 3b
- possibly due to volume depletion. Creatinine 1.3, BUN 25. Prerenal azotemia. stop LAURA
NSTEMI
- EKG: shows left bundle branch block with sinus rhythm
- trop peaked at .688
- continue Toprol
- continue ASA/Plavix
- LDL 61; statin
- LHC: Significant coronary artery disease involving 50% distal left main stenosis extending into 80% ostial left circumflex stenosis, 70% ostial ramus intermedius artery stenosis and 50 to 60% ostial LAD stenosis. Significantly elevated LVEDP at 33
mmHg.
- Echo: EF 65%, mild AR, mild , trace TR
- DCA cards and CT surgery following; CABG offered, patient will f/u outpatient in 3 months.
Essential HTN
- continue Norvasc 5mg daily + Toprol XL
- LAURA stopped
Colon cancer - T3. Just started chemotherapy on with 1 dose of oxaliplatin and oral Xeloda. Has a port in place. Oncology following.
ALMA -on CPAP at bedtime.
HCV
Code: DNR
Anticipated Discharge: 24 - 48 hours
Subjective/Interval History
-
Date of Service: April 30, 2024
denies any new complaints
Objective Data
-
Labs:
Laboratory Results
04/30/24
03:57
WBC 6.4
Hgb 10.3 L
Hct 30.7 L
Plt Count 240
Sodium 137
Potassium 4.4
Chloride 105
Carbon Dioxide 25
BUN 26 H
Creatinine 1.6 H
Glucose 101 H
Calcium 9.0
Vital Signs:
Vital Signs
Temp Pulse Resp BP Pulse Ox
97.4 F 75 18 129/61 100
04/30/24 08:39 04/30/24 09:31 04/30/24 08:39 04/30/24 09:31 04/30/24 08:39
I&O
04/29/24 04/30/24 05/01/24
06:59 06:59 06:59
Intake Total 480 / 480 600 / 600
Balance 480 / 480 600 / 600
Physical Exam
-
General: No Apparent Distress
HEENT: Normocephalic and Atraumatic
Respiratory: Negative Wheezes or Rales
Cardiac: Regular Rhythm and S1/S2
GI: Soft and Nontender
Musculoskeletal: No Edema
Neuro: AO x 3
Hematologic / Lymphatic: No Lymphadenopathy
Psych: Calm
Data Reviewed
-
Total Time Spent with Patient (in minutes): 42
Labs: Labs Reviewed by me
--- NOTE | 2024-04-30 11:57 | W.PN.ID1 ---
Date of Service
Date of Service: April 30, 2024
Today's Communication
Can transition cefepime to cipro 500mg po bid through 05/11/24. QTc <500.
Assessment / Plan
Pseudomonas bacteremia (1 of 2 sets bcx)
Fever - resolved
Pulmonary infiltrates
FAIZA on CKD
HTN
Dyslipidemia
GERD
Anxiety
Stage III colon cancer (Dx 01/2024; on current chemo)
Hx hep C
Cardiac murmur
Recommendations:
Source of recovered Pseudomonas not immediately clear. Exam is nonfocal. Abd US unremarkable.
Unlikely port source since only recently placed.
Repeat bcx's negative.
Can transition cefepime to cipro 500mg po bid through 05/11/24. QTc <500.
Chief Complaint
-: Bacteremia
Subjective / Review of Systems
Feels well. Wants to go home.
Vital Signs / Physical Exam
Vital Signs
Vital Signs
Temp Pulse Resp BP Pulse Ox
97.4 F 75 18 129/61 100
04/30/24 08:39 04/30/24 09:31 04/30/24 08:39 04/30/24 09:31 04/30/24 08:39
Physical Exam
Constitutional: No Acute Distress and Comfortable
Pulmonary: Clear
Gastrointestinal: Non Tender and Non Distended
Neurological: AO x 3
Lines: Port (RCW no erythema)
Objective Data
Lab Data
Lab Results
04/30/24 03:57
04/30/24 03:57
APTT Cancelled 04/28/24 00:22
Estimated Creat Clear 37 ml/min 04/30/24 03:57
Total Bilirubin 0.7 mg/dl (0.2-1.3) 04/28/24 03:22
AST 46 U/L (17-59) 04/28/24 03:22
ALT 21 U/L (0-50) 04/28/24 03:22
Alkaline Phosphatase 74 U/L (38-126) 04/28/24 03:22
Most recent labs reviewed.
Micro Results:
04/27/24 14:00 Blood Culture - Preliminary
Blood/Venous Pseudomonas aeruginosa
Gram Stain - Preliminary
04/28/24 19:19 Blood Culture - Preliminary
Blood/Venous No Growth in 24 hours- Final report to follow
04/28/24 17:31 Blood Culture - Preliminary
Blood/Venous No Growth in 24 hours- Final report to follow
04/27/24 13:19 Blood Culture - Preliminary
Blood/Venous No Growth in 48 hours- Final report to follow
04/27/24 15:05 Urine Culture - Final
Urine NO GROWTH
Imaging:
04/28/2024 Abdominal ultrasound:
1. MILD HEPATIC CIRRHOSIS without sonographic evidence for hepatocellular carcinoma.
2. No sonographic evidence for cholelithiasis or biliary obstruction.
3. Mild chronic bilateral renal disease.
4. Severe calcific atherosclerotic plaque in the abdominal aorta.
04/24/2024 CT chest (PE study): No evidence of PE. Increased reticular and groundglass opacities within both lungs, likely representing pneumonitis. Pulmonary edema remains on the differential. Small amount of fluid within the pleural fissure on
the right. Bronchial wall thickening, mainly within the lower lungs. Please see full dictation for additional detail.
Care Review
Plan reviewed with: Physician (Dr. Moran)
--- NOTE | 2024-04-30 12:49 | W.DS.TRANS ---
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
-
Discharge Instructions:
Discharge Diagnosis/Procedures hypoxia/sob - resolved. most likely fluid, not
likely pneumonitis. triple vessel CAD,
pseudomonas bacteremia
Diet Low Cholesterol,2 Gram Sodium
Activity As tolerated
Bathing Restrictions None
Instructions:
Stand-Alone Forms: DC Instructions- Cath/EP Lab
Changes to Home Medications: Yes
Discharge Medications:
DC Medications w/original date entered in [employer]
alprazolam 0.5 mg tablet 0.5 mg PO HS anxiety/sleep 04/19/24
polyethylene glycol 3350 17 gram oral powder packet (Miralax) 17 g PO DAILY PRN constipation 04/19/24
omeprazole 20 mg capsule,delayed release 40 mg PO HS Gastrointestinal Issue 04/24/24
ondansetron 8 mg disintegrating tablet 8 mg PO Q8H PRN nausea/vomiting 04/24/24
prochlorperazine maleate 10 mg tablet 10 mg PO Q6H PRN nausea/vomiting 04/24/24
amlodipine 5 mg tablet 5 mg PO DAILY Blood Pressure #30 tabs 04/30/24
aspirin 81 mg chewable tablet (Children's Aspirin) 81 mg PO DAILY #100 tabs 04/30/24
atorvastatin 80 mg tablet 80 mg PO DAILY #30 tabs 04/30/24
ciprofloxacin HCl 500 mg tablet (Cipro) 500 mg PO BID #24 tabs 04/30/24
clopidogrel 75 mg tablet 75 mg PO DAILY #30 tabs 04/30/24
metoprolol succinate 25 mg tablet,extended release 24 hr 12.5 mg (1/2 x 25 mg) PO DAILY #30 tabs 04/30/24
Home Medication Changes
stop LAURA
Pending Results: No
Total time spent discharging patient (in min): 42
[2024-04-30 12:54] VITALS: BP 99/55
[2024-04-30 12:56] VITALS: BP 126/73
== END 2024-04-30 14:48 | disposition home or self-care (01) | DRG 205 ==
LOC: IVU 13:29
PROVIDERS: Clinical Nurse Specialist Acute Care; Clinical Nurse Specialist Family Health; Internal Medicine Interventional Cardiology; Nurse Practitioner; Physician Assistant Medical; ADMITTING PHYSICIAN Hospitalist; ATTENDING PHYSICIAN Internal Medicine; CONSULT PHYSICIAN Internal Medicine; CONSULT PHYSICIAN Internal Medicine Cardiovascular Disease; CONSULT PHYSICIAN Internal Medicine Critical Care Medicine; CONSULT PHYSICIAN Internal Medicine Infectious Disease; CONSULT PHYSICIAN Thoracic Surgery (Cardiothoracic Vascular Surgery); EMERGENCY PHYSICIAN Emergency Medicine; FAMILY PHYSICIAN Student in an Organized Health Care Education/Training Program; OTHER PHYSICIAN Internal Medicine Hematology & Oncology
PROC: B2111ZZ Fluoroscopy of Multiple Coronary Arteries using Low Osmolar Contrast (ICD-10-PCS; 2024-04-26)
PROC: 4A023N7 Measurement of Cardiac Sampling and Pressure, Left Heart, Percutaneous Approach (ICD-10-PCS; 2024-04-26)
PROC: B2151ZZ Fluoroscopy of Left Heart using Low Osmolar Contrast (ICD-10-PCS; 2024-04-26)
DX: J98.4 Other disorders of lung (principal); I21.4 Non-ST elevation (NSTEMI) myocardial infarction; I50.31 Acute diastolic (congestive) heart failure; R78.81 Bacteremia; N17.9 Acute kidney failure, unspecified; Z87.891 Personal history of nicotine dependence; R09.02 Hypoxemia; I25.10 Atherosclerotic heart disease of native coronary artery without angina pectoris; B96.5 Pseudomonas (aeruginosa) (mallei) (pseudomallei) as the cause of diseases classified elsewhere; R06.89 Other abnormalities of breathing; N18.32 Chronic kidney disease, stage 3b; B19.20 Unspecified viral hepatitis C without hepatic coma; G47.33 Obstructive sleep apnea (adult) (pediatric); T45.1X5A Adverse effect of antineoplastic and immunosuppressive drugs, initial encounter; J18.9 Pneumonia, unspecified organism
CPT/HCPCS: 71045; 71046; 71275; 76700; 80048; 80053; 80061; 81003; 81015; 82248; 83036; 83880; 84145; 84484; 85025; 85027; 85730; 87040; 87086; 87149; 87186; 87205; 93005; 93306; 93458; 94640; 94660; 96365; 96366; 96375; 97162; 97166; 99291; C1894; Q9967

== ENCOUNTER 2024-05-16 15:17 | Emergency (ER) | payer MEDICARE, OTHER, SELFPAY ==
[2024-05-16 15:36] VITALS: BP 156/78
[2024-05-16 16:05] LABS: % Eosinophils 0.1 % (0-6); % Immature Granulocytes 0.4 % (0-0.5); % Lymphocytes 9.6 % (20.5-51.1); % Monocytes 0.5 % (1.7-9.3); % Neutrophils 88.4 % (42.2-75.2); Absolute Basophils 0.1 10^3/uL (0-0.2); Absolute Lymphocytes 0.8 10^3/uL (1.2-3.4); Hematocrit 34.2 % (39.0-52.0); Hemoglobin 11.7 g/dL (13.0-18.0); Mean Corp Hgb Conc. 34.2 g/dL (33.0-37.0); Mean Corpuscular Hgb 29.4 pg (27.0-31.0); Mean Corpuscular Volume 85.9 fL (80.0-94.0); Mean Platelet Volume 9.3 fL (7.4-10.4); Nucleated Red Blood Cells % 0 % (-); Platelet Count 324 10^3/uL (130-400); Red Blood Cell Count 3.98 10^6/uL (4.70-6.10); Red Cell Dist. Width 13.5 % (11.5-14.5); White Blood Cell Count 7.9 10^3/uL (4.8-10.8)
[2024-05-16 16:17] LABS: ALT (SGPT) 24 U/L (0-50); AST (SGOT) 33 U/L (17-59); Albumin 4.7 g/dl (3.5-5.0); Alkaline Phosphatase 94 U/L (38-126); Blood Urea Nitrogen 16 mg/dl (9-20); Calcium 10.1 mg/dl (8.4-10.2); Carbon Dioxide 24 mmol/L (22-30); Chloride 107 mmol/L (98-107); Glucose 147 mg/dl (70-99); Potassium 4.3 mmol/L (3.5-5.1); Sodium 138 mmol/L (135-145); Total Bilirubin 1.3 mg/dl (0.2-1.3); Total Protein 7.7 g/dl (6.3-8.2); eGFR > 60.00
[2024-05-16 16:29] LABS: Troponin I 0.014 ng/ml
[2024-05-16 16:36] LABS: Lipase 64 U/L (23-300)
[2024-05-16 17:53] VITALS: BP 159/75
[2024-05-16 17:57] VITALS: BMI 27.0
[2024-05-16 18:00] VITALS: BP 150/68
[2024-05-16 18:47] LABS: Urine Albumin Negative (Neg - Trace); Urine Bilirubin Negative (Negative); Urine Character Clear (Clear); Urine Color Yellow; Urine Glucose Negative (Negative); Urine Ketone Negative (Negative); Urine Leukocyte Negative (Negative); Urine Nitrite Negative (Negative); Urine Occult Blood Negative (Negative); Urine Urobilinogen Negative (Neg - 1+); Urine pH 6.5 (5.0-9.0)
[2024-05-16 19:19] LABS: Troponin I 0.016 ng/ml
[2024-05-16 20:05] VITALS: BP 154/63
--- NOTE | 2024-05-16 22:51 | ED.GENMED ---
History of Present Illness
General
Chief Complaint: Chest Pain
Source: patient
Exam Limitations: none
Time Seen by Provider: 05/16/24 17:51
Nursing documentation reviewed up to this point in time: agreed with
History of Present Illness
History of Present Illness:
Patient to ED with cmplaint of middle chest pain. Pain started this afternoon. No radiation of pain. No SOB. Denies n/v/diaphoresis. Brought self to ED for eval. Pain has resolved.
Past History
Past History
ED Past Medical History: CHF, GERD, HTN and Hypercholesterolemia
Social History
Tobacco: Non-smoker
Alcohol: None
Drug: None
Review of Systems
Review of Systems
Allergies reviewed?: Yes
All Other Systems: ROS reviewed and negative except as documented in HPI and ROS
Constitutional: Reports no symptoms
EENT: Reports no symptoms
Respiratory: Reports no symptoms
Cardiac: Reports chest pain
ABD/GI: Reports no symptoms
: Reports no symptoms
Musculoskeletal: Reports no symptoms
Skin: Reports no symptoms
Neurological: Reports no symptoms
Psychiatric: Reports no symptoms
Phy Exam
General Physical Exam
General Presentation: well appearing and no apparent distress
General age: appears stated age
General Skin: warm and dry
General Habitus: normal
Cardiovascular Exam
Cardiovascular Exam: regular rate/rhythm and no edema
Pulmonary Exam
Pulmonary Exam: lungs clear and no respiratory distress
Gastrointestinal Exam
Gastrointestinal Exam: normal bowel sounds, non tender and soft
Musculoskeletal Exam
Musculoskeletal Exam: full ROM and neuro vasc intact
Skin Exam
Skin Exam: normal color, warm/dry and no rash
Psychiatric Exam
Psychiatric Exam: normal mood/affect
Scores
Heart Score for Chest Pain Patients
STEMI patient?: No
History: Slightly or Non-Suspicious
ECG: Normal
Age: >/= 65 years
Risk Factors: >/= 3 Risk Factors or History of CAD
Troponin: </= Normal Limit
Heart Score for Chest Pain Patients: 4
Heart Score Risk: 20.3% MACE over next 6 weeks
Course
Orders/Labs/Results
Orders:
Orders
05/16/24 15:24
ECG [Electrocardiogram (*1)] Urgent
Reason for Study: Chest Pain
EKG- Treatment ONCE
05/16/24 15:54
Complete Blood Count/With Diff Urgent
Comprehensive Metabolic Panel Urgent
Lipase Urgent
Troponin I Urgent
05/16/24 17:15
CXR2 [CR Chest - 2 Views ] Urgent
Comment:
Reason For Exam: chest pain
05/16/24 18:41
Troponin I Urgent
Urinalysis Reflex To Culture Urgent
Date Specimen was Collected: 05/16/24
Time Specimen was Collected: 18:35
Abnormal Lab Results
05/16/24
15:54
RBC 3.98 L 10^6/uL
(4.70-6.10)
Hgb 11.7 L g/dL
(13.0-18.0)
Hct 34.2 L %
(39.0-52.0)
Absolute Neuts (auto) 7.0 H 10^3/uL
(1.4-6.5)
Absolute Lymphs (auto) 0.8 L 10^3/uL
(1.2-3.4)
Absolute Monos (auto) 0.0 L 10^3/uL
(0.1-0.6)
Neutrophils % 88.4 H %
(42.2-75.2)
Lymphocytes % 9.6 L %
(20.5-51.1)
Monocytes % 0.5 L %
(1.7-9.3)
Glucose 147 H mg/dl
(70-99)
05/16/24 15:54
05/16/24 15:54
Vital Signs
Initial and Last Documented VS:
Initial Vital Signs
Temp Pulse Resp BP Pulse Ox
98.2 F 80 20 156/78 97
05/16/24 15:36 05/16/24 15:36 05/16/24 15:36 05/16/24 15:36 05/16/24 15:36
Last Documented Vital Signs
Temp Pulse Resp BP Pulse Ox
98.2 F 64 18 154/63 95
05/16/24 15:36 05/16/24 19:45 05/16/24 19:45 05/16/24 20:05 05/16/24 18:30
*Radiology
Radiology exam reviewed: radiology read reviewed
*Pulse Oximetry
Patient hypoxic: no
*Critical Care Note
Total Time (30-74mins, 75-104mins- exclusive of procedures): Not Applicable
Update Note
Update Note:
Lab, EKG reviewed. No concerning findings on exam. Troponin neg x 2. Asymptomatic in dept. He is discharged home and will follow up with [facility]. given instructions on s/s to return to ED and he is agreeable to plan
ED Attending Note
-
Portions of this chart may have been created with voice recognition software.� Occasional wrong word or��sound alike� substitutions may have occurred due to the inherent limitations of voice recognition software.
Discharge Plan
Departure
Patient Disposition: Home (Routine Discharge)
Date of Disposition: 05/16/24
Time of Disposition: 19:24
Patient with high blood pressure during this ER visit?: No
Condition: Good
Covid-19: Not Applicable
Discharge Problem:
Chest pain
Instructions: Chest Pain PCP Follow Up
Prescriptions:
No Action
polyethylene glycol 3350 [Miralax] 17 gram Powder In Packet
17 g PO DAILY PRN (Reason: constipation)
alprazolam 0.5 mg Tablet
0.5 mg PO HS
Patient Comments:
04/24/2024: last filled 10/16/23, 30 tabs for 30 days from [facility]
prochlorperazine maleate 10 mg tablet
10 mg PO Q6H PRN (Reason: nausea/vomiting)
ondansetron 8 mg tablet,disintegrating
8 mg PO Q8H PRN (Reason: nausea/vomiting)
omeprazole 20 mg capsule,delayed release(DR/EC)
40 mg PO HS
ciprofloxacin HCl [Cipro] 500 mg tablet
500 mg PO BID Qty: 24 0RF
atorvastatin 80 mg Tablet
80 mg PO DAILY Qty: 30 0RF
clopidogrel 75 mg Tablet
75 mg PO DAILY Qty: 30 0RF
metoprolol succinate 25 mg Tablet Extended Release 24 Hr
12.5 mg PO DAILY Qty: 30 0RF
aspirin [Children's Aspirin] 81 mg Tablet,Chewable
81 mg PO DAILY Qty: 100 0RF
amlodipine 5 mg Tablet
5 mg PO DAILY Qty: 30 0RF
Referrals:
Yael Jean MD [Family Provider] -
Activity Restrictions/Additional Instructions:
Follow up with your [facility]. Return to the emergency department immediately for any changes in/worsening of your symptoms
Interventions
Interventions:
*Risk Screen - Suicide Last Done: 05/16/24 17:57
*General Assessment Last Done: 05/16/24 17:57
*Neglect/Abuse Screening Last Done: 05/16/24 17:57
ED- Fall Risk Assessment Last Done: 05/16/24 17:57
*ED COVID-19 Vaccine History Last Done: 05/16/24 15:36
*Nursing Disposition Last Done: 05/16/24 20:05
ED- Cardiac Assessment Last Done: 05/16/24 17:57
Discharge Date and Time
Discharge Date/Time: 05/16/24 20:06
Print Language: [id number]
== END 2024-05-16 20:06 | disposition home or self-care (01) ==
LOC: EMR 15:17
PROVIDERS: Nurse Practitioner; EMERGENCY PHYSICIAN Emergency Medicine; FAMILY PHYSICIAN Student in an Organized Health Care Education/Training Program
DX: R07.89 Other chest pain (principal)
CPT/HCPCS: 99285; 71046; 80053; 81003; 83690; 84484; 85025; 93005

== ENCOUNTER → 2024-08-29 16:08 | Outpatient (REF) | payer MEDICARE, OTHER, SELFPAY ==
[2024-08-29 09:41] LABS: % Basophils 1.4 % (0-2); % Eosinophils 3.5 % (0-6); % Immature Granulocytes 0.3 % (0-0.5); % Lymphocytes 29.2 % (20.5-51.1); % Monocytes 6.9 % (1.7-9.3); % Neutrophils 58.7 % (42.2-75.2); Absolute Basophils 0.1 10^3/uL (0-0.2); Absolute Eosinophils 0.2 10^3/uL (0-0.7); Absolute Lymphocytes 1.9 10^3/uL (1.2-3.4); Absolute Monocytes 0.4 10^3/uL (0.1-0.6); Absolute Neutrophils 3.7 10^3/uL (1.4-6.5); Hematocrit 38.4 % (39.0-52.0); Hemoglobin 13.5 g/dL (13.0-18.0); Mean Corp Hgb Conc. 35.2 g/dL (33.0-37.0); Mean Corpuscular Hgb 31.7 pg (27.0-31.0); Mean Corpuscular Volume 90.1 fL (80.0-94.0); Mean Platelet Volume 10.1 fL (7.4-10.4); Nucleated Red Blood Cells % 0 % (-); Platelet Count 265 10^3/uL (130-400); Red Blood Cell Count 4.26 10^6/uL (4.70-6.10); Red Cell Dist. Width 12.5 % (11.5-14.5); White Blood Cell Count 6.4 10^3/uL (4.8-10.8)
[2024-08-29 09:55] LABS: ALT (SGPT) 29 U/L (0-50); AST (SGOT) 26 U/L (17-59); Albumin 2.7 g/dl (3.5-5.0); Alkaline Phosphatase 88 U/L (38-126); Blood Urea Nitrogen 27 mg/dl (9-20); Calcium 9.2 mg/dl (8.4-10.2); Carbon Dioxide 23 mmol/L (22-30); Chloride 105 mmol/L (98-107); Glucose 114 mg/dl (70-99); Potassium 4.1 mmol/L (3.5-5.1); Sodium 141 mmol/L (135-145); Total Bilirubin 0.8 mg/dl (0.2-1.3); Total Protein 6.6 g/dl (6.3-8.2); eGFR 50.81
[2024-08-29 10:23] LABS: CEA 1.23 ng/ml
== END ==
LOC: OIDL 16:08
PROVIDERS: ATTENDING PHYSICIAN Internal Medicine Hematology & Oncology
DX: C18.3 Malignant neoplasm of hepatic flexure (principal)
CPT/HCPCS: 80048; 80076; 82378; 85025

== ENCOUNTER → 2024-09-01 13:10 | Outpatient (REF) | payer MEDICARE, OTHER, SELFPAY | LOC: HWRAD 13:10 | PROVIDERS: ATTENDING PHYSICIAN Internal Medicine Hematology & Oncology; FAMILY PHYSICIAN Student in an Organized Health Care Education/Training Program | DX: C18.3 Malignant neoplasm of hepatic flexure (principal); D50.8 Other iron deficiency anemias | CPT/HCPCS: 71260; 74177; Q9967 ==

== ENCOUNTER → 2024-10-11 07:07 | Outpatient (REF) | payer MEDICARE, OTHER, SELFPAY | LOC: PAVMRI 07:07 | PROVIDERS: ATTENDING PHYSICIAN Orthopaedic Surgery Hand Surgery; FAMILY PHYSICIAN Student in an Organized Health Care Education/Training Program | DX: L03.011 Cellulitis of right finger (principal); M19.041 Primary osteoarthritis, right hand | CPT/HCPCS: 73218 ==

== ENCOUNTER → 2024-10-25 09:11 | Outpatient (REF) | payer MEDICARE, OTHER, SELFPAY | LOC: HWRCS 09:11 | PROVIDERS: ATTENDING PHYSICIAN Internal Medicine Cardiovascular Disease; FAMILY PHYSICIAN Student in an Organized Health Care Education/Training Program | DX: R06.09 Other forms of dyspnea (principal) | CPT/HCPCS: 93306 ==

== ENCOUNTER → 2024-11-03 07:13 | Outpatient (REF) | payer MEDICARE, OTHER, SELFPAY ==
[2024-11-03] MEDS: LEXISCAN 0.4 MG IV (08:55)
== END ==
LOC: RCS 07:13
PROVIDERS: ATTENDING PHYSICIAN Internal Medicine Cardiovascular Disease; FAMILY PHYSICIAN Student in an Organized Health Care Education/Training Program
DX: R06.09 Other forms of dyspnea (principal)
CPT/HCPCS: 78452; 93017; A9500; J2785

== ENCOUNTER 2024-11-22 08:40 | Outpatient (RCR) | payer MEDICARE, OTHER, SELFPAY | END 2024-11-22 23:59 | disposition home or self-care (01) | LOC: CRHB 08:40 | PROVIDERS: ATTENDING PHYSICIAN Internal Medicine Cardiovascular Disease; FAMILY PHYSICIAN Student in an Organized Health Care Education/Training Program | DX: I25.2 Old myocardial infarction (principal); I25.10 Atherosclerotic heart disease of native coronary artery without angina pectoris (principal) | CPT/HCPCS: G0422; G0423 ==

== ENCOUNTER 2024-12-22 09:35 | Outpatient (RCR) | payer MEDICARE, OTHER, SELFPAY | END 2024-12-22 23:59 | disposition home or self-care (01) | LOC: CRHB 09:35 | PROVIDERS: ATTENDING PHYSICIAN Internal Medicine Cardiovascular Disease; FAMILY PHYSICIAN Student in an Organized Health Care Education/Training Program | DX: I25.2 Old myocardial infarction (principal) | CPT/HCPCS: G0422; G0423 ==

== ENCOUNTER → 2025-01-09 09:28 | Outpatient (REF) | payer MEDICARE, OTHER, SELFPAY | LOC: HWRAD 09:28 | PROVIDERS: ATTENDING PHYSICIAN Internal Medicine Gastroenterology; FAMILY PHYSICIAN Student in an Organized Health Care Education/Training Program; REFERRING PHYSICIAN Internal Medicine Hematology & Oncology | DX: K74.00 Hepatic fibrosis, unspecified (principal) | CPT/HCPCS: 76700 ==

== ENCOUNTER 2025-01-17 09:09 | Outpatient (RCR) | payer MEDICARE, OTHER, SELFPAY | END 2025-01-17 23:59 | disposition home or self-care (01) | LOC: CRHB 09:09 | PROVIDERS: ATTENDING PHYSICIAN Internal Medicine Cardiovascular Disease; FAMILY PHYSICIAN Student in an Organized Health Care Education/Training Program | DX: I25.2 Old myocardial infarction (principal); I21.4 Non-ST elevation (NSTEMI) myocardial infarction (principal) | CPT/HCPCS: G0422; G0423 ==

== ENCOUNTER 2025-02-16 10:32 | Outpatient (RCR) | payer MEDICARE, OTHER, SELFPAY | END 2025-02-16 23:59 | disposition home or self-care (01) | LOC: CRHB 10:32 | PROVIDERS: ATTENDING PHYSICIAN Internal Medicine Cardiovascular Disease; FAMILY PHYSICIAN Student in an Organized Health Care Education/Training Program | DX: I21.4 Non-ST elevation (NSTEMI) myocardial infarction (principal); I25.2 Old myocardial infarction; I25.10 Atherosclerotic heart disease of native coronary artery without angina pectoris | CPT/HCPCS: G0422; G0423 ==

== ENCOUNTER 2025-03-02 14:01 | Outpatient (RCR) | payer MEDICARE, OTHER, SELFPAY | END 2025-03-02 23:59 | disposition home or self-care (01) | LOC: CRHB 14:01 | PROVIDERS: ATTENDING PHYSICIAN Internal Medicine Cardiovascular Disease; FAMILY PHYSICIAN Student in an Organized Health Care Education/Training Program | DX: I21.4 Non-ST elevation (NSTEMI) myocardial infarction (principal); I25.10 Atherosclerotic heart disease of native coronary artery without angina pectoris; I25.2 Old myocardial infarction | CPT/HCPCS: G0422; G0423 ==

== ENCOUNTER → 2025-04-18 10:20 | Outpatient (REF) | payer MEDICARE, OTHER, SELFPAY | LOC: HWRCS 10:20 | PROVIDERS: ATTENDING PHYSICIAN Internal Medicine Cardiovascular Disease; FAMILY PHYSICIAN Student in an Organized Health Care Education/Training Program | DX: I35.0 Nonrheumatic aortic (valve) stenosis (principal) | CPT/HCPCS: 93306 ==

== ENCOUNTER → 2025-09-07 11:51 | Outpatient (REF) | payer MEDICARE, OTHER, SELFPAY | LOC: REG 11:51 | PROVIDERS: ATTENDING PHYSICIAN Internal Medicine Endocrinology, Diabetes & Metabolism; FAMILY PHYSICIAN Student in an Organized Health Care Education/Training Program | DX: R73.01 Impaired fasting glucose (principal) | CPT/HCPCS: 36415 ==

== ENCOUNTER → 2025-09-14 08:18 | Outpatient (REF) | payer MEDICARE, OTHER, SELFPAY | LOC: RAD 08:18 | PROVIDERS: ATTENDING PHYSICIAN Internal Medicine Hematology & Oncology; FAMILY PHYSICIAN Student in an Organized Health Care Education/Training Program | DX: C18.3 Malignant neoplasm of hepatic flexure (principal); D50.8 Other iron deficiency anemias | CPT/HCPCS: 71260; 74177; Q9967 ==